=== PATIENT | female | born 1960 | race Caucasian/White ===

== ENCOUNTER 2023-07-23 09:15 | Outpatient (AMB) | payer OTHER, SELFPAY ==
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
[2023-07-23 09:37] VITALS: BP 128/66; PULSE 71; O2SAT 98; BMI 30.2
== END 2023-07-23 10:55 | disposition home or self-care (01) ==
PROVIDERS: PCP Internal Medicine Endocrinology, Diabetes & Metabolism; Visit Provider Psychiatry & Neurology Neurology
DX: R41.89 Other symptoms and signs involving cognitive functions and awareness (principal); R20.0 Anesthesia of skin; R20.2 Paresthesia of skin; G25.81 Restless legs syndrome
CPT/HCPCS: 99204

== ENCOUNTER → 2023-07-23 09:15 | Outpatient (BNVA) | payer OTHER, SELFPAY | PROVIDERS: PCP Internal Medicine Endocrinology, Diabetes & Metabolism; Visit Provider Psychiatry & Neurology Neurology ==

== ENCOUNTER 2023-09-01 12:43 | Outpatient (REF) | payer OTHER, SELFPAY ==
--- NOTE | 2023-09-01 12:45 | EEG_ITS ---
FINDINGS: Waking background activity consists of low voltage fast frequencies seen diffusely intermixed with intermittent low to moderate voltage 9 to 10 hertz posterior alpha frequency. Photic stimulation and hyperventilation are without activation. No sleep stages are identified. No focal, lateralizing, or paroxysmal discharges are seen. IMPRESSION: This waking EEG is within normal limits. MD MAITE Herrera/LETI / [id number]
== END 2023-09-01 12:44 | disposition home or self-care (01) ==
LOC: HO.NEURO 12:43
PROVIDERS: PCP Internal Medicine Endocrinology, Diabetes & Metabolism; Visit Provider Psychiatry & Neurology Neurology
DX: F09 Unspecified mental disorder due to known physiological condition (principal)
CPT/HCPCS: 95816

== ENCOUNTER 2023-09-03 10:16 | Outpatient (REF) | payer OTHER, SELFPAY ==
--- NOTE | 2023-09-03 10:21 | EMG_ITS ---
Right median and ulnar motor and sensory studies were performed. Right radial and median and lateral antecubital brachial sensory studies were performed and paraspinal muscles were tested with a needle. IMPRESSION: Mild right median neuropathy across carpal tunnel. MD REBECCA Harrington/LETI / [id number]
== END 2023-09-03 10:17 | disposition home or self-care (01) ==
LOC: HO.NEURO 10:16
PROVIDERS: PCP Internal Medicine Endocrinology, Diabetes & Metabolism; Visit Provider Psychiatry & Neurology Neurology
DX: R20.0 Anesthesia of skin (principal); R20.2 Paresthesia of skin
CPT/HCPCS: 95886; 95910

== ENCOUNTER 2023-09-23 12:38 | Outpatient (RCR) | payer OTHER, SELFPAY ==
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
== END 2023-12-25 15:50 | disposition still patient (30) ==
LOC: HO.SH 12:38
PROVIDERS: Visit Provider Psychiatry & Neurology Neurology
DX: F09 Unspecified mental disorder due to known physiological condition (principal); I69.911 Memory deficit following unspecified cerebrovascular disease
CPT/HCPCS: 96125

== ENCOUNTER 2023-10-15 11:02 | Outpatient (REF) | payer OTHER, SELFPAY ==
--- NOTE | ~2023-10-15 | CT_ITS ---
EXAMINATION: CT HEAD WITHOUT CONTRAST CLINICAL INFORMATION: Mental disorder. Psychological condition. COMPARISON: None TECHNIQUE: Contiguous axial imaging was performed from the skull base to vertex without intravenous administration of contrast. This CT examination was performed using dose optimization techniques as appropriate, variously including the following: *Automated exposure control. *Adjustment of mA and/or kV according to patient size (this includes techniques or standardized protocols for targeted exams where dose is matched to indication/reason for exam; i.e. extremities or head). *Use of iterative reconstruction technique. DLP: 627 mGy-cm FINDINGS: There is no evidence of acute intracranial hemorrhage or edematous territorial infarction. Alva-white matter differentiation is preserved. Scattered and partially confluent hypoattenuation in the periventricular and deep white matter are consistent with moderate microangiopathy. Proportional prominence of the ventricles and sulcal spaces without evidence of obstructive hydrocephalus. No abnormal mass effect or midline shift. No extra-axial fluid collections. No acute soft tissue or osseous abnormalities. The mastoid air cells and visualized paranasal sinuses are clear. Bilateral lens extractions. Left-sided scleral banding. CT/CT head/brain wo IV con IMPRESSION: 1. No evidence of acute intracranial hemorrhage or edematous territorial infarction. 2. Moderate underlying microangiopathy and generalized cerebral volume loss.
== END 2023-10-15 11:03 | disposition home or self-care (01) ==
LOC: HO.CT 11:02
PROVIDERS: PCP Internal Medicine Endocrinology, Diabetes & Metabolism; Visit Provider Psychiatry & Neurology Neurology
DX: F09 Unspecified mental disorder due to known physiological condition (principal)
CPT/HCPCS: 70450

== ENCOUNTER 2023-11-19 10:12 | Outpatient (AMB) | payer OTHER, SELFPAY ==
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
[2023-11-19 10:32] VITALS: BP 130/82; PULSE 73; RESP 16; O2SAT 97; BMI 30.1
== END 2023-11-19 11:00 | disposition home or self-care (01) ==
PROVIDERS: PCP Internal Medicine Endocrinology, Diabetes & Metabolism; Visit Provider Psychiatry & Neurology Neurology
DX: R41.89 Other symptoms and signs involving cognitive functions and awareness (principal); R20.0 Anesthesia of skin; R20.2 Paresthesia of skin; G25.81 Restless legs syndrome; G56.01 Carpal tunnel syndrome, right upper limb
CPT/HCPCS: 99214; G2211

== ENCOUNTER → 2023-11-19 10:12 | Outpatient (BNVA) | payer OTHER, SELFPAY | PROVIDERS: PCP Internal Medicine Endocrinology, Diabetes & Metabolism; Visit Provider Psychiatry & Neurology Neurology | DX: F09 Unspecified mental disorder due to known physiological condition (principal); R20.0 Anesthesia of skin; R20.2 Paresthesia of skin; G25.81 Restless legs syndrome ==

== ENCOUNTER 2024-05-25 10:14 | Outpatient (AMB) | payer OTHER, SELFPAY ==
[2024-05-25 10:29] VITALS: BP 130/82; BMI 27.4
--- NOTE | 2024-05-25 10:29 | MHC.OFFVIS ---
Vital Signs 05/25/24 10:29 Height 5 ft 3 in Weight 154 lb 8 oz BMI 27.4 BP 130/82 Blood Pressure Location Rt brachial Position Sitting Intake Visit Reasons: 4 mo f/u-Memory Issues/Cog impaired Intake Note: patient presents for 4 month follow up memory. Allergies acetaminophen [From Percocet] Allergy (Mild, Verified 05/25/24 10:32) Migraine azathioprine [From Imuran] Allergy (Mild, Verified 05/25/24 10:32) Unknown celecoxib [From Celebrex] Allergy (Mild, Verified 05/25/24 10:32) Unknown latex Allergy (Mild, Verified 05/25/24 10:32) Unknown metformin Allergy (Mild, Verified 05/25/24 10:32) unknown oxycodone [From Percocet] Allergy (Mild, Verified 05/25/24 10:32) Migraine HPI Comments Details: 64 year old female with H/O anxiety, panic attacks and Cognitive decline presents today for a f/u. 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 She is still having trouble with anxiety Still having trouble with sleep even with Inspire - for sleep apnea - Still wakes up 3x a night, goes to the bathroom, water, and tries to read then goes back to sleep. Avoids the tablets and tv - overstimulates her. Started on Buspar 5mg for anxiety- takes the edge off but still gets startled when comes in the room. Started driving again and when cars pass her, she has panic attacks, heart starts racing, sweating. She is taking Citalopram 20 mg daily. Still taking Gabapentin 100 mg- RLS- Neuropathy -BLE Pramipexole 0.5mg at night only 1 dose. Mood, worried, is losing weight, and she worries about his health. Worries about the safety of her kids 37,35,26, and always prays. Prays a lot - shinto group, active with the bible study group and children's ministry. Works out daily, and has lost 24 pounds 154 today, was 170 last time. Plays on Iphone and memory puzzles, weekends goes out and hiking. Likes to cook but has to turn the seasoning down to remember which ones are used, and uses lots of stickies, and timer for laundry and household task. For cognitive and behavioral therapy, she can't drive very far so wants someone in [place], because it is confusing to her with navigation and directions for distances. [facility] Medical History Carpal tunnel syndrome of right wrist Restless legs syndrome (RLS) Numbness and tingling Cognitive disorder Prediabetes HTN (hypertension) Gastritis Hereditary spherocytosis Osteopenia GERD (gastroesophageal reflux disease) Small fiber neuropathy DVT (deep vein thrombosis) in Pulmonary emboli SLE (systemic lupus erythematosus related syndrome) Kidney stone Fibromyalgia SVT (supraventricular tachycardia) PVC (premature ventricular contraction) IBS (irritable bowel syndrome) Depression Anxiety PCOD (polycystic ovarian disease) Autoimmune hemolytic anemia Retinal detachment History of open sigmoidectomy Family History Father Diabetes Mother Diabetes Brother Diabetes Social History Unable to assess alcohol history related to: Unable to respond and Unknown Alcohol intake: never Patient Tobacco Use Status: Never used Tobacco Review of Systems Const All systems reviewed & are unremarkable except as noted in HPI and below Neuro Reports behavioral changes Psych Reports anxiety, Reports behavioral changes, Reports depression, Reports difficulty concentrating and Reports panic attacks Physical Exam Vital Signs: Last Vital Signs BP 130/82 05/25/24 10:29 BMI result Body Mass Index 27.4 Const General: cooperative, comfortable and no acute distress Nutritional Appearance: average body habitus Orientation/consciousness: patient oriented x3 HEENT Face and sinus: Yes normal facial exam and Yes face symmetric Mouth: tongue normal Eyes General: appearance normal, both eyes and all related structures Pupils: Equal, round and reactive pupils present, Pupils normal by confrontation and Pupil accommodation reflex normal Neck Neck: Yes full ROM and Yes supple Resp Effort & Inspection: normal respiratory effort and able to speak in complete sentences Neuro General: patient oriented x3, tone normal, moves all extremities, Normal light touch and pain sensation and CN's II-XI intact bilaterally Cranial nerves: Yes CN's II-XII intact bilaterally, Yes Facial sensation intact/muscles of mastication intact, Yes Equal, round and reactive pupils present, Yes Normal facial strength present, Yes Midline tongue present, Yes Ability to bilaterally rotate head present and Yes Ability to bilaterally elevate shoulders present Gait exam (Neuro): Normal gait present Motor exam (neuro): 5/5 motor strength present throughout Deep tendon reflexes (DTR's): Right triceps reflex intensity grade: 2+, Left triceps reflex intensity grade: 2+, Rt Biceps (C5, C6): 2+, Left biceps reflex intensity grade: 2+, Right brachioradialis reflex intensity grade: 2+, Left brachioradialis reflex intensity grade: 2+, Right patellar reflex intensity grade: 2+ and Left patellar reflex intensity grade: 2+ Coordination: [id number] test normal Psych Appearance: well kempt Speech and movement: Normal speech and movement present Affect: normal affect Attitude: cooperative Thought process: Normal thought process present Insight: Good insight present (Psych) Judgement: Good judgement present (Psych) Assessment & Plan Assessment & Plan (1) Restless legs syndrome (RLS): Code(s): G25.81 - Restless legs syndrome Category: Medical Plan: Increase Pramipexole to 0.75mg PO at bedtime. For Restless Leg Syndrome (2) Cognitive disorder: Code(s): F09 - Unspecified mental disorder due to known physiological condition Category: Medical Plan: Refer to psychiatry and psychology: Her cognitive issues are likely multi-factorial - poorly controlled mood, sleep deprivation etc. (3) Anxiety: Code(s): F41.9 - Anxiety disorder, unspecified Category: Medical Plan Increase Buspar to 10mg BID, as she continues to have anxiety and panic attacks while driving. Continue citalopram 20mg PO qd Orders: Referrals Psychiatry Outpatient Consultation Service F32.A - Depression, unspecified, F41.9 - Anxiety disorder, unspecified Speech and Hearing Referral F09 - Unspecified mental disorder due to known physiological condition Medications: New pramipexole 0.75 mg PO BEDTIME 30 tabs 5RF pramipexole 0.75 mg PO BEDTIME 30 tabs 5RF Changed From buspirone 5 mg PO BID 60 tabs 6RF To buspirone 10 mg PO BID 60 tabs 6RF Coding Level of Care Code Est Pt Level 4 (93281) Complex EM visit Add On G2211 Diagnoses Restless legs syndrome (RLS) G25.81 Cognitive disorder F09 Anxiety F41.9
== END 2024-05-25 11:12 | disposition home or self-care (01) ==
PROVIDERS: PCP Internal Medicine Endocrinology, Diabetes & Metabolism; Visit Provider Physician Assistant Medical
DX: G25.81 Restless legs syndrome (principal); F41.0 Panic disorder [episodic paroxysmal anxiety]
CPT/HCPCS: 99214

== ENCOUNTER → 2024-05-25 10:14 | Outpatient (BNVA) | payer OTHER, SELFPAY | PROVIDERS: PCP Internal Medicine Endocrinology, Diabetes & Metabolism; Visit Provider Physician Assistant Medical | DX: F09 Unspecified mental disorder due to known physiological condition (principal); R20.0 Anesthesia of skin; R20.2 Paresthesia of skin; G25.81 Restless legs syndrome; G56.01 Carpal tunnel syndrome, right upper limb ==

== ENCOUNTER 2024-06-17 13:49 | Outpatient (AMB) | payer OTHER, SELFPAY ==
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
== END 2024-06-17 14:51 | disposition home or self-care (01) ==
LOC: HO.HOP 13:49
PROVIDERS: PCP Internal Medicine Endocrinology, Diabetes & Metabolism; Visit Provider Clinical Nurse Specialist Psychiatric/Mental Health
DX: F41.1 Generalized anxiety disorder (principal); F41.0 Panic disorder [episodic paroxysmal anxiety]
CPT/HCPCS: 90792

== ENCOUNTER → 2024-06-17 13:49 | Outpatient (BNVA) | payer OTHER, SELFPAY | PROVIDERS: PCP Internal Medicine Endocrinology, Diabetes & Metabolism; Visit Provider Clinical Nurse Specialist Psychiatric/Mental Health | DX: F41.1 Generalized anxiety disorder (principal); F41.0 Panic disorder [episodic paroxysmal anxiety]; Z71.89 Other specified counseling | CPT/HCPCS: 90792 ==

== ENCOUNTER 2024-07-01 13:03 | Outpatient (AMB) | payer OTHER, SELFPAY ==
--- NOTE | 2024-07-01 13:06 | MHC.OFFVISPS ---
Intake Intake Visit Reasons: consult follow up Park Keeper Required: No Allergies acetaminophen [From Percocet] Allergy (Mild, Verified 05/25/24 10:32) Migraine azathioprine [From Imuran] Allergy (Mild, Verified 05/25/24 10:32) Unknown celecoxib [From Celebrex] Allergy (Mild, Verified 05/25/24 10:32) Unknown latex Allergy (Mild, Verified 05/25/24 10:32) Unknown metformin Allergy (Mild, Verified 05/25/24 10:32) unknown oxycodone [From Percocet] Allergy (Mild, Verified 05/25/24 10:32) Migraine Medication List - Last Reconciled 07/01/24 by Claudia Crook APRN amlodipine 10 mg PO DAILY apixaban (Eliquis) 5 mg PO BID buspirone 10 mg PO BID cholecalciferol (vitamin D3) 1,250 mcg PO QWEEK fluticasone propionate 50 mcg/actuation sprays intranasal gabapentin 100 mg PO BEDTIME guanfacine ER 1 mg PO QPM hydroxychloroquine 200 mg PO BID losartan 50 mg PO DAILY losartan 100 mg PO DAILY lubiprostone mcg PO onabotulinumtoxinA (Botox) IM ondansetron HCl 4 mg PO Q8H PRN pantoprazole 40 mg PO BID pramipexole 0.75 mg PO BEDTIME spironolactone 50 mg PO DAILY HPI- Psychiatric Chief Complaint: consult follow up HPI Narrative: Pt much improved. Lo reports feeling much better with medication; no side effects; Her PHQ9= 4 down from 9 and her GAD7 is 10 down from 20 . she has no side eefcts; she does not want to increase the mediction ; she would like to continue it and see how she feels in a feww weeks to moth. no SI no Hi. no dizziness no sedation Past Psychiatric History: Two 24 stays at [facility] after overdose on pills 2013 Subjective Subjective Subjective Medication Compliance: Yes Side effects from medications: No Review of Systems Medical Review of Systems: unchanged Mental Status Exam Mental Status Exam Patient Appearance: Well Grooomed and Appropriate Patient Orientation: Person, Place, Time and Situation Level of Consciousness: Awake, Appropriate and Alert Patient Behavior: Appropriate Mood Description: Calm Affect Description: Calm Patient Cognition Impaired: No Ability to Follow Directions: Good Speech Pattern: Clear and Appropriate Memory Description: Intact Hallucinations: None Delusions: Not Present Thought Process: Intact Thought Content: positive for Intact Judgement: Good Assessment and Plan Assessment & Plan (1) Generalized anxiety disorder with panic attacks: Status: Acute Code(s): F41.1 - Generalized anxiety disorder; F41.0 - Panic disorder [episodic paroxysmal anxiety] Plan continue tenex ER 1 mg daily retrun in 4-6 weeks Counseling and coordination of Care Pt. Self Management counseling: Maintenance-social rhythm, Mod caffeine/ETOH intake, Sleep hygiene, Behavior activation, General coping skills and Problem solving Medication management counseling: Effectiveness, Side effects, Dosing range, Duration, Drug interaction and Adherence Diagnosis and Prognosis Counseling: Accuracy of diagnosis, Prognosis over time, Impact of diagnosis on life functions, Impact of family relationship, Problematic behaviors secondary to diagnosis and Adequacy of current interventions Details: I spent 35 minutes reviewing the record, seeing the patient and documenting in the medical record. Counseling provided to the patient/caregiver as outlined below. Addressed patient/caregiver concerns regarding current medication regime including effective adherence. Addressed patient/caregiver concerns regarding diagnosis and prognosis including accuracy of diagnosis, prognosis over time, impact of diagnosis. Addressed patient/caregiver concerns regarding impact of recent stressors. [facility] Medical History Carpal tunnel syndrome of right wrist Restless legs syndrome (RLS) Numbness and tingling Cognitive disorder Prediabetes HTN (hypertension) Gastritis Hereditary spherocytosis Osteopenia GERD (gastroesophageal reflux disease) Small fiber neuropathy DVT (deep vein thrombosis) in Pulmonary emboli SLE (systemic lupus erythematosus related syndrome) Kidney stone Fibromyalgia SVT (supraventricular tachycardia) PVC (premature ventricular contraction) IBS (irritable bowel syndrome) Depression Anxiety PCOD (polycystic ovarian disease) Autoimmune hemolytic anemia Retinal detachment History of open sigmoidectomy Family History Father Diabetes Mother Diabetes Brother Diabetes Social History Unable to assess alcohol history related to: Unable to respond and Unknown Alcohol intake: never Patient Tobacco Use Status: Never used Tobacco Social History: lives with of 35 yrs. has 3 adult children and 5 grandchildren Substance History: none Trauma History: yes Coding Level of Care Code Est Pt Level 4 (59369) Diagnoses Generalized anxiety disorder with panic attacks F41.1; F41.0
== END 2024-07-01 13:04 | disposition home or self-care (01) ==
LOC: HO.HOP 13:03
PROVIDERS: PCP Internal Medicine Endocrinology, Diabetes & Metabolism; Visit Provider Clinical Nurse Specialist Psychiatric/Mental Health
DX: F41.1 Generalized anxiety disorder (principal); F41.0 Panic disorder [episodic paroxysmal anxiety]
CPT/HCPCS: 99214

== ENCOUNTER 2024-07-26 10:16 | Outpatient (AMB) | payer OTHER, SELFPAY ==
--- NOTE | 2024-07-26 10:21 | A.OFFPSYCH_ITS ---
Intake Intake Visit Reasons: consult follow up Hims Coder Required: No Allergies acetaminophen [From Percocet] Allergy (Mild, Verified 05/25/24 10:32) Migraine azathioprine [From Imuran] Allergy (Mild, Verified 05/25/24 10:32) Unknown celecoxib [From Celebrex] Allergy (Mild, Verified 05/25/24 10:32) Unknown latex Allergy (Mild, Verified 05/25/24 10:32) Unknown metformin Allergy (Mild, Verified 05/25/24 10:32) unknown oxycodone [From Percocet] Allergy (Mild, Verified 05/25/24 10:32) Migraine Medication List - Last Reconciled 07/26/24 by Claudia Crook APRN amlodipine 10 mg PO DAILY apixaban (Eliquis) 5 mg PO BID buspirone 10 mg PO BID cholecalciferol (vitamin D3) 1,250 mcg PO QWEEK fluticasone propionate 50 mcg/actuation sprays intranasal gabapentin 100 mg PO BEDTIME guanfacine ER 1 mg PO QPM hydroxychloroquine 200 mg PO BID losartan 50 mg PO DAILY losartan 100 mg PO DAILY lubiprostone mcg PO onabotulinumtoxinA (Botox) IM ondansetron HCl 4 mg PO Q8H PRN pantoprazole 40 mg PO BID pramipexole 0.75 mg PO BEDTIME spironolactone 50 mg PO DAILY HPI- Psychiatric Chief Complaint: consult follow up HPI Narrative: pt much more anxious; guanfacine not helping with sleep; in interim pt stopped the celexa completely; she also had a difficult family situation with her son being upset that she went to [place] to visit daughters terrance Cisse and then celebrated Betito with him and his family on the . Pt very upset that he was rude to her. She carson not sleeping well at all. No SI or HI. PHQ9=22 and GAD7 = 21 Past Psychiatric History: Two 24 stays at [facility] after overdose on pills 2013 Subjective Subjective Subjective Medication Compliance: Yes Side effects from medications: No Review of Systems Medical Review of Systems: unchanged Mental Status Exam Mental Status Exam Patient Appearance: Well Grooomed and Appropriate Patient Orientation: Person, Place, Time and Situation Level of Consciousness: Awake and Appropriate Patient Behavior: Appropriate and Cooperative Mood Description: Anxious and Sad Affect Description: Anxious and Sad Patient Cognition Impaired: No Ability to Follow Directions: Good Speech Pattern: Clear and Appropriate Memory Description: Intact Hallucinations: None Delusions: Not Present Thought Process: Intact Thought Content: positive for Intact Judgement: Good Assessment and Plan Assessment & Plan (1) Long-term use of high-risk medication: Status: Acute Code(s): Z79.899 - Other manager long term care (current) drug therapy (2) Generalized anxiety disorder with panic attacks: Status: Acute Code(s): F41.1 - Generalized anxiety disorder; F41.0 - Panic disorder [episodic paroxysmal anxiety] Plan restart celexa 20 mg daily continue buspar 10mg BID stop guanfacine start lunesta 1mg at bedtime and may increase every 2-3 night if needed to max of 3mg bedtime EKG to check QTC given celexa, buspar and hydroxychloroquine can prolong QTC Medications: New eszopiclone (Lunesta) 1 mg PO BEDTIME 30 tabs 1RF citalopram (Celexa) 20 mg PO DAILY 30 tabs 0RF Discontinued guanfacine ER Discontinued Reason: Doctor's Order 1 mg PO QPM 30 tabs 3RF Orders: Orders ECG 12 lead EKG Today Z79.899 - Other group home (current) drug therapy Counseling and coordination of Care Pt. Self Management counseling: Maintenance-social rhythm, Med illness tx adherence, Mod caffeine/ETOH intake, Sleep hygiene, General coping skills and Problem solving Medication management counseling: Effectiveness, Side effects, Dosing range, Dur ation, Drug interaction and Adherence Diagnosis and Prognosis Counseling: Accuracy of diagnosis, Prognosis over time, Impact of diagnosis on life functions, Impact of family relationship, Problematic behaviors secondary to diagnosis and Adequacy of current interventions Details: I spent 45 minutes reviewing the record, seeing the patient and documenting in the medical record. Counseling provided to the patient/caregiver as outlined below. Addressed patient/caregiver concerns regarding current medication regime including effective adherence. Addressed patient/caregiver concerns regarding diagnosis and prognosis including accuracy of diagnosis, prognosis over time, impact of diagnosis. Addressed patient/caregiver concerns regarding impact of recent stressors. [facility] Medical History Carpal tunnel syndrome of right wrist Restless legs syndrome (RLS) Numbness and tingling Cognitive disorder Prediabetes HTN (hypertension) Gastritis Hereditary spherocytosis Osteopenia GERD (gastroesophageal reflux disease) Small fiber neuropathy DVT (deep vein thrombosis) in Pulmonary emboli SLE (systemic lupus erythematosus related syndrome) Kidney stone Fibromyalgia SVT (supraventricular tachycardia) PVC (premature ventricular contraction) IBS (irritable bowel syndrome) Depression Anxiety PCOD (polycystic ovarian disease) Autoimmune hemolytic anemia Retinal detachment History of open sigmoidectomy Family History Father Diabetes Mother Diabetes Brother Diabetes Social History Unable to assess alcohol history related to: Unable to respond and Unknown Alcohol intake: never Patient Tobacco Use Status: Never used Tobacco Social History: lives with of 35 yrs. has 3 adult children and 5 grandchildren Substance History: none Trauma History: yes Coding Level of Care Code Est Pt Level 5 (63566) Diagnoses Long-term use of high-risk medication Z79.899 Generalized anxiety disorder with panic attacks F41.1; F41.0
== END 2024-07-26 10:50 | disposition home or self-care (01) ==
LOC: HO.HOP 10:16
PROVIDERS: PCP Internal Medicine Endocrinology, Diabetes & Metabolism; Visit Provider Clinical Nurse Specialist Psychiatric/Mental Health
DX: F41.1 Generalized anxiety disorder (principal); F41.0 Panic disorder [episodic paroxysmal anxiety]; Z79.899 Other long term (current) drug therapy
CPT/HCPCS: 99215

== ENCOUNTER → 2024-07-26 10:16 | Outpatient (REF) | payer OTHER, SELFPAY ==
--- NOTE | 2024-07-26 11:04 | ECG_ITS ---
Test Reason : ALF RISK DRUG THERAPY Blood Pressure : */* mmHG Vent. Rate : 64 BPM Atrial Rate : 64 BPM P-R Int : 158 ms QRS Dur : 88 ms QT Int : 430 ms P-R-T Axes : 18 0 10 degrees QTcB Int : 443 ms Normal sinus rhythm Normal ECG No previous ECGs available Referred By: Claudia Crook Electronically Signed By: Aren Rojo
--- OUTSIDE RECORDS SUMMARY | 2024-07-26 13:00 | XMS_ITS | Continuity of Care Document ---
Author Organization [facility] [address] [facility] [address] [place] [address] Phone [phone] Problems Active Problems Provider Date Autoimmune hemolytic anemia Sheree santos M.D. Onset: 05/01/2022 Polycystic ovary syndrome Sheree Dick M.D. Onset: 05/01/2022 Anxiety Sheree Dick M.D. Ons et: 05/01/2022 Depressive disorder Sheree Dick M.D. Onset: 05/01/2022 Irritable bowel syndrome Sheree Dick M.D. Onset: 05/01/2022 Ventricular premature complex Sheree scott M.D. Onset: 05/01/2022 Premature atrial contraction Sheree broussard M.D. Onset: 05/01/2022 Supraventricular tachycardia Sheree broussard M.D. Onset: 05/01/2022 Fibromyalgia Sheree Dick M.D. Ons et: 05/01/2022 Kidney stone Sheree Dick M.D. Ons et: 05/01/2022 Systemic lupus erythematosus Sheree broussard M.D. Onset: 05/01/2022 Pulmonary embolism Sheree Dick M.D. Onset: 05/01/2022 History of deep vein thrombosis Sheree Hart M.D. Onset: 05/01/2022 Cervical radiculopathy Iam Coleman Onset: 05/01/2022 Obstructive sleep apnea syndrome Sheree Linares M.D. Onset: 05/01/2022 Small fiber neuropathy Iam Coleman Onset: 05/01/2022 Gastroesophageal reflux disease Sheree Hart M.D. Onset: 05/01/2022 Osteopenia Sheree Dick M.D. Ons et: 05/01/2022 Mild cognitive disorder Sheree Dcik M.D. Onset: 05/01/2022 Retinal detachment Sheree Dick M.D. Onset: 05/01/2022 Hereditary spherocytosis Sheree Dick M.D. Onset: 05/01/2022 Helicobacter-associated gastritis Sheree Rodriguez M.D. Onset: 05/01/2022 Essential hypertension Iam Coleman Onset: 08/28/2022 Prediabetes Sheree Dick M.D. 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 ETOH Use Denies alcohol use Tobacco Use Start: Unknown Patient has never smoked Smoking Status Reviewed: 12/30/22 Patient has never sm oked Allergies and adverse reactions Active Allergies Criticality Reaction Severity Comments Date Celebrex Unable to assess criticality 05/01/2022 Imuran Unable to assess criticality 05/01/2022 Metformin Unable to assess criticality 05/01/2022 Percocet Unable to assess criticality 05/01/2022 Latex Unable to assess criticality 05/01/2022 Medications Active Medications SIG Qnty Indications Order ing Provider Date Amlodipine Abwjnqil9yf Tablets 1 by mouth every day 90tabs Sheree Dick M.D. 04/06/2024 Losartan Mialvndkd034wj Tablets 1 by mouth every day 90tabs Sheree Dick M.D. 12/11/2023 Onetouch VerioStrips use 1 strip to check glucose once daily 100units R73.02 Sheree Dick M.D. 12/11/2023 Onetouch Delica Plus Lancets Fine 30GPlus 30G Misc use 1 to skin once daily 100units R73.02 Sheree Dick M.D. 12/11/2023 Ondansetron HCL4mg Tablets take 1 tablet by mouth every 8 hours as needed 30tabs Sheree Dick M.D. 03/06/2023 Albuterol Sulfate QUM560(90Base) mcg/Act Aerosol use 2 puffs every 4 to 6 hours as needed 6.700gm Sheree Dick M.D. 12/30/2022 Fluticasone Xflwvrlfrw06brq/Act Suspension Use 2 Sprays In Each Nostril Once Daily as Needed 48units Sheree Dick M.D. 07/10/2022 Citalopram Zoczrvefptkn74sf Tablets Take One Tablets Daily 135tabs Sheree Dick M.D. 04/06/[address] 1 by mouth every day Unknown Dicyclomine RNO65tc Capsules prn Unknown Animhdbvsvcc95nua Capsules take 2capsule by mouth daily Unknown Buspirone HCL5mg Tablets 1 by mouth twice a day Unknown Iopnpbajxa565cu Capsules take 1 capsules by mouth every day at bedtime Unknown Vitamin H498kor (1000 Ut) Capsules 2 by mouth every day Sheree Dick M.D. Gyhmzpl9me Tablets Take 1 Tablet By Mouth Twice A Day 180tabs Sheree Dick M.D. Xcraopkrvwlbnd33ep Tablets Take 1 Tablet Twice A Day as Directed 180tadejah Dick M.D. Brdhm568Budo Solution Rec Every 3 months Sheree Dick M.D. Acetaminophen Extra Emnpljho118ca Tablets take as directed when needed Unknown Lidocaine5% Patches Use as needed and directed for back pain Unknown Betamethasone Dipropionate0.05% Cream Apply twice daily as needed Unknown Clindamycin Phosphate1% Lotion Apply To Back Once Daily In Am. Unknown Pramipexole Dihydrochloride0.5mg Tablets Take 1 Tablet By Mouth Every Evening For RLS 90tabs Sheree Dick M.D. Hydroxychloroquine Iflaozf085ok Tablets Take 1 tablet twice daily Unknown Vital Signs Date Vital Result Comment 04/06/2024 2:16pm BP Systolic 114 mmHg BP Diastolic 70 mmHg Heart Rate 87 /min Height 63 inches 5'3 Weight 155.50 lb BMI (Body Mass Index) 27.5 kg/m2 Results Test Acquired Date Facility Test Result H/L Range Note Laboratory test finding 04/06/2024 Inhouse Glucose Fingerstick 135 Comp. Metabolic Panel (14) 12/11/2023 [facility] Glucose 60 mg/dL Low 70-99 BUN 20 mg/dL 8-27 Creatinine 0.82 mg/dL 0.57-1.00 eGFR 81 mL/min/1.7 3 >59 BUN/Creatinine Ratio 24 12-28 Sodium 140 mmol/L 134-144 Potassium 4.4 mmol/L 3.5-5.2 Chloride 102 mmol/L 96-106 Carbon Dioxide, Total 23 mmol/L 20-29 Calcium 9.3 mg/dL 8.7-10.3 Protein, Total 7.3 g/dL 6.0-8.5 Albumin 4.2 g/dL 3.9-4.9 Globulin, Total 3.1 g/dL 1.5-4.5 A/G Ratio 1.4 1.2-2.2 Bilirubin, Total 0.4 mg/dL 0.0-1 .2 Alkaline Phosphatase 107 IU/L 44-121 Ast (Sgot) 21 IU/L 0-40 Alt (SGPT) 23 IU/L 0-32 CBC With Differential/P latelet 12/11/2023 [facility] WBC 11.8 x10E3/uL High 3.4-10.8 RBC 4.77 x10E6/uL 3.77-5.28 Hemoglobin 15.4 g/dL 11.1-15.9 Hematocrit 45.8 % 34.0-46.6 MCV 96 fL 79-97 MCH 32.3 pg 26.6-33.0 MCHC 33.6 g/dL 31.5-35.7 RDW 13.1 % 11.7-15.4 Platelets 282 x10E3/uL 150-450 Neutrophils 49 % Not Estab. Lymphs 42 % Not Estab. Monocytes 7 % Not Estab. Eos 1 % Not Estab. Basos 1 % Not Estab. Immature Cells TNP Neutrophils (Absolute) 5.8 x10E3/uL 1.4-7.0 Lymphs (Absolute) 4.9 x10E3/uL High 0.7-3.1 Monocytes(Absol u te) 0.8 x10E3/uL 0.1-0.9 Eos (Absolute) 0.1 x10E3/uL 0.0-0.4 Baso (Absolute) 0.1 x10E3/uL 0.0-0.2 Immature Granulocytes 0 % Not Estab. Immature Grans (Abs) 0.0 x10E3/uL 0.0-0.1 NRBC TNP Hematology Comments: TNP Laboratory test finding 12/11/2023 [facility] TSH Rfx on Abnormal to Free T4 1.540 uIU/mL 0.450-4.50 0 Vitamin D, 25-Hydroxy 24.5 ng/mL Low 30.0-100.0 1 Laboratory test finding 12/11/2023 Inhouse Glucose Fingerstick 271 Lipid Panel 12/30/2022 [facility] Cholesterol, Total 239 mg/dL High (<200) Triglyceride 74 mg/dL (<150) HDL Chol 97 mg/dL (>39) LDL Cholesterol , Calculated 127 mg/dL (0-130) Non HDL Cholesterol (Calc) 142 mg/dL (<160) Laboratory test finding 12/30/2022 [facility] Hemoglobin A1c 5.5 % (4.0-5.6) 2 Basic Metabolic Panel 12/30/2022 [facility] Glucose 96 mg/dL (70-99) BUN 13 mg/dL (8-23) Creatinine 0.7 mg/dL (0.5-1.0) Sodium 136 mmol/L (133-145) Potassium 4.7 mmol/L (3.6-5.2) Chloride 101 mmol/L (98-107) Bicarbonate 24 mmol/L (22-29) Anion Gap 11 (4-17) Calcium 9.5 mg/dL (8.6-10.5) Estimated GFR Creatinine 99 ML/MIN/1.7 3M2 3 Laboratory test finding 12/30/2022 Inhouse Glucose Fingerstick 94 High Fasting Laboratory test finding 10/23/2022 [facility] Canc Ant-125 7 U/ML (0-35) 4 Laboratory test finding 10/22/2022 [facility] Canc Ant-125 <pending> Laboratory test finding 08/28/2022 Inhouse Glucose Fingerstick 127 Laboratory test finding 05/01/2022 Inhouse Glucose Fingerstick 121 1 Vitamin D deficiency has been defined by the [place] [employer] and an Endocrine Society practice guideline as a level of serum 25-OH vitamin D less than 20 ng/mL (1,2). The Endocrine Society went on to further define vitamin D insufficiency as a level between 21 and 29 ng/mL (2). 1. IOM ([place] [employer]). 2010. Dietary reference intakes for calcium and D. [place]: The National Academies Press. 2. Delmy SEGAL, Purvi KULKARNI, Meliton COLLIER, et al. Evaluation, treatment, and prevention of vitamin D deficiency: an Endocrine Society clinical practice guideline. JCEM. 2010; 96(7):1911-30. 2 MONITORING: In known diabetic patients, hemoglobin A1c targets should be discussed with health care provider. DIAGNOSTIC USE: The [place] Diabetes Association (ADA) and the World Health Organization (WHO) recommend the use of HbA1c to diagnose diabetes using a threshold of 6.5%. Patients who have an HbA1c between 5.7% and 6.4% are considered at increased risk for developing diabetes in the future. CAUTION: Falsely low HbA1c results may be observed in patients with hemolytic anemia, homozygous forms of abnormal hemoglobin (e.g. SS, CC, SC), , recent blood loss or hemoglobin F greater than 7%. Fructosamine may be used as an alternate test in these cases. REFERENCE: ADA: Standards of Medical Care in Diabetes 2020, The Journal of Clinical and Applied Research and Education Volume 43, Supplement 1 3 Creatinine based est imated glomerular filtration (eGFR) in adults is calculated using the National Kidney Foundation recommended 2020 CKD-EPI equation. Estimates GFR from serum creatinine, age and sex. 4 Testing performed us ing the [employer] Electrochemilluminescence CA125 assay. Values obtained with other assay methods or kits cannot be used interchangeably. Use results with caution when patient is on monoclonal antibody therapy. Procedures Date Code Description Status 12/11/2023 89535 Electrocardiogram Complete C ompleted 12/11/2023 77154 Collection Of Venous Blood B y Venipuncture Completed 12/30/2022 71458 Collection Of Venous Blood B y Venipuncture Completed 12/24/2021 10828 Electrocardiogram Complete C ompleted 10/09/2021 84866 Collection Of Capillary Bloo d Specimen Completed Medical Devices Description No Information Available Encounters Type Date Location Provider Dx Diagnosis Office Visit 04/06/2024 2:15p Main Office Sheree Dick M.D. R06.00 Dyspnea, unspecified R73.03 Prediabetes G31.84 Mild cognitive impai rment of uncertain or unknown etiology K21.00 Gastro-esophageal re flux dis with esophagitis, without bleed Z86.718 Personal history of other venous thrombosis and embolism F41.1 Generalized anxiety disorder G25.81 Restless legs syndro me K57.32 Dvtrcli of lg int w/ o perforation or abscess w/o bleeding I10 Essential (primary) hypertension M32.9 Systemic lupus eryth ematosus, unspecified Assessments Date Code Description Provider 04/06/2024 R06.00 Dyspnea, unspecified Doris Dick M.D. 04/06/2024 R73.03 Prediabetes Sheree Lniares M.D. 04/06/2024 G31.84 Mild cognitive disorder NOS Sheree Dick M.D. 04/06/2024 K21.00 Gastro-esophagea l reflux disease with esophagitis, without bleeding Sheree Dick M.D. 04/06/2024 Z86.718 Personal history of other venous thrombosis and embolism Sheree Dick M.D. 04/06/2024 F41.1 Generalized anxiety disorder Sheree Dick M.D. 04/06/2024 G25.81 Restless legs syndrome Domingo Dick M.D. 04/06/2024 K57.32 Diverticulitis o f large intestine without perforation or abscess without bleeding Sheree Dick M.D. 04/06/2024 I10 Essential (primary) hyperten julienne Sheree Dick M.D. 04/06/2024 M32.9 Systemic lupus erythematosus NOS Sheree Dick M.D. Plan of Treatment Future Appointment(s):* 08/04/2024 11:00 am - Sheree Dick M.D. at Main Office 04/06/2024 - Sheree Dick M.D.* R06.00 Dyspnea, unspecified * R73.03 Prediabetes * G31.84 Mild cognitive disorder NOS * K21.00 Gastro-esophageal reflux disease with esophagitis, without bleeding * Z86.718 Personal history of other venous thrombosis and embolism * F41.1 Generalized anxiety disorder * G25.81 Restless legs syndrome * K57.32 Diverticulitis of large intestine without perforation or abscess without bleeding * I10 Essential (primary) hypertension * M32.9 Systemic lupus erythematosus NOS * Functional Status Description No Information Available Mental Status Description No Information Available Referrals Refer to Reason for Referral Status Appt Arik e [facility] Allergy Chronic cough/elevated I GE Closed [address] [place] [address] [phone] [facility] Pulmonary DYSPNEA, REDUCED DIFFUSION CAPACITY Closed 04/13/2024 [address] [place] [address] [phone] [facility] Pulmonary PULMONARY FUNCTION T EST EVALUATE DYSPNEA ON EXERTION R/O ASTHMA Closed 01/25/2024 [address] [place] [address] [phone] [facility] Lupus and Fibromyalgia Clos ed [address] [place] [address] [phone] [facility] Neurology & [facility] memory issues/ cognitive and impaired judgment Closed 07/23/2023 [address], [address] [place] [address] [phone] Donna Rodgers MD ELBOW TENDINITIS/LATERAL EPICONDYLITIS Closed [address] [place] [address] [phone] Adal Sexton MD COGNITIVE IMPAIRMENT Closed [address] [facility] [address] [place] [address] [phone] [facility] Neurology DECLAIMING MEMORY Closed 03/[address] [address] [phone]
== END ==
LOC: HO.CARD 10:16
PROVIDERS: PCP Internal Medicine Endocrinology, Diabetes & Metabolism; Visit Provider Clinical Nurse Specialist Psychiatric/Mental Health
DX: Z79.899 Other long term (current) drug therapy (principal); F41.1 Generalized anxiety disorder; F41.0 Panic disorder [episodic paroxysmal anxiety]
CPT/HCPCS: 93005

== ENCOUNTER → 2024-07-26 11:04 | Outpatient (BNV) | payer OTHER, SELFPAY | PROVIDERS: PCP Internal Medicine Endocrinology, Diabetes & Metabolism; Visit Provider Internal Medicine Cardiovascular Disease | DX: Z79.899 Other long term (current) drug therapy (principal) | CPT/HCPCS: 93010 ==

== ENCOUNTER 2024-09-22 09:50 | Outpatient (AMB) | payer OTHER, SELFPAY ==
--- NOTE | 2024-09-22 10:04 | MHC.OFFVIS ---
Vital Signs 09/22/24 10:05 Height 5 ft 3 in Weight 155 lb BMI 27.5 BP 130/80 Blood Pressure Location Rt brachial Position Sitting Pulse 73 Pulse Source Pulse Oximeter Pulse Oximetry (%) 98 Oxygen Delivery Method Room Air Intake Visit Reasons: Follow UP 4mo Intake Note: Patient presents for 4 month follow up RLS and cognitive. Certified Orthotist/Pedorthist Required: No Accompanied by: Self / Same As Patient Allergies acetaminophen [From Percocet] Allergy (Mild, Verified 09/22/24 10:09) Migraine azathioprine [From Imuran] Allergy (Mild, Verified 09/22/24 10:09) Unknown celecoxib [From Celebrex] Allergy (Mild, Verified 09/22/24 10:09) Unknown latex Allergy (Mild, Verified 09/22/24 10:09) Unknown metformin Allergy (Mild, Verified 09/22/24 10:09) unknown oxycodone [From Percocet] Allergy (Mild, Verified 09/22/24 10:09) Migraine amoxicillin [From Augmentin] Allergy (Unknown, Verified 09/22/24 10:09) sdriffe Rash clavulanic acid [From Augmentin] Allergy (Unknown, Verified 09/22/24 10:09) sdriffe Rash HPI Comments Details: 64 year old female with H/O anxiety, panic attacks and Cognitive decline presents today for a f/u. She had moderate to severe Sleep apnea and cpap was not tolerated, now she is on [facility] followed by sleep center at [facility], Dr. Umanzor. She continues to have sleep difficulties and general anxiety with spiraling and intrusive thoughts, she is taking Buspirone 10mg PO BID. Panic attacks are much better now, her mood has improved since last visit, and BP is managed. She is seeing Claudia Sal at [place] for therapy and on Lunesta 2mg PO, she feels it is too sedating. She says her RLS are better with Pramipexole 0.75mg, however she has bilateral hand spasms, when cold water touches her fingers numbness and tingling intensifies. She was dx with small fiber neuropathy by [facility], she continues to take 100mg Gabapentin at night. She still has difficulty with STM, word finding and can not focus so she has to complete one task at a time. She likes to cook has to turn the seasoning jars upside down to remember which ones were used, uses stickies, timer for laundry and tasks, she gets confused when driving long distances and using the GPS navigation. She is socially active with her taoist and community and still working out daily. [facility] Medical History Carpal tunnel syndrome of right wrist Restless legs syndrome (RLS) Numbness and tingling Cognitive disorder Prediabetes HTN (hypertension) Gastritis Hereditary spherocytosis Osteopenia GERD (gastroesophageal reflux disease) Small fiber neuropathy DVT (deep vein thrombosis) in Pulmonary emboli SLE (systemic lupus erythematosus related syndrome) Kidney stone Fibromyalgia SVT (supraventricular tachycardia) PVC (premature ventricular contraction) IBS (irritable bowel syndrome) Depression Anxiety PCOD (polycystic ovarian disease) Autoimmune hemolytic anemia Retinal detachment History of open sigmoidectomy Family History Father Diabetes Mother Diabetes Brother Diabetes Social History Unable to assess alcohol history related to: Unable to respond and Unknown Alcohol intake: never Patient Tobacco Use Status: Never used Tobacco Review of Systems Const All systems reviewed & are unremarkable except as noted in HPI and below Physical Exam Vital Signs: Last Vital Signs Pulse 73 09/22/24 10:05 BP 130/80 09/22/24 10:05 Pulse Ox 98 09/22/24 10:05 Oxygen Delivery Method Room Air 09/22/24 10:05 BMI result Body Mass Index 27.5 Const General: cooperative, comfortable and no acute distress Nutritional Appearance: average body habitus Orientation/consciousness: patient oriented x3 HEENT Face and sinus: Yes normal facial exam and Yes face symmetric Mouth: tongue normal Eyes General: appearance normal, both eyes and all related structures Pupils: Equal, round and reactive pupils present, Pupils normal by confrontation and Pupil accommodation reflex normal Neck Neck: Yes full ROM and Yes supple Resp Effort & Inspection: normal respiratory effort and able to speak in complete sentences Neuro General: patient oriented x3, tone normal, moves all extremities, Normal light touch and pain sensation and CN's II-XI intact bilaterally Cranial nerves: Yes CN's II-XII intact bilaterally, Yes Facial sensation intact/muscles of mastication intact, Yes Equal, round and reactive pupils present, Yes Normal facial strength present, Yes Midline tongue present, Yes Ability to bilaterally rotate head present and Yes Ability to bilaterally elevate shoulders present Gait exam (Neuro): Normal gait present Motor exam (neuro): 5/5 motor strength present throughout and Normal motor muscle tone present throughout Deep tendon reflexes (DTR's): Right triceps reflex intensity grade: 2+, Left triceps reflex intensity grade: 2+, Rt Biceps (C5, C6): 2+, Left biceps reflex intensity grade: 2+, Right brachioradialis reflex intensity grade: 2+, Left brachioradialis reflex intensity grade: 2+, Right patellar reflex intensity grade: 2+ and Left patellar reflex intensity grade: 2+ Coordination: bqiuuf-cx-ntah test normal Psych Appearance: grossly normal Speech and movement: Normal speech and movement present Affect: No normal affect Thought process: Normal thought process present Assessment & Plan Assessment & Plan (1) Restless legs syndrome (RLS): Code(s): G25.81 - Restless legs syndrome Category: Medical (2) Cognitive disorder: Code(s): F09 - Unspecified mental disorder due to known physiological condition Category: Medical (3) Anxiety: Code(s): F41.9 - Anxiety disorder, unspecified Category: Medical (4) Bilateral finger numbness: Code(s): R20.0 - Anesthesia of skin Category: Medical Plan [facility] sleep ctr dr. umanzor notes pending Sleep Difficulties continue Lunesta 2mg PO daily. For Restless Leg Syndrome continue Pramiprexole 0.75mg PO at bedtime. Mood and Anxiety Continue Buspirone to 10mg BID, as she continues to have anxiety. Continue Citalopram 20mg PO qd Numbness and tingling in fingers bilateral hands NCS Cognitive Difficulties STM, will monitor and MMSE and MRI next time if not improved Continue Therapy with Claudia Sal at [facility] Continue going to the gym Orders: Orders NE electromyogram (EMG) 09/22/24 R20.0 - Anesthesia of skin Medications: Refilled gabapentin 100 mg PO BEDTIME 90 caps 6RF Patient Instructions: Refer to psychiatry and psychology: Continue seeing Claudia Sal for mood and anxiety. Her cognitive issues are likely multi-factorial - poorly controlled mood, sleep deprivation etc. Socially stay engaged with community and family events, continue going to the gym, puzzles, bingo and learning new activities to engage the mind and increase neuroplasticity, take Omegas, fish, salmon, vegetables and fruits daily along with 50% of body weight in water. Will f/u with sleep [facility] data Dr. Umanzor's office [facility] sleep ctr Sleep hygiene provided, sleep in a dark cool room, temperatures should be below 68 degrees and no fluids 2 hours prior to sleep. May diffuse essential oils and play soft music do gentle night time yoga. Coding Level of Care Code Est Pt Level 4 (10685) Complex EM visit Add On G2211 Diagnoses Restless legs syndrome (RLS) G25.81 Cognitive disorder F09 Anxiety F41.9 Bilateral finger numbness R20.0 Time Spent (min) 40 Comment Improving
[2024-09-22 10:05] VITALS: BP 130/80; PULSE 73; O2SAT 98; BMI 27.5
--- OUTSIDE RECORDS SUMMARY | 2024-09-22 12:00 | XMS_ITS | Continuity of Care Document ---
Author Organization [facility] [address] [place] [address] Phone [phone] Problems Active Problems Provider Date Autoimmune hemolytic [...] Sheree broussard M.D. Onset: 05/01/2022 Pulmonary embolism Shreee Dick M.D. Onset: 05/01/2022 History of deep vein thrombosis Sheree Hart M.D. Onset: 05/01/2022 Cervical radiculopathy Iam Coleman Onset: 05/01/2022 Obstructive sleep apnea syndrome Sheree Linares M.D. Onset: 05/01/2022 Small fiber neuropathy Iam Coleman Onset: 05/01/2022 Gastroesophageal reflux disease Sheree Hart M.D. Onset: 05/01/2022 Osteopenia Sheree Dick M.D. Ons et: 05/01/2022 Mild cognitive disorder Sheree Dick M.D. Onset: 05/01/2022 Retinal detachment Sheree Dick [...] 05/01/2022 Latex Unable to assess criticality 05/01/2022 Amoxicillin / Clavulanate Unable to assess criticality 08/04/2024 Medications Active Medications SIG Qnty Indications Order ing Provider Date Amlodipine Oxvrfxaf9ku Tablets 1 by mouth every day 90tabs Sheree Dick M.D. 04/06/2024 Losartan Aqymwtzkf925tv Tablets 1 by mouth every day 90tabs [...] 30tabs Sheree Dick M.D. 03/06/2023 Albuterol Sulfate XJS083(90Base) mcg/Act Aerosol use 2 puffs every 4 to 6 hours as needed 6.700gm Sheree Dick M.D. 12/30/2022 Fluticasone Ibewgytzqr38utd/Act Suspension Use 2 Sprays In Each Nostril Once Daily as Needed 48units Sheree Dick M.D. 07/10/2022 Citalopram Oqvoozqxwzvu27ra Tablets Take One Tablets Daily 135tabs Sheree Dick M.D. 04/06/2022 Kpsmnzrsdfk3bd Tablets Unknown Buspirone RRH76jx Tablets 1 by mouth twice a day Unknown Pantoprazole Iydecw22zb Tablets DR 1 by mouth every day Unknown Dicyclomine RJX78lr Capsules prn Unknown Ypfapatdlyoe43qlt Capsules take 2capsule by mouth daily Unknown Wnxdlutazz123hw Capsules take 1 capsules by mouth every day at bedtime Unknown Vitamin M666xhq (1000 Ut) Capsules 2 by mouth every day Sheree Dick M.D. Fqytfrj5el Tablets Take 1 Tablet By Mouth Twice A Day 180tabs Sheree Dick M.D. Qifdfnurwjekbo24lm Tablets Take 1 Tablet Twice A Day as Directed 180tadejah Dick M.D. Qqqkf137Nekj Solution Rec Every 3 months Sheree Dick M.D. Acetaminophen Extra Oisstcpy358rx Tablets take as directed when needed Unknown Lidocaine5% Patches Use as needed and directed for back pain Unknown Betamethasone Dipropionate0.05% Cream Apply twice daily as needed Unknown Clindamycin Phosphate1% Lotion Apply To Back Once Daily In Am. Unknown Pramipexole Dihydrochloride0.5mg Tablets Take 1 Tablet By Mouth Every Evening For RLS 90tabs Sheree Dick M.D. Hydroxychloroquine Qggmzre032tz Tablets Take 1 tablet twice daily Unknown Vital Signs Date Vital Result Comment 08/04/2024 12:59pm BP Systolic 136 mmHg BP Diastolic 86 mmHg Results Test Acquired Date Facility Test Result H/L Range Note Hemoglobin A1c 08/04/2024 [facility] Hemoglobin A1c 5.6 % 4.8-5.6 1 CBC With Differential/Pl atelet 08/04/2024 [facility] WBC 8.5 x10E3/uL 3.4-10.8 RBC 4.72 x10E6/uL 3.77-5.28 Hemoglobin 14.8 g/dL 11.1-15.9 Hematocrit 43.6 % 34.0-46.6 MCV 92 fL 79-97 MCH 31.4 pg 26.6-33.0 MCHC 33.9 g/dL 31.5-35.7 RDW 12.1 % 11.7-15.4 Platelets 283 x10E3/uL 150-450 Neutrophils 43 % Not Estab. Lymphs 49 % Not Estab. Monocytes 6 % Not Estab. Eos 1 % Not Estab. Basos 1 % Not Estab. Immature Cells TNP Neutrophils (Absolute) 3.7 x10E3/uL 1.4-7.0 Lymphs (Absolute) 4.1 x10E3/uL High 0.7-3.1 Monocytes(Absol u te) 0.5 x10E3/uL 0.1-0.9 Eos (Absolute) 0.1 x10E3/uL 0.0-0.4 Baso (Absolute) 0.1 x10E3/uL 0.0-0.2 Immature Granulocytes 0 % Not Estab. Immature Grans (Abs) 0.0 x10E3/uL 0.0-0.1 NRBC TNP Hematology Comments: TNP Glucose Fingerstick 08/04/2024 Inhouse Glucose Fingerstick 103 Comp. Metabolic Panel (14) 08/04/2024 [facility] Glucose 79 mg/dL 70-99 BUN 14 mg/dL 8-27 Creatinine 0.79 mg/dL 0.57-1.00 eGFR 85 mL/min/1. 73 >59 BUN/Creatinine Ratio 18 12-28 Sodium 139 mmol/L 134-144 Potassium 4.2 mmol/L 3.5-5.2 Chloride 100 mmol/L 96-106 Carbon Dioxide, Total 20 mmol/L 20-29 Calcium 9.5 mg/dL 8.7-10.3 Protein, Total 7.6 g/dL 6.0-8.5 Albumin 4.2 g/dL 3.9-4.9 Globulin, Total 3.4 g/dL 1.5-4.5 Bilirubin, Total 0.5 mg/dL 0.0-1 .2 Alkaline Phosphatase 99 IU/L 44-121 Ast (Sgot) 19 IU/L 0-40 Alt (SGPT) 19 IU/L 0-32 Glucose Fingerstick 04/06/2024 Inhouse Glucose Fingerstick 135 Glucose Fingerstick 12/11/2023 Inhouse Glucose Fingerstick 271 Vitamin D, 25-Hydroxy 12/11/2023 [facility] Vitamin D, 25-Hydroxy 24.5 ng/mL Low 30.0-100.0 2 TSH Rfx on Abnormal to Free T4 12/11/2023 [facility] TSH Rfx on Abnormal to Free T4 1.540 uIU/mL 0.450-4.50 0 CBC With Differential/Pl atelet 12/11/2023 [facility] WBC 11.8 x10E3/uL High 3.4-10.8 [...] x10E3/uL 0.0-0.1 NRBC TNP Hematology Comments: TNP Comp. Metabolic Panel (14) 12/11/2023 [facility] Glucose 60 mg/dL Low 70-99 BUN 20 mg/dL 8-27 Creatinine 0.82 mg/dL 0.57-1.00 eGFR 81 mL/min/1. 73 >59 BUN/Creatinine Ratio 24 12-28 Sodium 140 [...] IU/L 0-40 Alt (SGPT) 23 IU/L 0-32 Lipid Panel 12/30/2022 [facility] Reference [facility] Cholesterol, Total 239 mg/dL High (<200) Triglyceride 74 mg/dL (<150) HDL Chol 97 mg/dL (>39) LDL Cholesterol , Calculated 127 mg/dL (0-130) Non HDL Cholesterol (Calc) 142 mg/dL (<160) Hemoglobin A1c 12/30/2022 [facility] Hemoglobin A1c 5.5 % (4.0-5.6) 3 Basic Metabolic Panel 12/30/2022 [facility] Glucose 96 mg/dL (70-99) BUN 13 mg/dL (8-23) Creatinine 0.7 mg/dL (0.5-1.0) Sodium 136 mmol/L (133-145) Potassium 4.7 mmol/L (3.6-5.2) Chloride 101 mmol/L (98-107) Bicarbonate 24 mmol/L (22-29) Anion Gap 11 (4-17) Calcium 9.5 mg/dL (8.6-10.5) Estimated GFR Creatinine 99 ML/MIN/1. 73M2 4 Glucose Fingerstick 12/30/2022 Inhouse Glucose Fingerstick 94 High Fasting Canc Ant-125 10/23/2022 [facility] Reference [facility] Canc Ant-125 7 U/ML (0-35) 5 Canc Ant-125 10/22/2022 [facility] Reference Lab Canc Ant-125 <pending> Glucose Fingerstick 08/28/2022 Inhouse Glucose Fingerstick 127 Glucose Fingerstick 05/01/2022 Inhouse Glucose Fingerstick 121 1 Prediabetes: 5.7 - 6 .4 Diabetes: >6.4 Glycemic control for adults with diabetes: <7.0 2 Vitamin D deficiency has been defined by the Mason of Medicine and an Endocrine Society practice guideline as a level of serum 25-OH vitamin D less than 20 ng/mL (1,2). The Endocrine Society went on to further define vitamin D insufficiency as a level between 21 and 29 ng/mL (2). 1. IOM (Mason of Medicine). 2010. Dietary reference intakes for calcium and D. [place]: The National Academies Press. 2. Delmy MF, Purvi KULKARNI, Meliton COLLIER, et al. Evaluation, treatment, and prevention of vitamin D deficiency: an Endocrine Society clinical practice guideline. JCEM. 2010; 96(7):1911-30. 3 MONITORING: In known diabetic patients, hemoglobin A1c targets should be discussed with health care provider. DIAGNOSTIC USE: The [place] Diabetes Association (ADA) and the World Health [...] Research and Education Volume 43, Supplement 1 4 Creatinine based est imated glomerular filtration (eGFR) in adults is calculated using the National Kidney Foundation recommended 2020 CKD-EPI equation. Estimates GFR from serum creatinine, age and sex. 5 Testing performed us ing the [employer] Electrochemilluminescence CA125 assay. Values obtained with other assay methods or kits cannot be used interchangeably. Use results with caution when patient is on monoclonal antibody therapy. Procedures Date Code Description Status 08/04/2024 03816 Collection Of Venous Blood B y Venipuncture Completed 12/11/2023 03960 Electrocardiogram Complete C ompleted 12/11/2023 21629 Collection Of Venous Blood B y Venipuncture Completed 12/30/2022 22800 Collection Of Venous Blood B y Venipuncture Completed 12/24/2021 89369 Electrocardiogram Complete C ompleted 10/09/2021 96650 Collection Of Capillary Bloo d Specimen Completed Medical Devices Description No Information Available Encounters Type Date Location Provider Dx Diagnosis Office Visit 08/04/2024 11:00a Main Office Sheree Avila M.D. R73.03 Prediabetes G31.84 Mild cognitive impai rment of uncertain or unknown etiology K21.00 Gastro-esophageal re flux dis with esophagitis, without bleed Z86.718 Personal history of other venous thrombosis and embolism F41.1 Generalized anxiety disorder I10 Essential (primary) hypertension M32.9 Systemic lupus eryth ematosus, unspecified J30.9 Allergic rhinitis, u nspecified Assessments Date Code Description Provider 08/04/2024 R73.03 Prediabetes Sheree Linares M.D. 08/04/2024 G31.84 Mild cognitive disorder NOS Sheree Dick M.D. 08/04/2024 K21.00 Gastro-esophagea l reflux disease with esophagitis, without bleeding Sheree Dick M.D. 08/04/2024 Z86.718 Personal history of other venous thrombosis and embolism Sheree Dick M.D. 08/04/2024 F41.1 Generalized anxiety disorder Sheree Dick M.D. 08/04/2024 I10 Essential (primary) hyperten julinene Sheree Dick M.D. 08/04/2024 M32.9 Systemic lupus erythematosus NOS Sheree Dick M.D. 08/04/2024 J30.9 Allergic rhinitis, unspecifi ed Sheree Dick M.D. Plan of Treatment Future Appointment(s):* 01/06/2025 1:15 pm - Sheree Dick M.D. at Main Office 08/04/2024 - Sheree Dick M.D.* R73.03 Prediabetes * G31.84 Mild cognitive disorder NOS * K21.00 Gastro-esophageal reflux disease with esophagitis, without bleeding * Z86.718 Personal history of other venous thrombosis and embolism * F41.1 Generalized anxiety disorder * I10 Essential (primary) hypertension * M32.9 Systemic lupus erythematosus NOS * J30.9 Allergic rhinitis, unspecified Functional Status Description No Information Available Mental Status Description No Information Available Referrals Refer to Dr Reason for Referral Status Appt Arik e [facility] Allergy Chronic cough/elevated I GE Closed [address] [place] [address] [phone] [facility] Pulmonary DYSPNEA, REDUCED DIFFUSION CAPACITY Closed 04/13/2024 [address] [place] [address] [phone] [facility] Pulmonary PULMONARY FUNCTION T EST EVALUATE DYSPNEA ON EXERTION R/O ASTHMA Closed 01/25/2024 [address] [place] [address] [phone] [facility] Lupus and Fibromyalgia Clos ed [address] [place] [address] [phone] [facility] Neurology & S lee Domi memory issues/ cognitive and impaired judgment Closed 07/23/2023 [address] [facility], [address] [place] [address] [phone] Donna Rodgers MD ELBOW TENDINITIS/LATERAL EPICONDYLITIS Closed [address] [place] [address] [phone] Adal Sexton MD COGNITIVE IMPAIRMENT Closed [address] [place] [address] [phone] [facility] Neurology DECLAIMING MEMORY Closed 03/[address] [address] [phone]
--- OUTSIDE RECORDS SUMMARY | 2024-09-22 12:00 | XMS_ITS | Clinical Summary ---
Author Organization [facility] it Address [address] [place] [address] Care Team Providers Care Flight Service Specialist Name Role Phone Unavailable Primary Care Provider Unavailabl e Social History Tobacco Use Types Packs/Day Years Used Date Smoking Tobacco: Never Assessed Comments Unknown Sex and Gender Information Value Date Recorded Sex Assigned at Not on file Legal Sex Female 12:45 PM EST Gender Identity Not on file Sexual Orientation Not on file Plan of Treatment Health Maintenance Due Date Last Done Comments Breast Cancer Screening 1962 COVID-19 Vaccine (#1) 1967 DTaP,Tdap,and Td Vaccines (1 - Tdap) 1981 Cervical Cancer Screening: P ap Smear 1983 Pneumococcal Vaccine: 50+ Ye ars (1 of 1 - PCV) 01/13/2012 Zoster Vaccines (1 of 2) 01/13/2012 Colorectal Cancer Screening: Colonoscopy 08/11/2023 Depression Screening 08/11/2023 HIV Screening 08/11/2023 Hepatitis C Screening 08/11/2023 Social Influencers of Health Screening 08/11/2023 Influenza Vaccine (#1) 2024 05/03/2014 RSV Immunization Patients 60 + Years Old (1 - 1-dose 75+ series) 2037 HIB Vaccines Aged Out No longer eligi ble based on patient's age to complete this topic HPV Vaccines Aged Out No longer eligi ble based on patient's age to complete this topic Hepatitis A Vaccines Aged Out No long er eligible based on patient's age to complete this topic Hepatitis B Vaccines Aged Out No long er eligible based on patient's age to complete this topic IPV Vaccines Aged Out No longer eligi ble based on patient's age to complete this topic MMR Vaccines Aged Out No longer eligi ble based on patient's age to complete this topic Meningococcal ACWY Vaccine Aged Out N o longer eligible based on patient's age to complete this topic Meningococcal B Vacine Aged Out No lo nger eligible based on patient's age to complete this topic Pneumococcal Vaccine: Pediat rics (0 to 5 Years) and At-Risk Patients (6 to 64 Years) Aged Out No longer eligi ble based on patient's age to complete this topic RSV Immunization Patients Un patricia 20 months Aged Out No longer eligible b ased on patient's age to complete this topic Varicella Vaccines Aged Out No longer eligible based on patient's age to complete this topic
== END 2024-09-22 11:06 | disposition home or self-care (01) ==
LOC: HO.HSMS 09:50
PROVIDERS: PCP Internal Medicine Endocrinology, Diabetes & Metabolism; Visit Provider Physician Assistant Medical
DX: G25.81 Restless legs syndrome (principal); R41.89 Other symptoms and signs involving cognitive functions and awareness; F41.9 Anxiety disorder, unspecified; R20.0 Anesthesia of skin
CPT/HCPCS: 99214

== ENCOUNTER → 2024-09-22 09:50 | Outpatient (BNVA) | payer OTHER, SELFPAY | PROVIDERS: PCP Internal Medicine Endocrinology, Diabetes & Metabolism; Visit Provider Physician Assistant Medical ==

== ENCOUNTER 2024-09-26 10:43 | Outpatient (AMB) | payer OTHER, SELFPAY ==
--- NOTE | 2024-09-26 10:52 | A.OFFPSYCH_ITS ---
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 Allergies acetaminophen [From Percocet] Allergy (Mild, Verified 09/22/24 10:09) Migraine azathioprine [From Imuran] Allergy (Mild, Verified 09/22/24 10:09) Unknown celecoxib [From Celebrex] Allergy (Mild, Verified 09/22/24 10:09) Unknown latex Allergy (Mild, Verified 09/22/24 10:09) Unknown metformin Allergy (Mild, Verified 09/22/24 10:09) unknown oxycodone [From Percocet] Allergy (Mild, Verified 09/22/24 10:09) Migraine amoxicillin [From Augmentin] Allergy (Unknown, Verified 09/22/24 10:09) sdriffe Rash clavulanic acid [From Augmentin] Allergy (Unknown, Verified 09/22/24 10:09) sdriffe Rash Medication List - Last Reconciled 09/26/24 by Claudia Crook, TUSHAR amlodipine 5 mg PO DAILY apixaban (Eliquis) 5 mg PO BID buspirone 10 mg PO BID cholecalciferol (vitamin D3) 1,250 mcg PO QWEEK citalopram (Celexa) 20 mg PO DAILY dicyclomine 10 mg PO BID eszopiclone (Lunesta) 2 mg PO BEDTIME fluticasone propionate 50 mcg/actuation sprays intranasal gabapentin 100 mg PO BEDTIME hydroxychloroquine 200 mg PO BID losartan 100 mg PO DAILY lubiprostone mcg PO onabotulinumtoxinA (Botox) IM ondansetron HCl 4 mg PO Q8H PRN pantoprazole 40 mg PO BID pramipexole 0.75 mg PO BEDTIME spironolactone 50 mg PO DAILY HPI- Psychiatric Chief Complaint: consult follow up HPI Narrative: Pt reports doing very well overall; her mood is good. she has some anxiety recently due to her sleep apnea inspire being increased. she says she will call her sleep doctor today and discuss. she reports sleep doctor was concerned that lunesta would decrease resirations but she says she felt much better with lunesta 2mg and slept better through the night. she will try melatonin 1mg and lunesta 1mg for 4-5 days and see if that is enough to sleep well. If not she will return to lunesta 2mg. she has a sleep study scheduled for 3 months. Past Psychiatric History: Two 24 stays at [facility] after overdose on pills 2013 Subjective Subjective Subjective Medication Compliance: Yes Side effects from medications: No Review of Systems Medical Review of Systems: unchanged Mental Status Exam Mental Status Exam Patient Appearance: Well Grooomed Patient Orientation: Person, Place, Time and Situation Level of Consciousness: Awake and Appropriate Patient Behavior: Appropriate and Cooperative Mood Description: Cheerful and Anxious Affect Description: Cheerful and Anxious Patient Cognition Impaired: No Ability to Follow Directions: Good Speech Pattern: Clear, Appropriate and Coherent Memory Description: Intact Hallucinations: None Delusions: Not Present Thought Process: Intact and Goal Oriented Thought Content: positive for Intact and positive for Goal Oriented Judgement: Good Assessment and Plan Assessment & Plan (1) Generalized anxiety disorder with panic attacks: Status: Acute Code(s): F41.1 - Generalized anxiety disorder; F41.0 - Panic disorder [episodic parox ysmal anxiety] (2) Insomnia due to mental condition: Status: Acute Code(s): F51.05 - Insomnia due to other mental disorder Plan continue celexa 20 mg daily continue buspar 10 mg bid trial lunesta 1mg at bedtime in combination with melatonin 1 hour before bed return in 8 weeks Counseling and coordination of Care Pt. Self Management counseling: Maintenance-social rhythm, Mod caffeine/ETOH intake, Sleep hygiene and General coping skills Medication management counseling: Effectiveness, Side effects, Dosing range, Duration, Drug interaction and Adherence Diagnosis and Prognosis Counseling: Accuracy of diagnosis, Prognosis over time, Impact of diagnosis on life functions, Impact of family relationship and Problematic behaviors secondary to diagnosis Details: I spent 35 minutes reviewing the record, seeing the patient and documenting in the medical record. Counseling provided to the patient/caregiver as outlined below. Addressed patient/caregiver concerns regarding current medication regime including effective adherence. Addressed patient/caregiver concerns regarding diagnosis and prognosis including accuracy of diagnosis, prognosis over time, impact of diagnosis. Addressed patient/caregiver concerns regarding impact of recent stressors. [facility] Medical History Carpal tunnel syndrome of right wrist Restless legs syndrome (RLS) Numbness and tingling Cognitive disorder Prediabetes HTN (hypertension) Gastritis Hereditary spherocytosis Osteopenia GERD (gastroesophageal reflux disease) Small fiber neuropathy DVT (deep vein thrombosis) in Pulmonary emboli SLE (systemic lupus erythematosus related syndrome) Kidney stone Fibromyalgia SVT (supraventricular tachycardia) PVC (premature ventricular contraction) IBS (irritable bowel syndrome) Depression Anxiety PCOD (polycystic ovarian disease) Autoimmune hemolytic anemia Retinal detachment History of open sigmoidectomy Family History Father Diabetes Mother Diabetes Brother Diabetes Social History Unable to assess alcohol history related to: Unable to respond and Unknown Alcohol intake: never Patient Tobacco Use Status: Never used Tobacco Social History: lives with of 35 yrs. has 3 adult children and 5 grandchildren Substance History: none Trauma History: yes Coding Level of Care Code Est Pt Level 4 (31310) Diagnoses Generalized anxiety disorder with panic attacks F41.1; F41.0 Insomnia due to mental condition F51.05
--- OUTSIDE RECORDS SUMMARY | 2024-09-26 12:14 | XMS_ITS | Clinical Summary ---
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
--- OUTSIDE RECORDS SUMMARY | 2024-09-26 12:14 | XMS_ITS | Continuity of Care Document ---
Author Organization [facility] [address] [place] [address] Phone [phone] Problems Active Problems Provider Date Autoimmune hemolytic [...] Qnty Indications Order ing Provider Date Amlodipine Zedkcyqt8zz Tablets 1 by mouth every day 90tabs Sheree Dick M.D. 04/06/2024 Losartan Lfjnchyfd066gm Tablets 1 by mouth every day 90tabs [...] 30tabs Sheree Dick M.D. 03/06/2023 Albuterol Sulfate NXR647(90Base) mcg/Act Aerosol use 2 puffs every 4 to 6 hours as needed 6.700gm Sheree Dick M.D. 12/30/2022 Fluticasone Srjkskcblx62ibc/Act Suspension Use 2 Sprays In Each Nostril Once Daily as Needed 48units Sheree Dick M.D. 07/10/2022 Citalopram Gtxzwvhtjbho70hb Tablets Take One Tablets Daily 135tabs Sheree Dick M.D. 04/06/2022 Qwnescbtcde3cb Tablets Unknown Buspirone FMV78ba Tablets 1 by mouth twice a day Unknown Pantoprazole Lfgwch82fa Tablets DR 1 by mouth every day Unknown Dicyclomine WPC38dq Capsules prn Unknown Ntteeklqwwpb99amw Capsules take 2capsule by mouth daily Unknown Cyfrrwaujs705fc Capsules take 1 capsules by mouth every day at bedtime Unknown Vitamin J971pkd (1000 Ut) Capsules 2 by mouth every day Sheree Dick M.D. Rhcqpjg8fj Tablets Take 1 Tablet By Mouth Twice A Day 180tabs Sheree Dick M.D. Vmwfcghzbjpsza42fj Tablets Take 1 Tablet Twice A Day as Directed 180tadejah Dick M.D. Dorvi195Ryxo Solution Rec Every 3 months Sheree Dick M.D. Acetaminophen Extra Setdafac006ez Tablets take as directed when needed Unknown Lidocaine5% Patches Use as needed and directed for back pain Unknown Betamethasone Dipropionate0.05% Cream Apply twice daily as needed Unknown Clindamycin Phosphate1% Lotion Apply To Back Once Daily In Am. Unknown Pramipexole Dihydrochloride0.5mg Tablets Take 1 Tablet By Mouth Every Evening For RLS 90tabs Sheree Dick M.D. Hydroxychloroquine Bnadnjo335zx Tablets Take 1 tablet twice daily Unknown [...] (SGPT) 23 IU/L 0-32 Lipid Panel 12/30/2022 [facility] Cholesterol, Total 239 mg/dL High (<200) Triglyceride 74 mg/dL (<150) HDL Chol 97 mg/dL (>39) LDL Cholesterol , Calculated 127 mg/dL (0-130) Non HDL Cholesterol (Calc) 142 mg/dL (<160) Hemoglobin A1c 12/30/2022 [facility] Hemoglobin A1c 5.5 % (4.0-5.6) 3 Basic Metabolic Panel 12/30/2022 [facility] Glucose 96 mg/dL (70-99) BUN 13 mg/dL (8-23) Creatinine 0.7 mg/dL (0.5-1.0) Sodium 136 mmol/L (133-145) Potassium 4.7 mmol/L (3.6-5.2) Chloride 101 mmol/L (98-107) Bicarbonate 24 mmol/L (22-29) Anion Gap 11 (4-17) Calcium 9.5 mg/dL (8.6-10.5) Estimated GFR Creatinine 99 ML/MIN/1. 73M2 4 Glucose Fingerstick 12/30/2022 Inhouse Glucose Fingerstick 94 High Fasting Canc Ant-125 10/23/2022 [facility] Canc Ant-125 7 U/ML (0-35) 5 Canc Ant-125 10/22/2022 [facility] Canc Ant-125 <pending> Glucose Fingerstick 08/28/2022 Inhouse Glucose Fingerstick 127 Glucose Fingerstick 05/01/2022 Inhouse Glucose Fingerstick 121 1 Prediabetes: 5.7 - 6 .4 Diabetes: >6.4 Glycemic control for adults with diabetes: <7.0 2 Vitamin D deficiency has been defined by the [place] of [employer] and an Endocrine Society practice guideline as a level of serum 25-OH vitamin D less than 20 ng/mL (1,2). The Endocrine Society went on to further define vitamin D insufficiency as a level between 21 and 29 ng/mL (2). 1. IOM ([place] of [employer]). 2010. Dietary reference intakes for calcium and D. [place]: The National Academies Press. 2. Delmy MF, Purvi KULKARNI, Meliton COLLIER, et al. Evaluation, treatment, and prevention of vitamin D deficiency: an Endocrine Society clinical practice guideline. JCEM. 2010; 96(7):1911-30. 3 MONITORING: In known diabetic patients, hemoglobin A1c targets should be discussed with health care provider. DIAGNOSTIC USE: The [place] Diabetes Association (ADA) and the World Health [...] therapy. Procedures Date Code Description Status 08/04/2024 07703 Collection Of Venous Blood B y Venipuncture Completed 12/11/2023 96176 Electrocardiogram Complete C ompleted 12/11/2023 16733 Collection Of Venous Blood B y Venipuncture Completed 12/30/2022 74475 Collection Of Venous Blood B y Venipuncture Completed 12/24/2021 46250 Electrocardiogram Complete C ompleted 10/09/2021 20879 Collection Of Capillary Bloo d Specimen Completed [...] Dick M.D. 08/04/2024 I10 Essential (primary) hyperten julienne Sheree Dick M.D. 08/04/2024 M32.9 Systemic lupus [...] Reason for Referral Status Appt [facility] Allergy Chronic cough/elevated I GE Closed [address] [place] [address] [phone] [facility] Pulmonary DYSPNEA, REDUCED DIFFUSION CAPACITY Closed 04/13/2024 [address] [place] [address] [phone] [facility] Pulmonary PULMONARY FUNCTION T EST EVALUATE DYSPNEA ON EXERTION R/O ASTHMA Closed 01/25/2024 [address] [place] [address] [phone] [facility] Lupus and Fibromyalgia Clos ed [address] [place] [address] [phone] [facility] Neurology & S lee Domi memory issues/ cognitive and impaired judgment Closed 07/23/2023 [address], [address] [place] [address] [phone] Donna Rodgers MD ELBOW TENDINITIS/LATERAL EPICONDYLITIS Closed [address] [place] [address] [phone] Adal Sexton MD COGNITIVE IMPAIRMENT Closed [address] [place] [address] [phone] [facility] Neurology DECLAIMING MEMORY Closed 03/[address] [address] [phone]
== END 2024-09-26 11:09 | disposition home or self-care (01) ==
LOC: HO.HOP 10:43
PROVIDERS: PCP Internal Medicine Endocrinology, Diabetes & Metabolism; Visit Provider Clinical Nurse Specialist Psychiatric/Mental Health
DX: F41.1 Generalized anxiety disorder (principal); F41.0 Panic disorder [episodic paroxysmal anxiety]; F51.05 Insomnia due to other mental disorder
CPT/HCPCS: 99214

== ENCOUNTER 2024-11-22 10:37 | Outpatient (AMB) | payer OTHER, SELFPAY ==
--- NOTE | 2024-11-22 10:45 | MHC.OFFVISPS ---
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 Allergies acetaminophen [From Percocet] Allergy (Mild, Verified 09/22/24 10:09) Migraine azathioprine [From Imuran] Allergy (Mild, Verified 09/22/24 10:09) Unknown celecoxib [From Celebrex] Allergy (Mild, Verified 09/22/24 10:09) Unknown latex Allergy (Mild, Verified 09/22/24 10:09) Unknown metformin Allergy (Mild, Verified 09/22/24 10:09) unknown oxycodone [From Percocet] Allergy (Mild, Verified 09/22/24 10:09) Migraine amoxicillin [From Augmentin] Allergy (Unknown, Verified 09/22/24 10:09) sdriffe Rash clavulanic acid [From Augmentin] Allergy (Unknown, Verified 09/22/24 10:09) sdriffe Rash Medication List - Last Reconciled 11/22/24 by Claudia Crook, TUSHAR amlodipine 5 mg PO DAILY apixaban (Eliquis) 5 mg PO BID buspirone 10 mg PO BID cholecalciferol (vitamin D3) 1,250 mcg PO QWEEK citalopram (Celexa) 20 mg PO DAILY dicyclomine 10 mg PO BID eszopiclone (Lunesta) 1 mg PO BEDTIME fluticasone propionate 50 mcg/actuation sprays intranasal gabapentin 100 mg PO BEDTIME hydroxychloroquine 200 mg PO BID losartan 100 mg PO DAILY lubiprostone mcg PO onabotulinumtoxinA (Botox) IM ondansetron HCl 4 mg PO Q8H PRN pantoprazole 40 mg PO BID pramipexole 0.75 mg PO BEDTIME spironolactone 50 mg PO DAILY HPI- Psychiatric Chief Complaint: consult follow up HPI Narrative: pt reports improved mood, improved anxiety and improved sleep. She reports melatonin and lunesta 1mg has improved her sleep; she is less overwhelmed and less worried. she is tolerating medication without side effects. she denies any SI or HI. Past Psychiatric History: Two 24 stays at [facility] after overdose on pills 2013 Subjective Subjective Subjective Medication Compliance: Yes Side effects from medications: No Review of Systems Medical Review of Systems: unchanged Mental Status Exam Mental Status Exam Patient Appearance: Well Grooomed and Appropriate Patient Orientation: Person, Place, Time and Situation Level of Consciousness: Awake, Appropriate and Alert Patient Behavior: Appropriate and Cooperative Mood Description: Happy Affect Description: Happy Patient Cognition Impaired: No Ability to Follow Directions: Good Speech Pattern: Clear Memory Description: Intact Hallucinations: None Delusions: Not Present Thought Process: Intact and Goal Oriented Thought Content: positive for Intact and positive for Goal Oriented Judgement: Good Assessment and Plan Assessment & Plan (1) Insomnia due to mental condition: Status: Acute Code(s): F51.05 - Insomnia due to other mental disorder (2) Generalized anxiety disorder with panic attacks: Status: Acute Code(s): F41.1 - Generalized anxiety disorder; F41.0 - Panic disorder [episodic paroxysmal anxiety] (3) Major depressive disorder, recurrent episode, in partial remission with mixed features: Status: Acute Code(s): F33.41 - Major depressive disorder, recurrent, in partial remission Plan continue celexa, buspar and lunesta pt will see PCP in December and discuss prescribing hte above meds return in 3 months for follow up and possibly last session if appropraite Medications: Changed From buspirone 10 mg PO BID 60 tabs 6RF To buspirone 10 mg PO BID 3 months 180 tabs 2RF Refilled eszopiclone (Lunesta) 1 mg PO BEDTIME 90 tabs 2RF Counseling and coordination of Care Pt. Self Management counseling: Maintenance-social rhythm, Mod caffeine/ETOH intake, Nutrition education and improvement and General coping skills Medication management counseling: Effectiveness, Side effects, Dosing range, Duration, Drug interaction and Adherence Diagnosis and Prognosis Counseling: Accuracy of diagnosis, Prognosis over time, Impact of diagnosis on life functions, Problematic behaviors secondary to diagnosis and Adequacy of current interventions Details: I spent 30 minutes reviewing the record, seeing the patient and documenting in the medical record. Counseling provided to the patient/caregiver as outlined below. Addressed patient/caregiver concerns regarding current medication regime including effective adherence. Addressed patient/caregiver concerns regarding diagnosis and prognosis including accuracy of diagnosis, prognosis over time, impact of diagnosis. Addressed patient/caregiver concerns regarding impact of recent stressors. [facility] Medical History Carpal tunnel syndrome of right wrist Restless legs syndrome (RLS) Numbness and tingling Cognitive disorder Prediabetes HTN (hypertension) Gastritis Hereditary spherocytosis Osteopenia GERD (gastroesophageal reflux disease) Small fiber neuropathy DVT (deep vein thrombosis) in Pulmonary emboli SLE (systemic lupus erythematosus related syndrome) Kidney stone Fibromyalgia SVT (supraventricular tachycardia) PVC (premature ventricular contraction) IBS (irritable bowel syndrome) Depression Anxiety PCOD (polycystic ovarian disease) Autoimmune hemolytic anemia Retinal detachment History of open sigmoidectomy Family History Father Diabetes Mother Diabetes Brother Diabetes Social History Unable to assess alcohol history related to: Unable to respond and Unknown Alcohol intake: never Patient Tobacco Use Status: Never used Tobacco Social History: lives with of 35 yrs. has 3 adult children and 5 grandchildren Substance History: none Trauma History: yes Coding Level of Care Code Est Pt Level 4 (50042) Diagnoses Insomnia due to mental condition F51.05 Generalized anxiety disorder with panic attacks F41.1; F41.0 Major depressive disorder, recurrent episode, in partial remission with mixed features F33.41
--- OUTSIDE RECORDS SUMMARY | 2024-11-22 11:48 | XMS_ITS | Clinical Summary ---
Author Organization [facility] Address [address] [place] [address] Phone Care Team Providers Care Barber Instructor Name Role Phone Sheree Dick MD Primary Care Provid er Allergies Active Allergy Reactions Criticality Noted Date Comments Amoxicillin-Pot Clavulanate 10/31/2024 SDRIFFE rash Azathioprine Rash,Hives 09/06/2018 Celecoxib Rash 10/31/2024 Latex, Natural Rubber Hives,Itching,Palp it ations,Swelling Low 04/30/2023 Metformin Diarrhea,GI intolerance,Unknown 09/06/2018 Nsaids (Non-Steroidal Anti-Inflammatory Drug) 09/06/2018 Other Reaction(s): GI BLEEDS Oxycodone Itching,Flushing,Hiv es,Nausea And Vomiting,Palpitation s Low 09/06/2018 Medications methocarbamoL (ROBAXIN) 750 mg tablet Take 1 tablet (750 mg total) by mouth 4 (four) times a day for 10 days. 40 each 5 Active lidocaine 4 % patch Apply 1 patch topically 1 (one) time each day. 30 each 5 12/01/19 25 Active Encounters Date Type Department Care Team Description 10/31/2024 10:24 AM EDT - 10/31/2024 2:17 PM EDT Emergency [facility] Emergency [address] [place] [address] Acute left-sided low back pain without sciatica (Primary Dx) Discharge Disposition: Home or Self Care from Last 3 Months Social History Tobacco Use Types Packs/Day Years Used Date Smoking Tobacco: Never Assessed Comments Unknown Sex and Gender Information Value Date Recorded Sex Assigned at Female 10/31/2024 12:55 PM EDT Legal Sex Female 12:45 PM EST Gender Identity Female 10/31/2024 12:55 PM EDT Sexual Orientation Straight 10/31/2024 12 :55 PM EDT Last Filed Vital Signs Vital Sign Reading Time Taken Comments Blood Pressure 117/76 10/31/2024 2:13 PM EDT Pulse 67 10/31/2024 2:13 PM EDT Temperature 36.7 ??C (98.1 ??F) 10/31/2024 2:13 PM ED T Respiratory Rate 16 10/31/2024 2:13 PM EDT Oxygen Saturation 98% 10/31/2024 2:13 PM EDT Inhaled Oxygen Concentration - - Weight 69.9 kg (154 lb) 10/31/2024 9:58 AM EDT Height 160 cm (5' 3 ) 10/31/2024 9:58 AM EDT Body Mass Index 27.28 10/31/2024 9:58 AM EDT Plan of Treatment Health Maintenance Due Date Last Done Comments Breast Cancer Screening 1962 DTaP,Tdap,and Td Vaccines (1 - Tdap) 1981 Cervical Cancer Screening: Pap Smear 1983 Pneumococcal Vaccine: 50+ Years (1 of 1 - PCV) 01/13/2012 Colorectal Cancer Screening: Colonoscopy 08/11/2023 Depression Screening 08/11/2023 HIV Screening 08/11/2023 Hepatitis C Screening 08/11/2023 Social Influencers of Health Screening 08/11/2023 COVID-19 Vaccine ( season) 2024 06/09/2023, 07/16/2022, 01/02/2022, Additional history exists Influenza Vaccine (Season Ended) 2025 05/02/2021, 05/09/2020, 05/03/2014 RSV Immunization Adult Patients (1 - 1-dose 75+ series) 2037 Zoster Vaccines Completed 06/09/2023, 03/19/2023 HIB Vaccines Aged Out No longer eligi [...] age to complete this topic Meningococcal B Vaccine Aged Out No l onger eligible based on patient's age to complete this topic Pneumococcal Vaccine: Pediatrics (0 to 5 Years) and At-Risk Patients (6 to 64 Years) Aged Out No longer eligible based on patient's age to complete this topic RSV Immunization Patients Under 20 months Aged Out No longer eligible based on patient's age to complete this topic Varicella Vaccines Aged Out No longer eligible based on patient's age to complete this topic Procedures Procedure Name Priority Date/Time Associated Diagnosis Comments CT ABDOMEN PELVIS W CONTRAST STAT 10/31/2024 1:08 PM EDT ALVA URINE CULTURE TUBE STAT 10/31/2024 10:56 AM EDT URINALYSIS WITH REFLEX MICROSCOPIC AND CULTURE STAT 10/31/2024 10:56 AM EDT URINALYSIS WITH REFLEX MICROSCOPIC AND CULTURE STAT 10/31/2024 10:56 AM EDT CBC WITH AUTO DIFFERENTIAL STAT 10/31/2024 10:15 AM EDT COMPREHENSIVE METABOLIC PANEL STAT 10/31/2024 10:15 AM EDT CBC AND DIFFERENTIAL STAT 10/31/2024 10:15 AM EDT from Last 3 Months Results * CT Abdomen Pelvis w Contrast (10/31/2024 1:08 PM EDT) Anatomical Region Laterality Modality Body Computed Tomogra phy 10/31/2024 1:37 PM EDT Impressions 10/31/2024 1:41 PM EDT Extensive colonic diverticulosis without evidence for acute diverticulitis. -------- FINAL REPORT -------- Dictated By: Schuyler Silverio Dictated Date: 10/31/2024 13:37 ET Assigned Physician: Schuyler Silverio Reviewed and Electronically Signed By: Schuyler Silverio Signed Date: 10/31/2024 13:41 ET Workstation ID: [id number] Transcribed By: Self Edit Transcribed Date: 10/31/2024 13:37 ET Narrative 10/31/2024 1:41 PM EDT PROCEDURE: CT ABDOMEN/PELVIS WITH CONTRAST INDICATION: left lower back, recent hx of diverticulitis TECHNIQUE: CT of the abdomen and pelvis following the intravenous administration of 90cc Isovue 370. Multiplanar reformats. The examination was performed utilizing dose reduction techniques. Total DLP 818 COMPARISON: ??No priors available. FINDINGS: ?? LOWER THORAX: Lung bases are clear. HEPATOBILIARY: Atrophy left hepatic lobe. ??No suspicious lesion. No cholelithiasis or biliary duct dilatation. SPLEEN: Splenectomy. PANCREAS: No focal mass or ductal dilatation. ADRENALS: No nodules. KIDNEYS/URETERS: No hydronephrosis, stones, or solid mass. PELVIC ORGANS/BLADDER: Small fibroid. ??No suspicious mass. PERITONEUM / RETROPERITONEUM: No ascites or free air. No retroperitoneal lymphadenopathy. VESSELS: No aneurysm. GI TRACT: Extensive colonic diverticulosis without evidence for acute diverticulitis. ??Appendectomy. BONES AND SOFT TISSUES: Scattered degenerative changes seen throughout the bones. Soft tissues are unremarkable. Procedure Note Schuyler Silverio MD - 10/31/2024 PROCEDURE: CT ABDOMEN/PELVIS WITH CONTRAST INDICATION: left lower back, recent hx of diverticulitis TECHNIQUE: CT of the abdomen and pelvis following the intravenousadministration of 90cc Isovue 370. Multiplanar reformats. The examinationwas performed utilizing dose reduction techniques. Total DLP 818 COMPARISON: No priors available. FINDINGS: LOWER THORAX: Lung bases are clear. HEPATOBILIARY: Atrophy left hepatic lobe. No suspicious lesion. Nocholelithiasis or biliary duct dilatation. SPLEEN: Splenectomy. PANCREAS: No focal mass or ductal dilatation. ADRENALS: No nodules. KIDNEYS/URETERS: No hydronephrosis, stones, or solid mass. PELVIC ORGANS/BLADDER: Small fibroid. No suspicious mass. PERITONEUM / RETROPERITONEUM: No ascites or free air. No retroperitoneallymphadenopathy. VESSELS: No aneurysm. GI TRACT: Extensive colonic diverticulosis without evidence for acutediverticulitis. Appendectomy. BONES AND SOFT TISSUES: Scattered degenerative changes seen throughout thebones. Soft tissues are unremarkable. IMPRESSION: Extensive colonic diverticulosis without evidence for acutediverticulitis. -------- FINAL REPORT -------- Dictated By: Schuyler Silverio Dictated Date: 10/31/2024 13:37 ET Assigned Physician: Schuyler Silverio Reviewed and Electronically Signed By: Schuyler Silverio Signed Date: 10/31/2024 13:41 ET Workstation ID: [id number] Transcribed By: Self Edit Transcribed Date: 10/31/2024 13:37 ET Jocy HAGEN IMG CT PROCEDURES Final Re sult * Urinalysis with reflex microscopic and culture (10/31/2024 10:56 AM EDT) Specific [place] Urine 1.015 1.003 - 1.030 LAB URINALYSIS - AUTOMATED METHOD 10/31/2024 11:39 AM [facility] pH, Urine 7.0 5.0 - 8.0 pH LAB URINALYSIS - AUTOMATED METHOD 10/31/2024 11:39 AM [facility] Leukocytes, Urine Negative Negative LAB URINALYSIS - AUTOMATED METHOD 10/31/2024 11:39 AM [facility] Nitrite, Urine Negative Negative LAB URINALYSIS - AUTOMATED METHOD 10/31/2024 11:39 AM [facility] Protein, Urine Negative <=Trace mg/dL LAB URINALYSIS - AUTOMATED METHOD 10/31/2024 11:39 AM [facility] Glucose, Urine Negative Negative mg/dL LAB URINALYSIS - AUTOMATED METHOD 10/31/2024 11:39 AM [facility] Ketones, Urine Negative Negative mg/dL LAB URINALYSIS - AUTOMATED METHOD 10/31/2024 11:39 AM [facility] Urobilinogen, Urine 0.2 0.2 - 1.0 mg/dL LAB URINALYSIS - AUTOMATED METHOD 10/31/2024 11:[address] [facility] Bilirubin, Urine Negative Negative LAB URINALYSIS - AUTOMATED METHOD 10/31/2024 11:[address] [facility] Blood, Urine Negative Negative LAB URINALYSIS - AUTOMATED METHOD 10/31/2024 11:[address] [facility] Urine Urine specimen obtained by clean catch procedure / Unknown Non-blood Collection / Unknown 10/31/2024 10:56 AM EDT 10/31/2024 11:28 AM EDT us Chintan Serrano MD LAB URINE ORDERABLES Final Resu lt Performing Organization Address City/[facility]/ZIP Co de Phone Number [facility] [address] [place] [address], [place] [phone] * Alva urine culture tube (10/31/2024 10:56 AM EDT) Extra Tube Hold for add-ons. 10/31/2024 1:[address] [facility] Comment:Auto resulted. Urine Urine specimen obtained by clean catch procedure / Unknown Non-blood Collection / Unknown 10/31/2024 10:56 AM EDT 10/31/2024 11:28 AM EDT us Chintan Serrano MD LAB URINE ORDERABLES Final Resu lt [facility] [address] [place] [address], [place] [phone] * (ABNORMAL) CBC auto differential (10/31/2024 10:15 AM EDT) WBC 6.2 4.8 - 10.8 K/mcL LAB HEMETOLOGY METHOD 10/31/2024 10:52 AM [facility] RBC 4.20 3.80 - 4.80 M/mcL LAB HEMETOLOGY METHOD 10/31/2024 10:52 AM [facility] Hemoglobin 13.6 11.5 - 16.0 g/dL LAB HEMETOLOGY METHOD 10/31/2024 10:52 AM [facility] Hematocrit 41.8 35.0 - 47.0 % LAB HEMETOLOGY METHOD 10/31/2024 10:52 AM [facility] MCV 98.8(H) 79.0 - 98.0 FL LAB HEMETOLOGY METHOD 10/31/2024 10:52 AM [facility] MCH 32.2(H) 27.0 - 32.0 pcg LAB HEMETOLOGY METHOD 10/31/2024 10:52 AM [facility] MCHC 32.5 32.0 - 37.0 g/dL LAB HEMETOLOGY METHOD 10/31/2024 10:52 AM [facility] RDW 14.1 11.0 - 15.0 % LAB HEMETOLOGY METHOD 10/31/2024 10:52 AM [facility] Platelets 283 130 - 400 K/mcL LAB HEMETOLOGY METHOD 10/31/2024 10:52 AM [facility] MPV 10.4 7.0 - 11.0 FL LAB HEMETOLOGY METHOD 10/31/2024 10:52 AM [facility] NRBC 0.0 <1.0 % LAB HEMETOLOGY METHOD 10/31/2024 10:52 AM [facility] NRBC Absolute 0.00 <0.10 K/mcL LAB HEMETOLOGY METHOD 10/31/2024 10:52 AM [facility] Neutrophils Relative 35.7 % LAB HEMETOLOGY METHOD 10/31/2024 10:52 AM [facility] Lymphocytes Relative 48.0 % LAB HEMETOLOGY METHOD 10/31/2024 10:[address] [facility] Monocytes Relative 10.4 % LAB HEMETOLOGY METHOD 10/31/2024 10:52 AM [facility] Eosinophils Relative 4.2 % LAB HEMETOLOGY METHOD 10/31/2024 10:[address] [facility] Basophils Relative 1.5 % LAB HEMETOLOGY METHOD 10/31/2024 10:52 AM [facility] Immature Granulocytes Relative 0.2 % LAB HEMETOLOGY METHOD 10/31/2024 10:52 AM [facility] Neutrophils Absolute 2.21 1.50 - 7.00 K/mcL LAB HEMETOLOGY METHOD 10/31/2024 10:52 AM [facility] Lymphocytes Absolute 2.96 1.00 - 5.00 K/mcL LAB HEMETOLOGY METHOD 10/31/2024 10:52 AM [facility] Monocytes Absolute 0.64 0.20 - 1.00 K/mcL LAB HEMETOLOGY METHOD 10/31/2024 10:52 AM [facility] Eosinophils Absolute 0.26 0.00 - 0.50 K/mcL LAB HEMETOLOGY METHOD 10/31/2024 10:52 AM [facility] Basophils Absolute 0.09 0.00 - 0.20 K/mcL LAB HEMETOLOGY METHOD 10/31/2024 10:52 AM [facility] Immature Granulocytes Absolute 0.01 0.00 - 0.03 K/mcL LAB HEMETOLOGY METHOD 10/31/2024 10:52 AM [facility] Blood Venous blood specimen / Unknown Venipuncture / Unknown 10/31/2024 10:15 AM EDT 10/31/2024 10:41 AM EDT us Chintan Serrano MD LAB BLOOD ORDERABLES Final Resu lt [facility] [address] [place] [address], * (ABNORMAL) Comprehensive metabolic panel (10/31/2024 10:15 AM EDT) Sodium 142 133 - 145 mmol/L LAB CHEMISTRY METHOD 10/31/2024 11:18 AM [facility] Potassium 4.2 3.5 - 5.5 mmol/L LAB CHEMISTRY METHOD 10/31/2024 11:18 AM [facility] Chloride 110 96 - 110 mmol/L LAB CHEMISTRY METHOD 10/31/2024 11:18 AM [facility] CO2 24 21 - 32 mmol/L LAB CHEMISTRY METHOD 10/31/2024 11:18 AM [facility] Anion Gap 8 3 - 11 LAB CHEMISTRY METHOD 10/31/2024 11:18 AM [facility] Glucose 132(H) 70 - 100 mg/dL LAB CHEMISTRY METHOD 10/31/2024 11:18 AM [facility] BUN 14 5 - 25 mg/dL LAB CHEMISTRY METHOD 10/31/2024 11:18 AM [facility] Creatinine 0.76 0.50 - 1.10 mg/dL LAB CHEMISTRY METHOD 10/31/2024 11:18 AM [facility] eGFR 89 >=60 mL/min/1. 73m2 LAB CHEMISTRY METHOD 10/31/2024 11:18 AM [facility] Comment:Calculation based on the??Chronic Kidney Disease Epidemiology Collaboration (CKD-EPI) equation refit??without adjustment for race. BUN/Creatinine Ratio 18.4 LAB CHEMISTRY METHOD 10/31/2024 11:18 AM [facility] Calcium 9.3 8.5 - 10.5 mg/dL LAB CHEMISTRY METHOD 10/31/2024 11:[address] [facility] AST (SGOT) 26 10 - 42 unit/L LAB CHEMISTRY METHOD 10/31/2024 11:[address] [facility] ALT (SGPT) 74(H) 10 - 60 unit/L LAB CHEMISTRY METHOD 10/31/2024 11:[address] [facility] Alkaline Phosphatase 78 42 - 121 unit/L LAB CHEMISTRY METHOD 10/31/2024 11:[address] [facility] Total Protein 7.4 6.0 - 8.0 g/dL LAB CHEMISTRY METHOD 10/31/2024 11:[address] [facility] Albumin 3.4 3.2 - 5.0 g/dL LAB CHEMISTRY METHOD 10/31/2024 11:18 AM [facility] Total Bilirubin 0.3 0.0 - 1.4 mg/dL LAB CHEMISTRY METHOD 10/31/2024 11:[address] [facility] Blood Venous blood specimen / Unknown Venipuncture / Unknown 10/31/2024 10:15 AM EDT 10/31/2024 10:42 AM EDT us Chintan Serrano MD LAB BLOOD ORDERABLES Final Resu lt [facility] [address] [place] [address], from Last 3 Months Insurance MEDICARE [employer] Care Teams Barber Instructor Relationship Specialty Start Date End Date Sheree Dick MD [address] [place] [address] [address] [place] [address] PCP - General Endocrinology 10/31/24
--- OUTSIDE RECORDS SUMMARY | 2024-11-22 11:48 | XMS_ITS | Continuity of Care Document ---
Author Organization [facility] [address] [place] [address] Phone [phone] Problems Active Problems Provider Date Autoimmune hemolytic [...] Qnty Indications Order ing Provider Date Amlodipine Jdlxgckk4zj Tablets 1 by mouth every day 90tabs Sheree Dick M.D. 04/06/2024 Losartan Nlfwyuqux136nd Tablets 1 by mouth every day 90tabs [...] 30tabs Sheree Dick M.D. 03/06/2023 Albuterol Sulfate [id number](90Base) mcg/Act Aerosol use 2 puffs every 4 to 6 hours as needed 6.700gm Sheree Dick M.D. 12/30/2022 Fluticasone Zspkszjrci06ezt/Act Suspension Use 2 Sprays In Each Nostril Once Daily as Needed 48units Sheree Dick M.D. 07/10/2022 Citalopram Gembiskubplq46pv Tablets Take One Tablets Daily 135tabs Sheree Dick M.D. 04/06/2022 Qzhjjhkbbxh3jp Tablets Unknown Buspirone WXK82sn Tablets 1 by mouth twice a day Unknown Pantoprazole Mvwsvr04nu Tablets DR 1 by mouth every day Unknown Dicyclomine WCK52mp Capsules prn Unknown Rhhqmrdschjp61zlw Capsules take 2capsule by mouth daily Unknown Qxfgsifdxl670ni Capsules take 1 capsules by mouth every day at bedtime Unknown Vitamin J778nvr (1000 Ut) Capsules 2 by mouth every day Sheree Dick M.D. Fiyaict7vi Tablets Take 1 Tablet By Mouth Twice A Day 180tadejah Dick M.D. Xmekpbmtciqnei76ub Tablets Take 1 Tablet Twice A Day as Directed 180tadejah Dick M.D. Lgcyu955Ffra Solution Rec Every 3 months Sheree Dick M.D. Acetaminophen Extra Ioywvndz770ia Tablets take as directed when needed Unknown Lidocaine5% Patches apply for 12 hours, remove for 12 hours for back pain 30units Sheree Dick M.D. Betamethasone Dipropionate0.05% Cream Apply twice daily as needed Unknown Clindamycin Phosphate1% Lotion Apply To Back Once Daily In Am. Unknown Pramipexole Dihydrochloride0.5mg Tablets Take 1 Tablet By Mouth Every Evening For RLS 90tabs Sheree Dick M.D. Hydroxychloroquine Wvilvqi595nz Tablets Take 1 tablet twice daily Unknown [...] (SGPT) 23 IU/L 0-32 Lipid Panel 12/30/2022 [facility] Cholesterol, Total 239 mg/dL High (<200) Triglyceride 74 mg/dL (<150) HDL Chol 97 mg/dL (>39) LDL Cholesterol , Calculated 127 mg/dL (0-130) Non HDL Cholesterol (Calc) 142 mg/dL (<160) Hemoglobin A1c 12/30/2022 [facility] Hemoglobin A1c 5.5 % (4.0-5.6) 3 Basic Metabolic Panel 12/30/2022 [facility] Glucose 96 mg/dL (70-99) BUN 13 mg/dL (8-23) Creatinine 0.7 mg/dL (0.5-1.0) Sodium 136 mmol/L (133-145) Potassium 4.7 mmol/L (3.6-5.2) Chloride 101 mmol/L (98-107) Bicarbonate 24 mmol/L (22-29) Anion Gap 11 (4-17) Calcium 9.5 mg/dL (8.6-10.5) Estimated GFR Creatinine 99 ML/MIN/1. 73M2 4 Glucose Fingerstick 12/30/2022 Inhouse Glucose Fingerstick 94 High Fasting Canc Ant-125 10/23/2022 [facility] Canc Ant-125 7 U/ML (0-35) 5 Canc Ant-125 10/22/2022 [facility] Canc Ant-125 <pending> Glucose Fingerstick 08/28/2022 Inhouse Glucose Fingerstick 127 Glucose Fingerstick 05/01/2022 Inhouse Glucose Fingerstick 121 1 Prediabetes: 5.7 - 6 .4 Diabetes: >6.4 Glycemic control for adults with diabetes: <7.0 2 Vitamin D deficiency has been defined by the [place] of Medicine and an Endocrine Society practice guideline as a level of serum 25-OH vitamin D less than 20 ng/mL (1,2). The Endocrine Society went on to further define vitamin D insufficiency as a level between 21 and 29 ng/mL (2). 1. IOM ([place] of Medicine). 2010. Dietary reference intakes for calcium and D. [place]: The National Academies Press. 2. Delmy SEGAL, Purvi KULKARNI, Meliton COLLIER, et al. Evaluation, treatment, and prevention of vitamin D deficiency: an Endocrine Society clinical practice guideline. JCEM. 2010; 96(7):1911-30. 3 MONITORING: In known diabetic patients, hemoglobin A1c targets should be discussed with health care provider. DIAGNOSTIC USE: The [place] Diabetes Association (ADA) and the World Health [...] therapy. Procedures Date Code Description Status 08/04/2024 17210 Collection Of Venous Blood B y Venipuncture Completed 12/11/2023 60584 Electrocardiogram Complete C ompleted 12/11/2023 48521 Collection Of Venous Blood B y Venipuncture Completed 12/30/2022 01493 Collection Of Venous Blood B y Venipuncture Completed 12/24/2021 76015 Electrocardiogram Complete C ompleted 10/09/2021 61856 Collection Of Capillary Bloo d Specimen Completed [...] 08/04/2024 M32.9 Systemic lupus erythematosus NOS Sheree Dcik M.D. 08/04/2024 J30.9 Allergic rhinitis, unspecifi ed [...] Reason for Referral Status Appt Arik e [facility] Allergy Chronic cough/elevated I GE Closed [address] [place] [address] [phone] [facility] Pulmonary DYSPNEA, REDUCED DIFFUSION CAPACITY Closed 04/13/2024 [address] [place] [address] [phone] [facility] Pulmonary PULMONARY FUNCTION T EST EVALUATE DYSPNEA ON EXERTION R/O ASTHMA Closed 01/25/2024 [address] [place] [address] [phone] [facility] Lupus and Fibromyalgia Clos ed [address] [place] [address] [phone] [facility] Neurology & S lee Domi memory issues/ cognitive and impaired judgment Closed 07/23/2023 [address] [facility], [address] [place] [address] [phone] Donna Rodgers MD ELBOW TENDINITIS/LATERAL EPICONDYLITIS Closed [address] [place] [address] [phone] Adal Sexton MD COGNITIVE IMPAIRMENT Closed [address] [place] [address] [phone] [facility] Neurology DECLAIMING MEMORY Closed 03/[address] [address] [phone]
== END 2024-11-22 10:57 | disposition home or self-care (01) ==
LOC: HO.HOP 10:37
PROVIDERS: PCP Internal Medicine Endocrinology, Diabetes & Metabolism; Visit Provider Clinical Nurse Specialist Psychiatric/Mental Health
DX: F51.05 Insomnia due to other mental disorder (principal); F41.1 Generalized anxiety disorder; F41.0 Panic disorder [episodic paroxysmal anxiety]; F33.41 Major depressive disorder, recurrent, in partial remission
CPT/HCPCS: 99214

== ENCOUNTER → 2024-11-22 10:37 | Outpatient (BNVA) | payer OTHER, SELFPAY | PROVIDERS: PCP Internal Medicine Endocrinology, Diabetes & Metabolism; Visit Provider Clinical Nurse Specialist Psychiatric/Mental Health | DX: Z79.899 Other long term (current) drug therapy (principal) ==

== ENCOUNTER 2024-12-22 10:25 | Outpatient (AMB) | payer OTHER, SELFPAY ==
--- NOTE | 2024-12-22 10:30 | A.OFFVIS_ITS ---
Vital Signs 12/22/24 10:35 Height 5 ft 3 in Weight 158 lb 4 oz BMI 28.0 BP 132/88 Blood Pressure Location Lt brachial Position Sitting Pulse 68 Pulse Source Pulse Oximeter Pulse Oximetry (%) 96 Oxygen Delivery Method Room Air Intake Visit Reasons: 3 mnts f/u Intake Note: Patient presents follow up RLS. EMG in chart Project Management Manager Required: No Accompanied by: Self / Same As Patient Allergies acetaminophen [From Percocet] Allergy (Mild, Verified 12/22/24 10:35) Migraine azathioprine [From Imuran] Allergy (Mild, Verified 12/22/24 10:35) Unknown celecoxib [From Celebrex] Allergy (Mild, Verified 12/22/24 10:35) Unknown latex Allergy (Mild, Verified 12/22/24 10:35) Unknown metformin Allergy (Mild, Verified 12/22/24 10:35) unknown oxycodone [From Percocet] Allergy (Mild, Verified 12/22/24 10:35) Migraine amoxicillin [From Augmentin] Allergy (Unknown, Verified 12/22/24 10:35) sdriffe Rash clavulanic acid [From Augmentin] Allergy (Unknown, Verified 12/22/24 10:35) sdriffe Rash HPI Comments Details: 64 year old female with H/O anxiety, panic attacks and Cognitive decline presents today for a f/u. 2024 ED visit [facility] Diverticulitis and managed with cipro and flagyl for 2 weeks, +fluids. 10/31/2024 ED Ju severe flank pain, muscle or nerve? going to PT then will f/u with physiotrist. 12/11/2024 ED Ju N/V and Diarrhea trip to [facility], had multiple rutherford cocktails for Gastroenteritis. HST 12/2024 [facility] pending results for Inspire titration. She is being followed by Rheumatology for SLE and Raynaud's. Goes to bed at 11pm and wakes up at 4am then she can not fall asleep she is now on Lunesta and Melatonin. She had moderate to severe sleep apnea and cpap and did not tolerate cpap use and mask, now she is on Inspire Therapy followed by sleep center at [facility], Dr. Umanzor. She continues to have general anxiety with spiraling and intrusive thoughts, she is taking Buspirone 10mg PO BID, managed by psychiatrist. Panic attacks are much better now, her mood has improved since last visit, and BP is managed. She is seeing Claudia Sal at [facility] for therapy and on Lunesta 2mg PO and feels it is sedating. She says her RLS symptoms are better with Pramipexole 0.75mg, however she has bilateral hand spasms, when cold or hot water touches her fingers with numbness and tingling that intensifies. She was dx with small fiber neuropathy by [facility], she continues to take 100mg Gabapentin at night. She still has difficulty with STM, word finding, recall, lacks attention and focus. She has to complete one task at a time purposefully and mindfully. Patient education provided on self care today. She likes to cook has to turn the seasoning jars upside down to remember which ones were used, uses stickies at home, and a timer for laundry. She gets confused when driving long distances and using the GPS navigation though she is adapting with coping strategies. She is socially active with her adventism, community and social activities. She walks daily as tolerable and is continuing with PT. MMSE is 29/30 today Request inspire therapy logs with Dr. Umanzor. [facility] Medical History Carpal tunnel syndrome of right wrist Restless legs syndrome (RLS) Numbness and tingling Cognitive disorder Prediabetes HTN (hypertension) Gastritis Hereditary spherocytosis Osteopenia GERD (gastroesophageal reflux disease) Small fiber neuropathy DVT (deep vein thrombosis) in Pulmonary emboli SLE (systemic lupus erythematosus related syndrome) Kidney stone Fibromyalgia SVT (supraventricular tachycardia) PVC (premature ventricular contraction) IBS (irritable bowel syndrome) Depression Anxiety PCOD (polycystic ovarian disease) Autoimmune hemolytic anemia Retinal detachment History of open sigmoidectomy Family History Father Diabetes Mother Diabetes Brother Diabetes Social History Unable to assess alcohol history related to: Unable to respond and Unknown Alcohol intake: never Patient Tobacco Use Status: Never used Tobacco Physical Exam Vital Signs: Last Vital Signs Pulse 68 12/22/24 10:35 BP 132/88 12/22/24 10:35 Pulse Ox 96 12/22/24 10:35 Oxygen Delivery Method Room Air 12/22/24 10:35 BMI result Body Mass Index 28.0 Const General: cooperative, comfortable and no acute distress Nutritional Appearance: average body habitus Orientation/consciousness: patient oriented x3 Eyes General: appearance normal, both eyes and all related structures Pupils: Equal, round and reactive pupils present, Pupils normal by confrontation and Pupil accommodation reflex normal Neck Neck: Yes full ROM and Yes supple Resp Effort & Inspection: normal respiratory effort and able to speak in complete sentences Neuro Other: oral tics, coarse tongue tremors, is shaky, due to titration of Inspire and implant in HG nerve? Risperidall use? R. side facial asymmetry, r side is lower than left side of the face, denies stroke or bells palsy General: patient oriented x3, tone normal, moves all extremities, Normal light touch and pain sensation and CN's II-XI intact bilaterally Cranial nerves: Yes CN's II-XII intact bilaterally, Yes Facial sensation intact/muscles of mastication intact, Yes Equal, round and reactive pupils present, Yes Normal facial strength present, Yes Midline tongue present, Yes Ability to bilaterally rotate head present and Yes Ability to bilaterally elevate shoulders present Gait exam (Neuro): Normal gait present Motor exam (neuro): 5/5 motor strength present throughout and Normal motor muscle tone present throughout Coordination: aapssc-bc-sbuq test normal Psych Appearance: grossly normal Speech and movement: Normal speech and movement present Affect: No normal affect Thought process: Normal thought process present Orientation What is the (year) (season) (date) (day) (month)?: year, season, date, day and month Where are we (state) (county) (town or city) (hospital) (floor)?: state, county, town or city, hospital/clinic and floor Registration Name of 3 unrelated objects clearly and slowly, then ask patient to repeat all 3 of them. (1st repeat determines score. Make sure they can repeat all three): object 1, object 2 and object 3 Attention & Calculation (CHOOSE ONE) Spell WORLD backwards (DLROW): 5 letters Recall Ask patient to repeat the 3 items from question #3.: object 1, object 2 and object 3 Language Show patient a wristwatch & ask what it is. Repeat for pencil.: watch and pencil Ask the patient to repeat the phrase 'No ifs, ands, or buts' after you.: correct Ask the patient to 'take a piece of paper with their right hand' 'fold paper in half' 'place paper on floor': take paper in right hand, fold paper in half and place paper on floor Print the sentence 'CLOSE YOUR EYES' on a piece. If patient actually closes eyes then score.: followed written direction Give patient a blank piece of paper & ask to write a sentence. Score if it contains a noun & verb.: sentence contains subject and verb Score Score: 29 Results Reviewed Results Reviewed: Ct head- No evidence of acute intracranial hemorrhage or edematous territorial infarction. NCS/EMG carpal tunnels 2. Moderate underlying microangiopathy and generalized cerebral volume loss. IMPRESSION: Mild right median neuropathy across carpal tunnel. 08/2023 EEG r/o seizures IMPRESSION: This waking EEG is within normal limits. Assessment & Plan Assessment & Plan (1) Restless legs syndrome (RLS): Code(s): G25.81 - Restless legs syndrome Category: Medical (2) Cognitive disorder: Code(s): F09 - Unspecified mental disorder due to known physiological condition Category: Medical (3) Anxiety: Code(s): F41.9 - Anxiety disorder, unspecified Category: Medical (4) Bilateral finger numbness: Code(s): R20.0 - Anesthesia of skin Category: Medical (5) Cognitive decline: Code(s): R41.89 - Other symptoms and signs involving cognitive functions and awareness Category: Medical Plan ALETHA on Inspire [facility] sleep ctr dr. umanzor notes pending for titration is at optimal therapy now. Sleep Difficulties continue Lunesta 2mg PO daily and melatonin 3-6mg PO For Restless Leg Syndrome continue Pramiprexole 0.75mg PO at bedtime. Mood and Anxiety Continue Buspirone to 10mg BID, as she continues to have anxiety. Continue Citalopram 20mg PO Numbness and tingling in fingers bilateral hands NCS has SLE and Raynauds, Rheumatology referral is pending Sep 2024. Cognitive Difficulties STM, will monitor and MMSE was 29/30 today will f/u with MRI? (model of inspire implant not clear) Continue Therapy with Claudia Sal at [facility] continue to walk and socialize, staying active, doing puzzles. Oral tics? SE of medication? Risperidall? Inspire therapy adjustment? Lunesta? Orders: Orders MR head/brain wo/w con Today R41.89 - Other symptoms and signs involving cognitive functions and awareness Patient Instructions: Sleep Hygiene provided: set a scheduled bedtime and wake time to help regulate the circadian rhythm and balance the release of pituitary hormones. Sleep in a dark room, temperatures below 68 degrees, and no devices n bed. Limit caffeinated products 6 hours prior to bed, and limit fluids 2-4 hours prior to bed. Gentle night yoga, diffusing essential oils, and playing soft music can be relaxing. Coding Level of Care Code Est Pt Level 4 (03076) Complex EM visit Add On G2211 Diagnoses Restless legs syndrome (RLS) G25.81 Cognitive disorder F09 Anxiety F41.9 Bilateral finger numbness R20.0 Cognitive decline R41.89 Time Spent (min) 40 Comment Improving
[2024-12-22 10:35] VITALS: BP 132/88; PULSE 68; O2SAT 96; BMI 28.0
--- OUTSIDE RECORDS SUMMARY | 2024-12-22 12:07 | XMS_ITS | Continuity of Care Document ---
Author Organization [facility] [address] [facility] [address] [place] [address] Phone [phone] Problems Active Problems Provider Date Autoimmune hemolytic [...] Ons et: 05/01/2022 Systemic lupus erythematosus Sheree brousasrd M.D. Onset: 05/01/2022 Pulmonary embolism Sheree Dick [...] Social History Type Date Description Comments Sex Female Sex Unknown Lives With Spouse Lives With [...] Qnty Indications Order ing Provider Date Amlodipine Lnrzqcti8iy Tablets 1 by mouth every day 90tabs Sheree Dick M.D. 04/06/2024 Losartan Jxylizauo016pa Tablets 1 by mouth every day 90tabs [...] 30tabs Sheree Dick M.D. 03/06/2023 Albuterol Sulfate JZF302(90Base) mcg/Act Aerosol use 2 puffs every 4 to 6 hours as needed 6.700gm Sheree Dick M.D. 12/30/2022 Fluticasone Rvofxbxqyw44rov/Act Suspension Use 2 Sprays In Each Nostril Once Daily as Needed 48units Sheree Dick M.D. 07/10/2022 Citalopram Gsdlnsbtsgoo76di Tablets Take One And One-Half Tablets Daily 135tabs Sheree Dick M.D. 04/06/2022 Thspcvwzdfu9fe Tablets Unknown Buspirone PJA35og Tablets 1 by mouth twice a day Unknown Pantoprazole Coakte05ge Tablets DR 1 by mouth every day Unknown Dicyclomine CIP53gw Capsules prn Unknown Gpumtrublxfd42iyl Capsules take 2capsule by mouth daily Unknown Bymkanpssf810jc Capsules take 1 capsules by mouth every day at bedtime Unknown Vitamin X301duj (1000 Ut) Capsules 2 by mouth every day Sheree Dick M.D. Drhzcfz1fw Tablets Take 1 Tablet Twice A Day 180tadejah Dick M.D. Vhkkpvjdedsrkh34xf Tablets Take 1 Tablet Twice A Day as Directed 180tadejah Dick M.D. Nkkib635Nvab Solution Rec Every 3 months Sheree Dick M.D. Acetaminophen Extra Bdavtfod335vj Tablets take as directed when needed Unknown Lidocaine5% Patches apply for 12 hours, remove for 12 hours for back pain 30units Sheree Dick M.D. Betamethasone Dipropionate0.05% Cream Apply twice daily as needed Unknown Clindamycin Phosphate1% Lotion Apply To Back Once Daily In Am. Unknown Pramipexole Dihydrochloride0.5mg Tablets Take 1 Tablet By Mouth Every Evening For RLS 90tabs Sheree Dick M.D. Hydroxychloroquine Asfvfwf232gh Tablets Take 1 tablet twice daily 180tabs Sheree Dick M.D. Vital Signs Date Vital Result Comment 08/04/2024 [...] (SGPT) 23 IU/L 0-32 Lipid Panel 12/30/2022 [facility] Cholesterol, Total 239 mg/dL High (<200) Triglyceride 74 mg/dL (<150) HDL Chol 97 mg/dL (>39) LDL Cholesterol , Calculated 127 mg/dL (0-130) Non HDL Cholesterol (Calc) 142 mg/dL (<160) Hemoglobin A1c 12/30/2022 [facility] Hemoglobin A1c 5.5 % (4.0-5.6) 3 Basic Metabolic Panel 12/30/2022 [facility] Glucose 96 mg/dL (70-99) BUN 13 mg/dL (8-23) Creatinine 0.7 mg/dL (0.5-1.0) Sodium 136 mmol/L (133-145) Potassium 4.7 mmol/L (3.6-5.2) Chloride 101 mmol/L (98-107) Bicarbonate 24 mmol/L (22-29) Anion Gap 11 (4-17) Calcium 9.5 mg/dL (8.6-10.5) Estimated GFR Creatinine 99 ML/MIN/1. 73M2 4 Glucose Fingerstick 12/30/2022 Inhouse Glucose Fingerstick 94 High Fasting Canc Ant-125 10/23/2022 [facility] Canc Ant-125 7 U/ML (0-35) 5 Canc Ant-125 10/22/2022 [facility] Canc Ant-125 <pending> Glucose Fingerstick 08/28/2022 Inhouse Glucose Fingerstick 127 Glucose Fingerstick 05/01/2022 Inhouse Glucose Fingerstick 121 1 Prediabetes: 5.7 - 6 .4 Diabetes: >6.4 Glycemic control for adults with diabetes: <7.0 2 Vitamin D deficiency has been defined by the [place] of [employer] and an Endocrine Society practice guideline as a level of serum 25-OH vitamin D less than 20 ng/mL (1,2). The Endocrine Society went on to further define vitamin D insufficiency as a level between 21 and 29 ng/mL (2). 1. IOM ([place] of [employer]). 2010. Dietary reference intakes for calcium and D. [place]: The National Academies Press. 2. Delmy MF, Purvi NC, Meliton COLLIER, et al. Evaluation, treatment, and prevention of vitamin D deficiency: an Endocrine Society clinical practice guideline. JCEM. 2010; 96():1911-30. 3 MONITORING: In known diabetic patients, hemoglobin A1c targets should be discussed with health care provider. DIAGNOSTIC USE: The [place] Diabetes Association (ADA) and the World Health [...] therapy. Procedures Date Code Description Status 08/04/2024 21134 Collection Of Venous Blood B y Venipuncture Completed 12/11/2023 16785 Electrocardiogram Complete C ompleted 12/11/2023 71544 Collection Of Venous Blood B y Venipuncture Completed 12/30/2022 48199 Collection Of Venous Blood B y Venipuncture Completed 12/24/2021 15069 Electrocardiogram Complete C ompleted 10/09/2021 95767 Collection Of Capillary Bloo d Specimen Completed [...] Reason for Referral Status Appt Arik e [facility] Allergy Chronic cough/elevated I GE Closed [address] [place] [address] [phone] [facility] DYSPNEA, REDUCED DIFFUSION CAPACITY Closed 04/13/2024 [address] [place] [address] [phone] [facility] PULMONARY FUNCTION T EST EVALUATE DYSPNEA ON EXERTION R/O ASTHMA Closed 01/25/2024 [address] [place] [address] [phone] [facility] Lupus and Fibromyalgia Clos ed [address] [place] [address] [phone] [facility] Neurology & S lee Domi memory issues/ cognitive and impaired judgment Closed 07/23/2023 [address] [facility], [address] [place] [address] [phone] Donna Rodgers MD ELBOW TENDINITIS/LATERAL EPICONDYLITIS Closed [address] [place] [address] [phone] Adal Sexton MD COGNITIVE IMPAIRMENT Closed [address] [facility] [address] [place] [address] [phone] [facility] DECLAIMING MEMORY Closed 03/[address] [address] [phone]
== END 2024-12-22 11:54 | disposition home or self-care (01) ==
LOC: HO.HSMS 10:26
PROVIDERS: PCP Internal Medicine Endocrinology, Diabetes & Metabolism; Visit Provider Physician Assistant Medical
DX: G25.81 Restless legs syndrome (principal); F41.9 Anxiety disorder, unspecified; R20.0 Anesthesia of skin; R41.89 Other symptoms and signs involving cognitive functions and awareness
CPT/HCPCS: 99214

== ENCOUNTER 2025-01-21 12:41 | Outpatient (REF) | payer OTHER, SELFPAY ==
--- NOTE | ~2025-01-21 | MR_ITS ---
CLINICAL HISTORY: R41.89 - Other symptoms and signs involving cognitive functions and awar... --- Additional Notes or Special Instructions: Max scan time 30 mins due to implant. unable to give contrast MR brain without gadolinium Comparison: None provided Findings: No acute signal abnormalities noted on diffusion-weighted imaging. No acute intracranial fluid collection, hematoma or signal abnormality. Minimal chronic ischemic white matter disease noted. Midline structures are intact and within normal limits. Normal flow voids are noted within the vascular structures. Sinuses and mastoids are clear. Impression: No significant abnormalities. This document has been electronically signed by: Naldo Ruiz MD on 01/23/2025 20:01:57
== END 2025-01-21 12:42 | disposition home or self-care (01) ==
LOC: HO.MRI 12:41
PROVIDERS: PCP Internal Medicine Endocrinology, Diabetes & Metabolism; Visit Provider Physician Assistant Medical
DX: R41.89 Other symptoms and signs involving cognitive functions and awareness (principal)
CPT/HCPCS: 70551

== ENCOUNTER → 2025-01-21 12:55 | Outpatient (BNV) | payer OTHER, SELFPAY | PROVIDERS: PCP Internal Medicine Endocrinology, Diabetes & Metabolism; Visit Provider Radiology Diagnostic Radiology | DX: R41.89 Other symptoms and signs involving cognitive functions and awareness (principal) | CPT/HCPCS: 70551 ==

== ENCOUNTER 2025-02-21 11:10 | Outpatient (AMB) | payer OTHER, SELFPAY ==
--- NOTE | 2025-02-21 11:14 | A.OFFPSYCH_ITS ---
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 Allergies acetaminophen (From Percocet) Allergy (Mild, Verified 12/22/24 10:35) Migraine azathioprine (From Imuran) Allergy (Mild, Verified 12/22/24 10:35) Unknown celecoxib (From Celebrex) Allergy (Mild, Verified 12/22/24 10:35) Unknown latex Allergy (Mild, Verified 12/22/24 10:35) Unknown metformin Allergy (Mild, Verified 12/22/24 10:35) unknown oxycodone (From Percocet) Allergy (Mild, Verified 12/22/24 10:35) Migraine amoxicillin (From Augmentin) Allergy (Unknown, Verified 12/22/24 10:35) sdriffe Rash clavulanic acid (From Augmentin) Allergy (Unknown, Verified 12/22/24 10:35) sdriffe Rash Medication List - Last Reconciled 02/21/25 by Claudia Crook APRN amlodipine 5 mg PO DAILY apixaban (Eliquis) 5 mg PO BID buspirone 10 mg PO BID 3 months cholecalciferol (vitamin D3) 75 mcg PO DAILY citalopram (Celexa) 20 mg PO DAILY dicyclomine 10 mg PO BID PRN eszopiclone (Lunesta) 1 mg PO BEDTIME fluticasone propionate 50 mcg/actuation sprays intranasal gabapentin 100 mg PO BEDTIME hydroxychloroquine 200 mg PO BID lidocaine 5% 1 patch topical Q12H loratadine 10 mg PO DAILY losartan 100 mg PO DAILY melatonin 3 mg PO BEDTIME PRN onabotulinumtoxinA (Botox) IM ondansetron HCl 4 mg PO Q8H PRN pantoprazole 40 mg PO BID pramipexole 0.75 mg PO BEDTIME prucalopride 2 mg PO DAILY spironolactone 50 mg PO BID HPI- Psychiatric Chief Complaint: consult follow up HPI Narrative: pt reports improved mood, improved anxiety and improved sleep. She reports melatonin and lunesta 1mg has improved her sleep; she wakes feeling rested. She is less overwhelmed and less worried. she is tolerating medications without side effects. She takes celexa 20mg daily and buspar 10mg BID daily. She denies any side effects; she feels that the medication has brought her level of anxiety down to a very manageable level. She has recently started a mindfulness class. she denies any SI or HI. She is feeling stable and will retrun to neurology for follow up; Her PCP is unwilling at this time to take over her psychiatric medications: celexa, buspar, lunesta, and melatonin OTC. Past Psychiatric History: Two 24 stays at [facility] after overdose on pills 2013 Subjective Subjective Subjective Medication Compliance: Yes Side effects from medications: No Review of Systems Medical Review of Systems: unchanged Mental Status Exam Mental Status Exam Patient Appearance: Well Grooomed and Appropriate Patient Orientation: Person, Place, Time and Situation Level of Consciousness: Awake, Appropriate and Alert Patient Behavior: Appropriate and Cooperative Mood Description: Happy Affect Description: Happy Patient Cognition Impaired: No Ability to Follow Directions: Good Speech Pattern: Clear Memory Description: Intact Hallucinations: None Delusions: Not Present Thought Process: Intact and Goal Oriented Thought Content: positive for Intact and positive for Goal Oriented Judgement: Good Assessment and Plan Assessment & Plan (1) Insomnia due to mental condition: Status: Acute Code(s): F51.05 - Insomnia due to other mental disorder (2) Generalized anxiety disorder with panic attacks: Status: Acute Code(s): F41.1 - Generalized anxiety disorder; F41.0 - Panic disorder [episodic paroxysmal anxiety] (3) Major depressive disorder, recurrent episode, in partial remission with mixed features: Status: Acute Code(s): F33.41 - Major depressive disorder, recurrent, in partial remission Plan continue celexa, buspar and lunesta pt will follow up with neurology and may retrun in future if status changes. Medications: Refilled buspirone 10 mg PO BID 180 tabs 2RF 3 months citalopram (Celexa) 20 mg PO DAILY 90 tabs 2RF eszopiclone (Lunesta) 1 mg PO BEDTIME 90 tabs 2RF Counseling and coordination of Care Pt. Self Management counseling: Maintenance-social rhythm, Mod caffeine/ETOH intake, Nutrition education and improvement and General coping skills Medication management counseling: Effectiveness, Side effects, Dosing range, Duration, Drug interaction and Adherence Diagnosis and Prognosis Counseling: Accuracy of diagnosis, Prognosis over time, Impact of diagnosis on life functions, Problematic behaviors secondary to diagnosis and Adequacy of current interventions Details: I spent 30 minutes reviewing the record, seeing the patient and documenting in the medical record. Counseling provided to the patient/caregiver as outlined below. Addressed patient/caregiver concerns regarding current medication regime including effective adherence. Addressed patient/caregiver concerns regarding diagnosis and prognosis including accuracy of diagnosis, prognosis over time, impact of diagnosis. Addressed patient/caregiver concerns regarding impact of recent stressors. [facility] Medical History Carpal tunnel syndrome of right wrist Restless legs syndrome (RLS) Numbness and tingling Cognitive disorder Prediabetes HTN (hypertension) Gastritis Hereditary spherocytosis Osteopenia GERD (gastroesophageal reflux disease) Small fiber neuropathy DVT (deep vein thrombosis) in Pulmonary emboli SLE (systemic lupus erythematosus related syndrome) Kidney stone Fibromyalgia SVT (supraventricular tachycardia) PVC (premature ventricular contraction) IBS (irritable bowel syndrome) Depression Anxiety PCOD (polycystic ovarian disease) Autoimmune hemolytic anemia Retinal detachment History of open sigmoidectomy Family History Father Diabetes Mother Diabetes Brother Diabetes Social History Unable to assess alcohol history related to: Unable to respond and Unknown Alcohol intake: never Patient Tobacco Use Status: Never used Tobacco Social History: lives with of 35 yrs. has 3 adult children and 5 grandchildren Substance History: none Trauma History: yes Coding Level of Care Code Est Pt Level 4 (21376) Diagnoses Insomnia due to mental condition F51.05 Generalized anxiety disorder with panic attacks F41.1; F41.0 Major depressive disorder, recurrent episode, in partial remission with mixed features F33.41
--- OUTSIDE RECORDS SUMMARY | 2025-02-21 12:17 | XMS_ITS | Encounter Summary ---
Author Organization [facility] Address [address] [place] [address] Phone Care Team Providers Care Professional Poker Player Name Role Phone Sheree Dick MD Primary Care Prov ider Reason for Referral * Physical Therapy (Routine) - Closed Specialty Diagnoses / Procedures Referred By Brandon rosario Referred To Contact Physical Therapy Hetal Nunez, TUSHAR [address] [facility] [address] [place] [address] Phone: tel: [address] [address] Phone: tel: Referral ID Status Reason Start Date Expiration Date Visits Re quested Visits Authorized [id number] Closed 03/30/2020 03/30/2021 1 1 Encounter Details Date Type Department Care Team (Late st Contact Info) Description 03/30/2020 Transcribe Orders [facility] [address] [place] [id number] Hetal Nunez APRN [address] [place] [address] Social History Tobacco Use Types Packs/Day Years Used Date Smoking Tobacco: Never Comments Unknown Sex and Gender Information Value Date Recorded Sex Assigned at Not on file Legal Sex Female 4:07 PM EST Gender Identity Not on file Sexual Orientation Not on file documented as of this encounter Plan of Treatment Scheduled Referrals Name Type Priority Associated Diagnoses Order Schedule Ambulatory referral to [facility] Physical Therapy Outpatient Referral Routine Ordered: 03/30/2020 documented as of this encounter Visit Diagnoses Not on filedocumented in this encounter Care Teams Professional Poker Player Relationship Specialty Start Date End Date Sheree Dick MD [address] [place] [address] [place] [address] PCP - General 11/16/14 documented as of this encounter Additional Source Comments The information contained in this document represents components of the legal health record. It is not the complete legal health record.[facility]
--- OUTSIDE RECORDS SUMMARY | 2025-02-21 12:18 | XMS_ITS | Continuity of Care Document ---
Author Organization [facility] [address] [facility] [address] [place] [address] Phone [phone] Problems Active Problems Provider Date Autoimmune hemolytic [...] Use Start: Unknown Patient has never smoked Allergies and adverse reactions Active Allergies Criticality Reaction Severity Comments Date Celebrex Unable to assess criticality 05/01/2022 Imuran Unable to assess criticality 05/01/2022 Metformin Unable to assess criticality 05/01/2022 Percocet Unable to assess criticality 05/01/2022 Latex Unable to assess criticality 05/01/2022 Amoxicillin / Clavulanate Unable to assess criticality 08/04/2024 Medications Active Medications SIG Qnty Indications Order ing Provider Date Amlodipine Nagwakkc7jh Tablets 1 by mouth every day 90tabs Sheree Dick M.D. 04/06/2024 Losartan Xpjalnxao153sr Tablets 1 by mouth every day 90tabs Sheree Dick M.D. 12/11/2023 Onetouch VerioStrips use 1 strip to check glucose once daily 100units R73.02 Sheree Dick M.D. 12/11/2023 Onetouch Delica Plus Lancets Fine 30GPlus 30G Misc use 1 to skin once daily 100units R73.02 Sheree Dick M.D. 12/11/2023 Ondansetron HCL4mg Tablets take 1 tablet by mouth every 8 hours as needed 30tadejah Dick M.D. 03/06/2023 Albuterol Sulfate JDX235(90Base) mcg/Act Aerosol use 2 puffs every 4 to 6 hours as needed 6.700gm Sheree Dick M.D. 12/30/2022 Fluticasone Qodqlahvyi03spe/Act Suspension Use 2 Sprays In Each Nostril Once Daily as Needed 48units Sheree Dick M.D. 07/10/2022 Citalopram Urdcooelltrc18ba Tablets Take One And One-Half Tablets Daily 135tabs Sheree Dick M.D. 04/06/2022 Zyrtec Ekxbvfl81pg Capsules take 1 capsule daily as needed Unknown Prucalopride Wgmqtxsec2gu Tablets 1 qd Unknown Tkeqxdfxrhq3ys Tablets 1 qhs Unknown Buspirone RAA34wd Tablets 1 by mouth twice a day Unknown Pantoprazole Yldmpz58dz Tablets DR 1 by mouth every day Unknown Dicyclomine BAD73hr Capsules prn Unknown Frmomwqacq409ab Capsules take 1 capsules by mouth every day at bedtime Unknown Vitamin G766eoo (1000 Ut) Capsules 2 by mouth every day Sheree Dick M.D. Rdwdvkw8sk Tablets Take 1 Tablet Twice A Day 180tadejah Dick M.D. Ofwvpqgzeyyrjl92jy Tablets Take 1 Tablet Twice A Day as Directed 180tadejah Dick M.D. Pqxev532Ptth Solution Rec Every 3 months Sheree Dick M.D. Acetaminophen Extra Dptlyqmx077id Tablets take as directed when needed Unknown Lidocaine5% Patches apply for 12 hours, remove for 12 hours for back pain 30units Sheree Dick M.D. Betamethasone Dipropionate0.05% Cream Apply twice daily as needed Unknown Clindamycin Phosphate1% Lotion Apply To Back Once Daily In Am. Unknown Pramipexole Dihydrochloride0.5mg Tablets Take 1 Tablet By Mouth Every Evening For RLS 90tabs Sheree Dick M.D. Hydroxychloroquine Vyrejxh322ut Tablets Take 1 tablet twice daily 180tabs Sheree Dick M.D. Vital Signs Date Vital Result Comment 01/06/2025 1:22pm BP Systolic 110 mmHg BP Diastolic 66 mmHg Heart Rate 73 /min Height 63 inches 5'3 Weight 160.00 lb BMI (Body Mass Index) 28.3 kg/m2 Results Test Acquired Date Facility Test Result H/L Range Note Lipid Panel 01/07/2025 [facility] Cholesterol, Total 220 mg/dL High 100-199 Triglycerides 88 mg/dL 0-149 HDL Cholesterol 77 mg/dL >39 VLDL Cholestero l [facility] 15 mg/dL 5-40 LDL Chol Calc ([facility]) 128 mg/dL High 0-99 LDL Calc Comment: TNP Hemoglobin A1c 01/07/2025 [facility] Hemoglobin A1c 5.3 % 4.8-5.6 1 CBC With Differential/Pl atelet 01/07/2025 [facility] WBC 7.6 x10E3/uL 3.4-10.8 RBC 4.35 x10E6/uL 3.77-5.28 Hemoglobin 14.0 g/dL 11.1-15.9 Hematocrit 41.3 % 34.0-46.6 MCV 95 fL 79-97 MCH 32.2 pg 26.6-33.0 MCHC 33.9 g/dL 31.5-35.7 RDW 12.4 % 11.7-15.4 Platelets 223 x10E3/uL 150-450 Neutrophils 49 % Not Estab. Lymphs 38 % Not Estab. Monocytes 8 % Not Estab. Eos 4 % Not Estab. Basos 1 % Not Estab. Immature Cells TNP Neutrophils (Absolute) 3.7 x10E3/uL 1.4-7.0 Lymphs (Absolute) 2.9 x10E3/uL 0.7-3.1 Monocytes(Absol u te) 0.6 x10E3/uL 0.1-0.9 Eos (Absolute) 0.3 x10E3/uL 0.0-0.4 Baso (Absolute) 0.1 x10E3/uL 0.0-0.2 Immature Granulocytes 0 % Not Estab. Immature Grans (Abs) 0.0 x10E3/uL 0.0-0.1 NRBC TNP Hematology Comments: TNP Comp. Metabolic Panel (14) 01/07/2025 [facility] Glucose 101 mg/dL High 70-99 BUN 17 mg/dL 8-27 Creatinine 0.72 mg/dL 0.57-1.00 eGFR 94 mL/min/1. 73 >59 BUN/Creatinine Ratio 24 - Sodium 140 mmol/L 134-144 Potassium 4.4 mmol/L 3.5-5.2 Chloride 106 mmol/L 96-106 Carbon Dioxide, Total 21 mmol/L 20-29 Calcium 9.1 mg/dL 8.7-10.3 Protein, Total 7.0 g/dL 6.0-8.5 Albumin 4.1 g/dL 3.9-4.9 Globulin, Total 2.9 g/dL 1.5-4.5 Bilirubin, Total 0.6 mg/dL 0.0-1 .2 Alkaline Phosphatase 80 IU/L 44-121 Ast (Sgot) 20 IU/L 0-40 Alt (SGPT) 20 IU/L 0-32 Glucose Fingerstick 01/06/2025 Inhouse Glucose Fingerstick 111 Comp. Metabolic Panel (14) 08/04/2024 [facility] Glucose 79 mg/dL 70-99 BUN 14 mg/dL 8-27 Creatinine 0.79 mg/dL 0.57-1.00 eGFR 85 mL/min/1. 73 >59 BUN/Creatinine Ratio 18 - Sodium 139 mmol/L 134-144 Potassium 4.2 mmol/L 3.5-5.2 Chloride 100 mmol/L 96-106 Carbon Dioxide, Total 20 mmol/L 20-29 Calcium 9.5 mg/dL 8.7-10.3 Protein, Total 7.6 g/dL 6.0-8.5 Albumin 4.2 g/dL 3.9-4.9 Globulin, Total 3.4 g/dL 1.5-4.5 Bilirubin, Total 0.5 mg/dL 0.0-1 .2 Alkaline Phosphatase 99 IU/L 44-121 Ast (Sgot) 19 IU/L 0-40 Alt (SGPT) 19 IU/L 0-32 Hemoglobin A1c 08/04/2024 [facility] Hemoglobin A1c 5.6 % 4.8-5.6 2 CBC With Differential/Pl atelet 08/04/2024 [facility] WBC [...] Glucose Fingerstick 08/04/2024 Inhouse Glucose Fingerstick 103 Glucose Fingerstick 04/06/2024 Inhouse Glucose Fingerstick 135 CBC With Differential/Pl atelet 12/11/2023 [facility] WBC [...] NRBC TNP Hematology Comments: TNP Glucose Fingerstick 12/11/2023 Inhouse Glucose Fingerstick 271 Vitamin D, 25-Hydroxy 12/11/2023 [facility] Vitamin D, 25-Hydroxy 24.5 ng/mL Low 30.0-100.0 3 TSH Rfx on Abnormal to Free T4 12/11/2023 [facility] TSH Rfx on Abnormal to Free T4 1.540 uIU/mL 0.450-4.50 0 Comp. Metabolic Panel (14) 12/11/2023 [facility] Glucose [...] (SGPT) 23 IU/L 0-32 Lipid Panel 12/30/2022 [facility] Cholesterol, Total 239 mg/dL High (<200) Triglyceride 74 mg/dL (<150) HDL Chol 97 mg/dL (>39) LDL Cholesterol , Calculated 127 mg/dL (0-130) Non HDL Cholesterol (Calc) 142 mg/dL (<160) Hemoglobin A1c 12/30/2022 [facility] Hemoglobin A1c 5.5 % (4.0-5.6) 4 Basic Metabolic Panel 12/30/2022 [facility] Glucose 96 mg/dL (70-99) BUN 13 mg/dL (8-23) Creatinine 0.7 mg/dL (0.5-1.0) Sodium 136 mmol/L (133-145) Potassium 4.7 mmol/L (3.6-5.2) Chloride 101 mmol/L (98-107) Bicarbonate 24 mmol/L (22-29) Anion Gap 11 (4-17) Calcium 9.5 mg/dL (8.6-10.5) Estimated GFR Creatinine 99 ML/MIN/1. 73M2 5 Glucose Fingerstick 12/30/2022 Inhouse Glucose Fingerstick 94 High Fasting Canc Ant-125 10/23/2022 [facility] Canc Ant-125 7 U/ML (0-35) 6 Canc Ant-125 10/22/2022 [facility] Canc Ant-125 <pending> Glucose Fingerstick 08/28/2022 Inhouse Glucose Fingerstick 127 Glucose Fingerstick 05/01/2022 Inhouse Glucose Fingerstick 121 1 Prediabetes: 5.7 - 6 .4 Diabetes: >6.4 Glycemic control for adults with diabetes: <7.0 2 Prediabetes: 5.7 - 6 .4 Diabetes: >6.4 Glycemic control for adults with diabetes: <7.0 3 Vitamin D deficiency has been defined by the [place] of Medicine and an Endocrine Society practice guideline as a level of serum 25-OH vitamin D less than 20 ng/mL (1,2). The Endocrine Society went on to further define vitamin D insufficiency as a level between 21 and 29 ng/mL (2). 1. IOM ([place] of Medicine). 2010. Dietary reference intakes for calcium and D. [place]: The National Academies Press. 2. Delmy MF, Purvi NC, Meliton COLLIER, et al. Evaluation, treatment, and prevention of vitamin D deficiency: an Endocrine Society clinical practice guideline. JCEM. 2010; 96(7):1911-30. 4 MONITORING: In known diabetic patients, hemoglobin A1c targets should be discussed with health care provider. DIAGNOSTIC USE: The [place] Diabetes Association (ADA) and the World Health [...] Research and Education Volume 43, Supplement 1 5 Creatinine based est imated glomerular filtration (eGFR) in adults is calculated using the National Kidney Foundation recommended 2020 CKD-EPI equation. Estimates GFR from serum creatinine, age and sex. 6 Testing performed us ing the [employer] Electrochemilluminescence CA125 assay. Values obtained with other assay methods or kits cannot be used interchangeably. Use results with caution when patient is on monoclonal antibody therapy. Procedures Date Code Description Status 08/04/2024 05355 Collection Of Venous Blood B y Venipuncture Completed 12/11/2023 20502 Electrocardiogram Complete C ompleted 12/11/2023 82591 Collection Of Venous Blood B y Venipuncture Completed 12/30/2022 47329 Collection Of Venous Blood B y Venipuncture Completed 12/24/2021 26147 Electrocardiogram Complete C ompleted 10/09/2021 35331 Collection Of Capillary Bloo d Specimen Completed Medical Devices Description No Information Available Encounters Type Date Location Provider Dx Diagnosis Office Visit 01/06/2025 1:15p Main Office Sheree Fischer M.D. R73.03 Prediabetes M32.9 Systemic lupus eryth ematosus, unspecified F41.1 Generalized anxiety disorder J30.9 Allergic rhinitis, u nspecified I10 Essential (primary) hypertension G31.84 Mild cognitive impai rment of uncertain or unknown etiology Z86.718 Personal history of other venous thrombosis and embolism G47.33 Obstructive sleep ap jimmie (adult) (pediatric) E78.00 Pure hypercholestero lemia, unspecified K21.00 Gastro-esophageal re flux dis with esophagitis, without bleed K58.1 Irritable bowel synd arsalan with constipation Assessments Date Code Description Provider 01/06/2025 R73.03 Prediabetes Sheree Linares M.D. 01/06/2025 M32.9 Systemic lupus erythematosus NOS Sheree Dick M.D. 01/06/2025 F41.1 Generalized anxiety disorder Sheree Dick M.D. 01/06/2025 J30.9 Allergic rhinitis, unspecifi ed Sheree Dick M.D. 01/06/2025 I10 Essential (primary) hyperten julienne Sheree Dick M.D. 01/06/2025 G31.84 Mild cognitive disorder NOS Sheree Dick M.D. 01/06/2025 Z86.718 Personal history of other venous thrombosis and embolism Sheree Dick M.D. 01/06/2025 G47.33 Obstructive slee p apnea (adult) (pediatric) Sheree Dick M.D. 01/06/2025 E78.00 Pure hypercholes terolemia, unspecified Sheree Dick M.D. 01/06/2025 K21.00 Gastro-esophagea l reflux disease with esophagitis, without bleeding Sheree Dick M.D. 01/06/2025 K58.1 Irritable bowel syndrome with constipation Sheree Dick M.D. Plan of Treatment Future Appointment(s):* 05/08/2025 2:30 pm - Sheree Dick M.D. at Main Office 01/06/2025 - Sheree Dick M.D.* R73.03 Prediabetes * M32.9 Systemic lupus erythematosus NOS * F41.1 Generalized anxiety disorder * J30.9 Allergic rhinitis, unspecified * I10 Essential (primary) hypertension * G31.84 Mild cognitive disorder NOS * Z86.718 Personal history of other venous thrombosis and embolism * G47.33 Obstructive sleep apnea (adult) (pediatric) * E78.00 Pure hypercholesterolemia, unspecified * K21.00 Gastro-esophageal reflux disease with esophagitis, without bleeding * K58.1 Irritable bowel syndrome with constipation Functional Status Description No Information Available Mental Status Description No Information Available Referrals Refer to Dr Reason for Referral Status Appt Arik e [facility] Allergy Chronic cough/elevated I GE Closed [address] [place] [address] [phone] [facility] DYSPNEA, REDUCED DIFFUSION CAPACITY Closed 04/13/2024 [address] [place] [address] [phone] [facility] PULMONARY FUNCTION T EST EVALUATE DYSPNEA ON EXERTION R/O ASTHMA Closed 01/25/2024 [address] [place] [address] [phone] [facility] Lupus and Fibromyalgia Clos ed [address] [place] [address] [phone] [facility] Dom[facility] memory issues/ cognitive and impaired judgment Closed 07/23/2023 [address] [facility], [address] [place] [address] [phone] Donna Rodgers MD ELBOW TENDINITIS/LATERAL EPICONDYLITIS Closed [address] [facility] [address] [place] [address] [phone] Adal Sexton MD COGNITIVE IMPAIRMENT Closed [address] [facility] [address] [place] [address] [phone] [facility] DECLAIMING MEMORY Closed 03/[address] [address] [phone]
--- OUTSIDE RECORDS SUMMARY | 2025-02-21 12:18 | XMS_ITS | Clinical Summary ---
Author Organization [facility] Address [address] [place] [address] Phone Care Team Providers Care Lumber Tallier Name Role Phone Sheree Dick MD Primary [...] a day for 10 days. 40 each 10/31/2024 Active Active Problems No known active problems Encounters Date Type Department Care Team Description 12/11/2024 7:06 AM EDT - 12/11/2024 10:32 AM EDT Emergency [facility] Emergency [address] [place] [address] Gastroenteritis (Primary Dx); Chest pain, unspecified type Discharge Disposition: Home or Self Care from Last 3 Months Medical History Medical History Date Comments Hypertension Lupus (systemic lupus erythematosus) (CMS/HCC V2 4, CMS/HCC V28) Social History Tobacco Use Types Packs/Day Years Used Date Smoking Tobacco: Never Smokeless Tobacco: Never Tobacco Cessation:Counseling Given: Not Answered Alcohol Use Standard Drinks/Week Comments Yes 0 (1 standard drink = 0.6 oz pur e alcohol) socially Comments Unknown Sex and Gender Information Value Date Recorded Sex Assigned at Female 10/31/2024 12:55 PM EDT Legal Sex Female 12:45 PM EST Gender Identity Female 10/31/2024 12:55 PM EDT Sexual Orientation Straight 10/31/2024 12 :55 PM EDT Obstetrics History Last Filed Vital Signs Vital Sign Reading Time Taken Comments Blood Pressure 133/87 12/11/2024 9:25 AM EDT Pulse 67 12/11/2024 9:25 AM EDT Temperature 36.5 C (97.7 F) 12/11/2024 9:25 AM EDT Respiratory Rate 16 12/11/2024 9:25 AM EDT Oxygen Saturation 95% 12/11/2024 9:25 AM EDT Inhaled Oxygen Concentration - - Weight 70.8 kg (156 lb) 12/11/2024 6:12 AM EDT Height 160 cm (5' 3 ) 12/11/2024 6:12 AM EDT Body Mass Index 27.63 12/11/2024 6:12 AM EDT Plan of Treatment Health Maintenance Due Date Last Done Comments Breast Cancer Screening 1962 DTaP,Tdap,and Td Vaccines (1 - Tdap) 1981 Cervical Cancer Screening: Pap Smear 1983 Pneumococcal Vaccine: 50+ Years (1 of 1 - PCV) 01/13/2012 Cholesterol Screening (Lipid Panel) 08/11/2023 Colorectal Cancer Screening: Colonoscopy 08/11/2023 HIV Screening 08/11/2023 Hepatitis C Screening 08/11/2023 Social Influencers of Health Screening 08/11/2023 COVID-19 Vaccine ( season) 2024 06/09/2023, 07/16/2022, 01/02/2022, Additional history exists Depression Screening 07/13/2024 Influenza Vaccine (#1) 2025 , 05/09/2020, 05/03/2014 Hypertension/CHF/CAD Annual BMP Blood Test 12/11/2025 12/11/2024, 10/31/2024, 04/30/2023 RSV Immunization Adult Patients (1 - 1-dose [...] Procedure Name Priority Date/Time Associated Diagnosis Comments ECG ANNOTATED 12/13/2024 CT ANGIO CHEST WO AND/OR W CONTRAST STAT 12/11/2024 8:34 AM EDT Chest pain, unspecified type CT ABDOMEN PELVIS W CONTRAST STAT 12/11/2024 8:34 AM EDT ECG 12-LEAD Routine 12/11/2024 8:09 AM EDT TROPONIN I HIGH SENSITIVITY STAT 12/11/2024 7:58 AM EDT [id number], RSV, FLU A AND B QUALITATIVE RT-PCR, INTERNAL LAB STAT 12/11/2024 7:53 AM EDT XR CHEST 2 VIEWS STAT 12/11/2024 7:23 AM EDT CBC WITH AUTO DIFFERENTIAL STAT 12/11/2024 6:43 AM EDT B-TYPE NATRIURETIC PEPTIDE STAT 12/11/2024 6:43 AM EDT MAGNESIUM STAT 12/11/2024 6:43 AM EDT LIPASE STAT 12/11/2024 6:43 AM EDT COMPREHENSIVE METABOLIC PANEL STAT 12/11/2024 6:43 AM EDT CBC AND DIFFERENTIAL STAT 12/11/2024 6:43 AM EDT TROPONIN I HIGH SENSITIVITY STAT 12/11/2024 6:43 AM EDT ECG 12-LEAD STAT 12/11/2024 6:09 AM EDT from Last 3 Months Results * ECG-Annotated (12/13/2024) us Provider Onbase MD ECG ORDERABLES Final Result * CT Abdomen Pelvis w Contrast (12/11/2024 8:34 AM EDT) Anatomical Region Laterality Modality Body Computed Tomogra phy 12/11/2024 8:47 AM EDT Impressions 12/11/2024 8:50 AM EDT NO ACUTE INFECTIOUS OR INFLAMMATORY PROCESS EVIDENT IN THE ABDOMEN OR PELVIS. INCIDENTAL FINDINGS ABOVE.. -------- FINAL REPORT -------- Dictated By: Schuyler Silverio Dictated Date: 12/11/2024 08:47 ET Assigned Physician: Schuyler Silverio Reviewed and Electronically Signed By: Schuyler Silverio Signed Date: 12/11/2024 08:50 ET Workstation ID: [id number] Transcribed By: Self Edit Transcribed Date: 12/11/2024 08:47 ET Narrative 12/11/2024 8:50 AM EDT PROCEDURE: CT ABDOMEN/PELVIS WITH CONTRAST INDICATION: diffuse abd pain worse in epigastrium, N/V/D, fever TECHNIQUE: CT of the abdomen and pelvis following the intravenous administration of 90cc Isovue 370. Multiplanar reformats. The examination was performed utilizing dose reduction techniques. Total DLP 1024 COMPARISON: No priors available. FINDINGS: LOWER THORAX: Lung bases are clear. HEPATOBILIARY: No focal liver lesions. No cholelithiasis or biliary duct dilatation. SPLEEN: Splenectomy. PANCREAS: No focal mass or ductal dilatation. ADRENALS: No nodules. KIDNEYS/URETERS: No hydronephrosis, stones, or solid mass. PELVIC ORGANS/BLADDER: Unremarkable. PERITONEUM / RETROPERITONEUM: No ascites or free air. No retroperitoneal lymphadenopathy. VESSELS: Scattered atherosclerotic calcifications throughout the aorta and its major branches. No aneurysm. GI TRACT: Diverticulosis without evidence for acute diverticulitis. Thickening of the antrum nonspecific but can be seen in setting of gastritis. Fluid in the distal small bowel and cecum is nonspecific. Gastroenteritis could be considered in the proper clinical setting. BONES AND SOFT TISSUES: Degenerative changes. No acute osseous abnormality. Tiny fat-containing umbilical hernia. Procedure Note Schuyler Silverio MD - 12/11/2024 PROCEDURE: CT ABDOMEN/PELVIS WITH CONTRAST INDICATION: diffuse abd pain worse in epigastrium, N/V/D, fever TECHNIQUE: CT of the abdomen and pelvis following the intravenousadministration of 90cc Isovue 370. Multiplanar reformats. The examinationwas performed utilizing dose reduction techniques. Total DLP 1024 COMPARISON: No priors available. FINDINGS: LOWER THORAX: Lung bases are clear. HEPATOBILIARY: No focal liver lesions. No cholelithiasis or biliary ductdilatation. SPLEEN: Splenectomy. PANCREAS: No focal mass or ductal dilatation. ADRENALS: No nodules. KIDNEYS/URETERS: No hydronephrosis, stones, or solid mass. PELVIC ORGANS/BLADDER: Unremarkable. PERITONEUM / RETROPERITONEUM: No ascites or free air. No retroperitoneallymphadenopathy. VESSELS: Scattered atherosclerotic calcifications throughout the aorta andits major branches. No aneurysm. GI TRACT: Diverticulosis without evidence for acute diverticulitis.Thickening of the antrum nonspecific but can be seen in setting ofgastritis. Fluid in the distal small bowel and cecum is nonspecific.Gastroenteritis could be considered in the proper clinical setting. BONES AND SOFT TISSUES: Degenerative changes. No acute osseousabnormality. Tiny fat-containing umbilical hernia. IMPRESSION: NO ACUTE INFECTIOUS OR INFLAMMATORY PROCESS EVIDENT IN THE ABDOMEN ORPELVIS. INCIDENTAL FINDINGS ABOVE.. -------- FINAL REPORT -------- Dictated By: Schuyler Silverio Dictated Date: 12/11/2024 08:47 ET Assigned Physician: Schuyler Silverio Reviewed and Electronically Signed By: Schuyler Silverio Signed Date: 12/11/2024 08:50 ET Workstation ID: [id number] Transcribed By: Self Edit Transcribed Date: 12/11/2024 08:47 ET Fior HAGEN IMMing CT PROCEDURES Final Result * CT Angio Chest wo and/or w Contrast (12/11/2024 8:34 AM EDT) Anatomical Region Laterality Modality Body Computed Tomogra phy 12/11/2024 8:44 AM EDT Impressions 12/11/2024 8:46 AM EDT No acute cardiopulmonary disease. -------- FINAL REPORT -------- Dictated By: Schuyler Silverio Dictated Date: 12/11/2024 08:44 ET Assigned Physician: Schuyler Silverio Reviewed and Electronically Signed By: Schuyler Silverio Signed Date: 12/11/2024 08:46 ET Workstation ID: [id number] Transcribed By: Self Edit Transcribed Date: 12/11/2024 08:44 ET Narrative 12/11/2024 8:46 AM EDT PROCEDURE: CT ANGIO CHEST INDICATION: CP, SOB, hx PE, recent travel COMPARISON: None. TECHNIQUE: CT pulmonary angiogram performed following uneventful IV administration of ISOVUE contrast material with bolus timing technique from the thoracic inlet through the lung bases. 3-D multiplanar reformations were obtained by the technologist on an independent workstation. [employer] VCT dose reduction utilizing iterative reconstruction. Total exam DLP 1020 (mGy-cm) FINDINGS: There is no CT evidence of acute pulmonary embolism to the lobar level. Evaluation of the segmental and subsegmental pulmonary arteries is limited due to motion artifact and small peripheral pulmonary emboli cannot be excluded. The heart is within normal limits in size. There is no pericardial effusion. The thoracic aorta is normal in caliber. There is no evidence for mediastinal or hilar lymphadenopathy. No consolidation. There are no pleural effusions. The visualized portion of the upper abdomen demonstrates no acute findings however technique was not optimized for evaluation for more subtle lesions. Right chest wall stimulator pack. Splenectomy. No acute fracture. Procedure Note Schuyler Silverio MD - 12/11/2024 PROCEDURE: CT ANGIO CHEST INDICATION: CP, SOB, hx PE, recent travel COMPARISON: None. TECHNIQUE: CT pulmonary angiogram performed following uneventful IVadministration of ISOVUE contrast material with bolus timing techniquefrom the thoracic inlet through the lung bases. 3-D multiplanar reformations were obtained by the technologist on anindependent workstation. [employer] VCT dose reduction utilizing iterative reconstruction. Total exam DLP 1020 (mGy-cm) FINDINGS: There is no CT evidence of acute pulmonary embolism to the lobar level.Evaluation of the segmental and subsegmental pulmonary arteries is limiteddue to motion artifact and small peripheral pulmonary emboli cannot beexcluded. The heart is within normal limits in size. There is no pericardialeffusion. The thoracic aorta is normal in caliber. There is no evidence for mediastinal or hilar lymphadenopathy. No consolidation. There are no pleural effusions. The visualized portion of the upper abdomen demonstrates no acute findingshowever technique was not optimized for evaluation for more subtlelesions. Right chest wall stimulator pack. Splenectomy. No acute fracture. IMPRESSION: No acute cardiopulmonary disease. -------- FINAL REPORT -------- Dictated By: Schuyler Silverio Dictated Date: 12/11/2024 08:44 ET Assigned Physician: Schuyler Silverio Reviewed and Electronically Signed By: Schuyler Silverio Signed Date: 12/11/2024 08:46 ET Workstation ID: [id number] Transcribed By: Self Edit Transcribed Date: 12/11/2024 08:44 ET [address] PROCEDURES Final Result * ECG 12 lead (12/11/2024 8:09 AM EDT) Only the most recent of2 resultswithin the time period is included. Ventricular Rate ECG 71 BPM GEMUSE Atrial Rate 71 BPM GEMUSE P-R Interval 168 ms GEMUSE QRS Duration 90 ms GEMUSE Q-T Interval 426 ms GEMUSE QTc 462 ms GEMUSE P Wave Durant 18 degrees GEMUSE T Durant 7 degrees GEMUSE ECG Interpretation Normal sinus rhythm Normal ECG When compared with ECG of 11-DEC-2024 06:09, (unconfirmed) No significant change was found Confirmed by СЕРГЕЙ GORDILLO ([id number]) on 12/13/2024 9:14:44 AM GEMUSE 12/11/2024 8:09 AM EDT 12/13/2024 9:14 AM EDT Fior HAGEN ECG ORDERABLES Final Result Performing Organization Address [facility] de Phone Number GEMUSE * Troponin I high sensitivity (12/11/2024 7:58 AM EDT) Only the most recent of2 resultswithin the time period is included. [facility] High Sensitivity Troponin I 3 <=54 ng/L LAB CHEMISTRY METHOD 12/11/2024 9:14 AM EDT [facility] Blood Venous blood specimen / Unknown Venipuncture / Unknown 12/11/2024 7:58 AM EDT 12/11/2024 8:44 AM EDT Narrative [facility] - 12/11/2024 9:14 AM EDT High levels of biotin in samples may falsely decrease hsTroponin values. Use caution when interpreting hsTroponin results in patients taking biotin who exhibit renal impairment (eGFR <60) or in patients taking more than 20 mg/day of biotin. Patrice Headley MD LAB BLOOD ORDERABLES Final Resu lt Performing Organization Address [facility] Co de Phone Number [facility] [address] [place] [address], * [id number], RSV, Influenza A and B qualitative RT-PCR (12/11/2024 7:53 AM EDT) [facility] Influenza A PCR Not Detected Not Detected LAB MICROBIOLOGY METHOD 12/11/2024 9:26 AM EDT [facility] Influenza B PCR Not Detected Not Detected LAB MICROBIOLOGY METHOD 12/11/2024 9:26 AM EDT [facility] RSV PCR Not Detected Not Detected LAB MICROBIOLOGY METHOD 12/11/2024 9:26 AM EDT [facility] SARS COV-2 Not Detected Not Detected LAB MICROBIOLOGY METHOD 12/11/2024 9:26 AM EDT [facility] Swab Both anterior nares / Unknown Non-blood Collection / Unknown 12/11/2024 7:53 AM EDT 12/11/2024 8:44 AM EDT Narrative [facility] - 12/11/2024 9:26 AM EDT Disclaimer: Testing was performed using the [employer] GeneXpert Xpress SARS-CoV-2 _Flu_RSV PLUS PCR assay. The manner in which this information is used to guide patient care is the responsibility of the healthcare provider. Results should be correlated with the clinical history, epidemiological data, and other data available to the clinician evaluating the patient. Negative results do not preclude infection. This test has been authorized by the FDA under an Emergency Use Authorization (EUA). This test is only authorized for the duration of time the declaration that circumstances exist justifying the authorization of the emergency use of in vitro diagnostic tests for detection of SARS-CoV-2 virus and/or diagnosis of COVID-19 infection under section 564 (b) (1) of the Act, 21 U.S.C 360bbb-3 (b) (1), unless the authorization is terminated or revoked sooner. Reference Range: Not Detected Fact sheet for Healthcare providers can be found at https://www.fda.gov/media/059008/download. Fact sheet for Healthcare patients can be found at https://www.fda.gov/media/939721/download. us Fior HAGEN LAB MICROBIOLOGY - GENERAL ORD ERABLES Final Result [facility] [address] [place] [address], * XR Chest 2 Views (12/11/2024 7:23 AM EDT) Anatomical Region Laterality Modality Body Radiographic Dinora ging 12/11/2024 10:4 3 AM EDT Impressions 12/11/2024 10:44 AM EDT FINDINGS/IMPRESSION: Stimulator pack over the right chest wall. Lungs are clear. No congestive heart failure. Degenerative changes of the spine and shoulders. Surgical clips in the upper abdomen. -------- FINAL REPORT -------- Dictated By: Schuyler Silverio Dictated Date: 12/11/2024 10:43 ET Assigned Physician: Schuyler Silverio Reviewed and Electronically Signed By: Schuyler Silverio Signed Date: 12/11/2024 10:44 ET Workstation ID: [id number] Transcribed By: Self Edit Transcribed Date: 12/11/2024 10:43 ET Narrative 12/11/2024 10:44 AM EDT XR CHEST 2 VIEWS INDICATION: chest pain TECHNIQUE: XR CHEST 2 VIEWS COMPARISON: No priors available. Procedure Note Schuyler Silverio MD - 12/11/2024 XR CHEST 2 VIEWS INDICATION: chest pain TECHNIQUE: XR CHEST 2 VIEWS COMPARISON: No priors available. IMPRESSION: FINDINGS/IMPRESSION: Stimulator pack over the right chest wall. Lungs areclear. No congestive heart failure. Degenerative changes of the spineand shoulders. Surgical clips in the upper abdomen. -------- FINAL REPORT -------- Dictated By: Schuyler Silverio Dictated Date: 12/11/2024 10:43 ET Assigned Physician: Schuyler Silverio Reviewed and Electronically Signed By: Schuyler Silverio Signed Date: 12/11/2024 10:44 ET Workstation ID: [id number] Transcribed By: Self Edit Transcribed Date: 12/11/2024 10:43 ET Patrice Headley MD IMG XR PROCEDURES Final Result * (ABNORMAL) CBC auto differential (12/11/2024 6:43 AM EDT) WBC 4.3(L) 4.8 - 10.8 K/[facility] LAB HEMETOLOGY METHOD 12/11/2024 7:07 AM EDT [facility] RBC 4.30 3.80 - 4.80 M/mcL LAB HEMETOLOGY METHOD 12/11/2024 7:[address] [facility] Hemoglobin 14.3 11.5 - 16.0 g/dL LAB HEMETOLOGY METHOD 12/11/2024 7:[address] [facility] Hematocrit 43.0 35.0 - 47.0 % LAB HEMETOLOGY METHOD 12/11/2024 7:[address] [facility] MCV 99.3(H) 79.0 - 98.0 FL LAB HEMETOLOGY METHOD 12/11/2024 7:[address] [facility] MCH 33.0(H) 27.0 - 32.0 pcg LAB HEMETOLOGY METHOD 12/11/2024 7:[address] [facility] MCHC 33.3 32.0 - 37.0 g/dL LAB HEMETOLOGY METHOD 12/11/2024 7:[address] [facility] RDW 13.3 11.0 - 15.0 % LAB HEMETOLOGY METHOD 12/11/2024 7:[address] [facility] Platelets 237 130 - 400 K/mcL LAB HEMETOLOGY METHOD 12/11/2024 7:[address] [facility] MPV 9.8 7.0 - 11.0 FL LAB HEMETOLOGY METHOD 12/11/2024 7:[address] [facility] NRBC 0.0 <1.0 % LAB HEMETOLOGY METHOD 12/11/2024 7:[address] [facility] NRBC Absolute 0.00 <0.10 K/mcL LAB HEMETOLOGY METHOD 12/11/2024 7:[address] [facility] Neutrophils Relative 25.4 % LAB HEMETOLOGY METHOD 12/11/2024 7:[address] [facility] Lymphocytes Relative 58.3 % LAB HEMETOLOGY METHOD 12/11/2024 7:[address] [facility] Monocytes Relative 11.3 % LAB HEMETOLOGY METHOD 12/11/2024 7:[address] [facility] Eosinophils Relative 3.2 % LAB HEMETOLOGY METHOD 12/11/2024 7:[address] [facility] Basophils Relative 1.6 % LAB HEMETOLOGY METHOD 12/11/2024 7:[address] [facility] Immature Granulocytes Relative 0.2 % LAB HEMETOLOGY METHOD 12/11/2024 7:[address] [facility] Neutrophils Absolute 1.10(L) 1.50 - 7.00 K/mcL LAB HEMETOLOGY METHOD 12/11/2024 7:[address] [facility] Lymphocytes Absolute 2.53 1.00 - 5.00 K/mcL LAB HEMETOLOGY METHOD 12/11/2024 7:[address] [facility] Monocytes Absolute 0.49 0.20 - 1.00 K/mcL LAB HEMETOLOGY METHOD 12/11/2024 7:[address] [facility] Eosinophils Absolute 0.14 0.00 - 0.50 K/mcL LAB HEMETOLOGY METHOD 12/11/2024 7:[address] [facility] Basophils Absolute 0.07 0.00 - 0.20 K/mcL LAB HEMETOLOGY METHOD 12/11/2024 7:[address] [facility] Immature Granulocytes Absolute 0.01 0.00 - 0.03 K/mcL LAB HEMETOLOGY METHOD 12/11/2024 7:[address] [facility] Blood Venous blood specimen / Unknown Venipuncture / Unknown 12/11/2024 6:43 AM EDT 12/11/2024 7:01 AM EDT us Scot Conchita Headley MD LAB BLOOD ORDERABLES Final Resu lt Performing Organization Address [facility] Co de Phone Number [facility] [address] [place] [address], * B-type natriuretic peptide (12/11/2024 6:43 AM EDT) BNP 17 <=100 pcg/mL LAB CHEMISTRY METHOD 12/11/2024 8:37 AM EDT [facility] Blood Venous blood specimen / Unknown Venipuncture / Unknown 12/11/2024 6:43 AM EDT 12/11/2024 7:01 AM EDT us Patrice Headley MD LAB BLOOD ORDERABLES Final Resu lt Performing Organization Address [facility] de Phone Number [facility] [address] [place] [address], * Magnesium (12/11/2024 6:43 AM EDT) Pathologist [facility] Magnesium 1.9 1.9 - 2.6 mg/dL LAB CHEMISTRY METHOD 12/11/2024 7:28 AM EDT [facility] Blood Venous blood specimen / Unknown Venipuncture / Unknown 12/11/2024 6:43 AM EDT 12/11/2024 7:01 AM EDT us Patrice Headley MD LAB BLOOD ORDERABLES Final Resu lt Performing Organization Address [facility]/ZIP Co de Phone Number [facility] [address] [place] [address], [place] [phone] * Lipase (12/11/2024 6:43 AM EDT) Lipase 25 13 - 75 unit/L LAB CHEMISTRY METHOD 12/11/2024 7:28 AM EDT [facility] Blood Venous blood specimen / Unknown Venipuncture / Unknown 12/11/2024 6:43 AM EDT 12/11/2024 7:01 AM EDT us Patrice Headley MD LAB BLOOD ORDERABLES Final Resu lt [facility] [address] [place] [address], [place] [phone] * (ABNORMAL) Comprehensive metabolic panel (12/11/2024 6:43 AM EDT) Sodium 139 133 - 145 mmol/L LAB CHEMISTRY METHOD 12/11/2024 7:[address] [facility] Potassium 3.9 3.5 - 5.5 mmol/L LAB CHEMISTRY METHOD 12/11/2024 7:[address] [facility] Chloride 110 96 - 110 mmol/L LAB CHEMISTRY METHOD 12/11/2024 7:[address] [facility] CO2 24 21 - 32 mmol/L LAB CHEMISTRY METHOD 12/11/2024 7:[address] [facility] Anion Gap 5 3 - 11 LAB CHEMISTRY METHOD 12/11/2024 7:[address] [facility] Glucose 104(H) 70 - 100 mg/dL LAB CHEMISTRY METHOD 12/11/2024 7:[address] [facility] BUN 12 5 - 25 mg/dL LAB CHEMISTRY METHOD 12/11/2024 7:[address] [facility] Creatinine 0.72 0.50 - 1.10 mg/dL LAB CHEMISTRY METHOD 12/11/2024 7:[address] [facility] eGFR 95 >=60 mL/min/1. 73m2 LAB CHEMISTRY METHOD 12/11/2024 7:[address] [facility] Comment:Calculation based on the Chronic Kidney Disease Epidemiology Collaboration (CKD-EPI) equation refit without adjustment for race. BUN/Creatinine Ratio 16.7 LAB CHEMISTRY METHOD 12/11/2024 7:[address] [facility] Calcium 9.0 8.5 - 10.5 mg/dL LAB CHEMISTRY METHOD 12/11/2024 7:28 AM EDT [facility] AST (SGOT) 18 10 - 42 unit/L LAB CHE[facility]STRY [facility] ALT ([facility]PT[facility] 27 10 - 60 unit/L LAB CHEMISTRY METHOD 12/11/2024 7:28 AM EDT [facility] Alkaline Phosphatase 85 42 - 121 unit/L LAB CHEMISTRY METHOD 12/11/2024 7:28 AM EDT [facility] Total Protein 7.5 6.0 - 8.0 g/dL LAB CHEMISTRY METHOD 12/11/2024 7:[address] [facility] Albumin 3.4 3.2 - 5.0 g/dL LAB CHEMISTRY METHOD 12/11/2024 7:[address] [facility] Total Bilirubin 0.3 0.0 - 1.4 mg/dL LAB CHEMISTRY METHOD 12/11/2024 7:28 AM T [facility] Blood Venous blood specimen / Unknown Venipuncture / Unknown 12/11/2024 6:43 AM EDT 12/11/2024 7:01 AM EDT us aPtrice Headley MD LAB BLOOD ORDERABLES Final Resu lt [facility] [address] [place] [address], from Last 3 Months Insurance MEDICARE [employer] Care Teams Lumber Tallier Relationship Specialty Start Date End Date Sheree Dick MD PCP - General Endocrinology 10/31/24
== END 2025-02-21 11:26 | disposition home or self-care (01) ==
LOC: HO.HOP 11:10
PROVIDERS: PCP Internal Medicine Endocrinology, Diabetes & Metabolism; Visit Provider Clinical Nurse Specialist Psychiatric/Mental Health
DX: F51.05 Insomnia due to other mental disorder (principal); F41.1 Generalized anxiety disorder; F41.0 Panic disorder [episodic paroxysmal anxiety]; F33.41 Major depressive disorder, recurrent, in partial remission
CPT/HCPCS: 99214

== ENCOUNTER → 2025-03-14 17:43 | Outpatient (BNV) | payer OTHER, SELFPAY | PROVIDERS: PCP Internal Medicine Endocrinology, Diabetes & Metabolism; Visit Provider Radiology Diagnostic Radiology | DX: M46.1 Sacroiliitis, not elsewhere classified (principal) | CPT/HCPCS: 72148 ==

== ENCOUNTER 2025-03-14 18:40 | Outpatient (REF) | payer OTHER, SELFPAY ==
--- NOTE | ~2025-03-14 | MR_ITS ---
EXAMINATION: MR LUMBAR SPINE WITHOUT CONTRAST CLINICAL INFORMATION: Sacroiliitis COMPARISON: None available. TECHNIQUE: MRI of the lumbar spine was obtained using routine sequences without contrast. FINDINGS: Last rib-bearing vertebra labeled T12. Levoconvex curvature apex at L1-2. Bone marrow STIR signal in the posterior elements of right S1 no fully included in the nuqnd-ht-hjyp. Bone marrow inhomogeneity. Marginal osteophyte formation and disc desiccation pronounced at L3-4. There is normal alignment. Prominent epidural fat in a circumferential fashion from L3-4 to sacrum. Conus medullaris ends at intervertebral disc L1-2 with normal signal. T12-L1: No disc herniation. No neuroforamina stenosis. L1-2: No disc herniation. No neuroforamina stenosis. L2-3: Broad-based disc bulging. Facet joint hypertrophy. No compression upon neural elements. L3-4: Broad-based disc bulging. Facet joint hypertrophy. Reduced AP diameter of the thecal sac. No compression upon neural elements. L4-5: Prominent epidural fat in a circumferential fashion. Broad-based disc bulging. Facet joint and ligamentum flavum hypertrophy. Reduced AP diameter of the thecal sac and left neuroforamina narrowing. L5-S1: Prominent epidural fat in a circumferential fashion reducing the AP diameter of the thecal sac. Broad-based disc bulging. Facet joint hypertrophy. Left neuroforamina narrowing encroaching the left L5 exiting roots. No prevertebral compartment hematoma, mass or fluid collection. MR/MR lumbar spine wo con IMPRESSION: Bone marrow edema/contusion/inflammatory changes in the posterior elements left S1. Epidural lipomatosis at L5-S1 reducing the AP diameter of the thecal sac. Left neuroforamina narrowing on a degenerative basis at L5-S1 and to a lesser extent L4-5. Electronically signed by: Steven Nunez MD 03/15/2025 07:20 AM EDT
--- OUTSIDE RECORDS SUMMARY | 2025-03-14 18:47 | XMS_ITS | Continuity of Care Document ---
Author Organization [facility] [address] [place] [address] Phone [phone] Problems Active Problems Provider Date Autoimmune hemolytic [...] M.D. Onset: 05/01/2022 Small fiber neuropathy Iam Coleamn Onset: 05/01/2022 Gastroesophageal reflux disease Sheree Hart [...] Qnty Indications Order ing Provider Date Amlodipine Ghuxhuby2dg Tablets 1 by mouth every day 90tabs Sheree Dick M.D. 04/06/2024 Losartan Vkseybqgd672tf Tablets 1 by mouth every day 90tabs [...] needed 30tadejah Dick M.D. 03/06/2023 Albuterol Sulfate EEF353(90Base) mcg/Act Aerosol use 2 puffs every 4 to 6 hours as needed 6.700gm Sheree Dick M.D. 12/30/2022 Fluticasone Qzezbsnvsr20uyg/Act Suspension Use 2 Sprays In Each Nostril Once Daily as Needed 48units Sheree Dick M.D. 07/10/2022 Citalopram Akhektwbeeyq26vq Tablets Take One And One-Half Tablets Daily 135tabs Sheree Dick M.D. 04/06/2022 Zyrtec Isgtbzu33sp Capsules take 1 capsule daily as needed Unknown Prucalopride Fawydkryo2ps Tablets 1 qd Unknown Uxclpqbmhdp5uq Tablets 1 qhs Unknown Buspirone RJR06px Tablets 1 by mouth twice a day Unknown Pantoprazole Ecvqxi25tu Tablets DR 1 by mouth every day Unknown Dicyclomine SRX36na Capsules prn Unknown Efbupilizn733ee Capsules take 1 capsules by mouth every day at bedtime Unknown Vitamin Q798sto (1000 Ut) Capsules 2 by mouth every day Sheree Dick M.D. Rbimjuk4gw Tablets Take 1 Tablet Twice A Day 180tadejah Dick M.D. Vgnpzpdclurfwn34jd Tablets Take 1 Tablet Twice A Day as Directed 180tadejah Dick M.D. Jcrvx310Wola Solution Rec Every 3 months Sheree Dick M.D. Acetaminophen Extra Gurbngkd817oe Tablets take as directed when needed Unknown Lidocaine5% Patches apply for 12 hours, remove for 12 hours for back pain 30units Sheree Dick M.D. Betamethasone Dipropionate0.05% Cream Apply twice daily as needed Unknown Clindamycin Phosphate1% Lotion Apply To Back Once Daily In Am. Unknown Pramipexole Dihydrochloride0.5mg Tablets Take 1 Tablet By Mouth Every Evening For RLS 90tabs Sheree Dick M.D. Hydroxychloroquine Hgowlac011pa Tablets Take 1 tablet twice daily 180tabs [...] Christiano 15 mg/dL 5-40 LDL Chol Calc ([facility]) 128 mg/dL High 0-99 LDL Calc [...] (SGPT) 23 IU/L 0-32 Lipid Panel 12/30/2022 [facility] Cholesterol, Total 239 mg/dL High (<200) Triglyceride 74 mg/dL (<150) HDL Chol 97 mg/dL (>39) LDL Cholesterol , Calculated 127 mg/dL (0-130) Non HDL Cholesterol (Calc) 142 mg/dL (<160) Hemoglobin A1c 12/30/2022 [facility] Hemoglobin A1c 5.5 % (4.0-5.6) 4 Basic Metabolic Panel 12/30/2022 [facility] Glucose 96 mg/dL (70-99) BUN 13 mg/dL (8-23) Creatinine 0.7 mg/dL (0.5-1.0) Sodium 136 mmol/L (133-145) Potassium 4.7 mmol/L (3.6-5.2) Chloride 101 mmol/L (98-107) Bicarbonate 24 mmol/L (22-29) Anion Gap 11 (4-17) Calcium 9.5 mg/dL (8.6-10.5) Estimated GFR Creatinine 99 ML/MIN/1. 73M2 5 Glucose Fingerstick 12/30/2022 Inhouse Glucose Fingerstick 94 High Fasting Canc Ant-125 10/23/2022 [facility] Canc Ant-125 7 U/ML (0-35) 6 Canc Ant-125 10/22/2022 [facility] Canc Ant-125 <pending> Glucose Fingerstick 08/28/2022 Inhouse Glucose Fingerstick 127 Glucose Fingerstick 05/01/2022 Inhouse Glucose Fingerstick 121 1 Prediabetes: 5.7 - 6 .4 Diabetes: >6.4 Glycemic control for adults with diabetes: <7.0 2 Prediabetes: 5.7 - 6 .4 Diabetes: >6.4 Glycemic control for adults with diabetes: <7.0 3 Vitamin D deficiency has been defined by the [place] of [employer] and an Endocrine Society practice guideline as a level of serum 25-OH vitamin D less than 20 ng/mL (1,2). The Endocrine Society went on to further define vitamin D insufficiency as a level between 21 and 29 ng/mL (2). 1. IOM ([place] of Medicine). 2010. Dietary reference intakes for calcium and D. [place]: The National Academies Press. 2. Demly MF, Purvi NC, Meliton COLLIER, et al. Evaluation, treatment, and prevention of vitamin D deficiency: an Endocrine Society clinical practice guideline. JCEM. 2010; 96(7):1911-30. 4 MONITORING: In known diabetic patients, hemoglobin A1c targets should be discussed with health care provider. DIAGNOSTIC USE: The [place] Diabetes Association (ADA) and the World Health [...] therapy. Procedures Date Code Description Status 08/04/2024 92269 Collection Of Venous Blood B y Venipuncture Completed 12/11/2023 52584 Electrocardiogram Complete C ompleted 12/11/2023 06328 Collection Of Venous Blood B y Venipuncture Completed 12/30/2022 34468 Collection Of Venous Blood B y Venipuncture Completed 12/24/2021 02935 Electrocardiogram Complete C ompleted 10/09/2021 14667 Collection Of Capillary Bloo d Specimen Completed [...] Reason for Referral Status Appt Arik e [facility] Allergy Chronic cough/elevated I GE Closed [address] [place] [address] [phone] [facility] Pulmonary DYSPNEA, REDUCED DIFFUSION CAPACITY Closed 04/13/2024 [address] [place] [address] [phone] [facility] Pulmonary PULMONARY FUNCTION T EST EVALUATE DYSPNEA ON EXERTION R/O ASTHMA Closed 01/25/2024 [address] [place] [address] [phone] [facility] Lupus and Fibromyalgia Clos ed [address] [place] [address] [phone] [facility] Neurology & S lee Domi memory issues/ cognitive and impaired judgment Closed 07/23/2023 [address] [place] [address] [phone] Donna Rodgers MD ELBOW TENDINITIS/LATERAL EPICONDYLITIS Closed [address] [facility] [place] [address] [phone] Adal Sexton MD COGNITIVE IMPAIRMENT Closed [address] [place] [address] [phone] [facility] Neurology DECLAIMING MEMORY Closed 03/[address] [address] [phone]
--- OUTSIDE RECORDS SUMMARY | 2025-03-14 18:47 | XMS_ITS | Clinical Summary ---
Author Organization [facility] Address [address] [place] [address] Phone Care Team Providers Care Telecom Billing Analyst Name Role Phone Sheree Dick MD Primary Care Prov ider Allergies Active Allergy Reactions Criticality Noted Date Comments Latex, Natural Rubber Hives,Itching,Palp itations,Swel ling Low 04/30/2023 Metformin Diarrhea,GI Upset 04/30/2023 Oxycodone Flushing,Itching,Palpitations Low 2022 Medications amLODIPine (NORVASC) 10 MG tablet Take 1 tablet by mouth daily. Active apixaban (ELIQUIS) 5 mg tablet Take 5 mg by mouth daily. Active cholecalciferol, vitamin D3, (VITAMIN D3) 10 mcg (400 unit) capsule Take 1 tablet by mouth daily. Active citalopram (CELEXA) 20 MG tablet Take 1 tablet by mouth daily. 3 Active donepeziL (ARICEPT) 10 MG tablet Take 10 mg by mouth daily. Active losartan (COZAAR) 50 MG tablet Take 50 mg by mouth daily. 3 Active omeprazole (PRILOSEC) 40 MG capsule Take 40 mg by mouth daily. 3 Active botulinum toxin type A (BOTOX) 200 unit SolR Every 3 months A ctive ondansetron (ZOFRAN) 4 MG tablet Take 4 mg by mouth every 8 (eight) hours as needed. 3 Active pramipexole (MIRAPEX) 0.5 MG tablet Take 1 tablet by mouth nightly at bedtime. 3 Active spironolactone (ALDACTONE) 50 MG tablet Take 1 tablet by mouth daily. Active lidocaine (LIDODERM) 5 % Place 1 patch onto the skin daily. Remove & Discard patch within 12 hours or as directed by Active betamethasone, augmented, (DIPROLENE AF) 0.05 % cream Apply topically 2 (two) times a day. Active tacrolimus (PROTOPIC) 0.1 % ointment Apply topically 2 (two) times a day. Active methylPREDNISolo ne (MEDROL DOSEPACK) 4 mg tablet follow package directions 21 tablet 4 Active hydroxychloroqui ne (PLAQUENIL) 200 mg tabletIndication s:Systemic lupus erythematosus, unspecified SLE type, unspecified organ involvement status TAKE 1 TABLET TWICE A DAY 180 tablet 5 Active Active Problems Problem Noted Date Diagnosed Date Primary osteoarthritis involving multiple joints 05/07/2023 Assessment & Plan (05/07/2023 11:20 AM EDT): Degenerative osteoarthritis in multiple joints with stiffness and gelling but no active swelling. She can take Tylenol as needed for pain. Advised her to get daily physical activity to maintain her stamina and mobility. Osteopenia of multiple sites 05/07/2023 Assessment & Plan (05/07/2023 11:22 AM EDT): He has osteopenia in the spine and hip based on recent bone density from April 09, 2023. There is indication that there is decline in density compared to previous scan. She is already on a vitamin D supplement. Advised her to increase her daily intake of calcium and vitamin D through foods and supplements. She should also try and get regular weightbearing exercise. 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 She is on Aricept and seems to to have new neurologic deficits. She will be seeing a neurologist in mid July. She has no active lupus symptoms. Continue with Plaquenil. Fibromyalgia 04/30/2023 Assessment & Plan (05/07/2023 11:21 AM EDT): Diffuse muscle pain perhaps consistent with fibromyalgia. She is not on any medicine for fibromyalgia, except for Celexa. Encounters Date Type Department Care Team Description 12/13/2024 Refill [facility] Rheumatology [address] [place] [address] Maria Victoria Jones MD Medication Refill from Last 3 Months Family History Medical History Relation Comments Diabetes Brother Hypertension Brother Diabetes Father Heart disease Father Diabetes Mother Heart disease Mother Hypertension Mother Hypertension Sister Relation Status Comments Brother Alive Father Mother Sister Alive Social History Tobacco Use Types Packs/Day Years Used Date Smoking Tobacco: Never Smokeless Tobacco: Never Tobacco Cessation:Counseling Given: Not Answered Alcohol Use Standard Drinks/Week Comments Yes 2 (1 standard drink = 0.6 oz pur e alcohol) not every week Education Answer Date Recorded Are you interested in more education? Not on epi e 11/07/2022 Are you concerned about learning? Not on file 11/07/2022 No 11/07/2022 No 11/07/2022 Digital Access Answer Date Recorded No 12/08/2022 No 12/08/2022 Reliable internet access at home? Not on file 12/08/2022 Device with a working camera? Not on file Comments Unknown Sex and Gender Information Value Date Recorded Sex Assigned at Not on file Legal Sex Female 4:07 PM EST Gender Identity Not on file Sexual Orientation Not on file Last Filed Vital Signs Vital Sign Reading Time Taken Comments Blood Pressure 124/64 04/30/2023 11:14 AM EDT Pulse 81 04/30/2023 11:14 AM EDT Temperature 36.6 C (97.8 F) 01/03/2016 10:26 AM EDT Respiratory Rate - - Oxygen Saturation 98% 04/30/2023 11:14 AM EDT Inhaled Oxygen Concentration - - Weight 76.2 kg (168 lb) 04/30/2023 11:14 AM EDT Height 160 cm (5' 3 ) 04/30/2023 11:14 AM EDT Body Mass Index 29.76 04/30/2023 11:14 AM EDT Plan of Treatment Health Maintenance Due Date Last Done Comments Adult Td,Tdap Booster 1962 LIPID PANEL 1962 DEPRESSION SCREENING 1974 HEPATITIS C SCREENING 01/13/1980 HIV ONE-TIME SCREENING (18-65 YEARS) 01/13/1980 PAP SMEAR 1983 MAMMOGRAM 2002 COLOGUARD 2007 COLONOSCOPY 2007 COLORECTAL CANCER SCREENING 2007 FIT TEST 2007 FOBT 2007 SIGMOIDOSCOPY 2007 VIRTUAL COLONOSCOPY 2007 PNEUMOCOCCAL VACCINES (50+ years) (1 of 1 - PCV) 01/13/2012 ZOSTER VACCINES (2 of 2) 05/14/2023 03/19/2023 COVID-19 VACCINE ( season) 2024 07/16/2022, 01/02/2022, 05/07/2021, Additional history exists POTASSIUM LEVEL 04/30/2024 04/30/2023, 01/03/2016 INFLUENZA VACCINE (#1) 2025 , 05/09/2020, 05/03/2014 CREATININE LEVEL 05/30/2025 05/30/2024, , 01/03/2016 SCREENING FOR DIABETES 04/30/2026 04/30/2023 RSV VACCINE (1 - 1-dose 75+ series) 2037 SMOKING STATUS SCREENING (Once After 26 Yrs) Completed 04/30/2023 HEPATITIS A VACCINES Aged Out No long er eligible based on patient's age to complete this topic HIB VACCINES Aged Out No longer eligi ble based on patient's age to complete this topic MENINGOCOCCAL VACCINES (ACWY) Aged Out No longer eligible based on patient's age to complete this topic MENINGOCOCCAL VACCINES (B) Aged Out N o longer eligible based on patient's age to complete this topic Medical Devices Not on file Procedures Procedure Name Priority Date/Time Associated Diagnosis Comments COMPREHENSIVE METABOLIC PANEL Routine 05/30/2024 9:21 AM EST Systemic lupus erythematosus, unspecified SLE type, unspecified organ involvement status Long-term use of Plaquenil COMPREHENSIVE METABOLIC PANEL Routine 04/30/2023 12:12 PM EDT Systemic lupus erythematosus, unspecified SLE type, unspecified organ involvement status from Last 3 Months or Most Recently Relevant to Health Maintenance Results * Comprehensive metabolic panel (05/30/2024 9:21 AM EST) Only the most recent of2 resultswithin the time period is included. Blood us Maria Victoria Jones MD LAB BLOOD ORDERABLES Fin al Result EXTERNAL NON-INTERFACED REF LAB from Last 3 Months or Most Recently Relevant to Health Maintenance Insurance SHIN PPO CIGLINDY PPO CIGNA PPO CIGNA PPO CIGNA PPO CIGNA PPO Care Teams Telecom Billing Analyst Relationship Specialty Start Date End Date Sheree Dick MD [address] [place] [address] [place] [address] PCP - General 11/16/14 Additional Source Comments The information contained in this document represents components of the legal health record. It is not the complete legal health record.[facility]
--- OUTSIDE RECORDS SUMMARY | 2025-03-14 18:47 | XMS_ITS | Encounter Summary ---
Author Organization [facility] Address [address] [place] [address] Phone Care Team Providers Care Supervisor Finishing Room Name Role Phone Sheree Dick MD Primary Care Prov ider Reason for Referral * Physical Therapy (Routine) - Closed Specialty Diagnoses / Procedures Referred By Brandon rosario Referred To Contact Physical Therapy Hetal Nunez NP [address] [facility] [address] [place] [address] Phone: tel: [address] [address] Phone: tel: Referral ID Status Reason Start Date Expiration Date Visits Re quested Visits Authorized [id number] Closed 03/30/2020 03/30/2021 1 1 Encounter Details Date Type Department Care Team (Late st Contact Info) Description 03/30/2020 Transcribe Orders [facility] Rehabilitation Services [address] [place] [id number] Hetal Nunez NP [address] [place] [address] Social History Tobacco Use Types Packs/Day Years Used Date Smoking Tobacco: Never Comments Unknown Sex and Gender Information Value Date Recorded Sex Assigned at Not on file Legal Sex Female 4:07 PM EST Gender Identity Not on file Sexual Orientation Not on file documented as of this encounter Plan of Treatment Scheduled Referrals Name Type Priority Associated Diagnoses Order Schedule Ambulatory referral to [facility] Physical Therapy Outpatient Referral Routine Ordered: 03/30/2020 documented as of this encounter Visit Diagnoses Not on filedocumented in this encounter Care Teams Supervisor Finishing Room Relationship Specialty Start Date End Date Sheree Dick MD [address] [place] [address] [place] [address] PCP - General 11/16/14 documented as of this encounter Additional Source Comments The information contained in this document represents components of the legal health record. It is not the complete legal health record.[facility]
--- OUTSIDE RECORDS SUMMARY | 2025-03-14 18:47 | XMS_ITS | Clinical Summary ---
Author Organization [facility] Address [address] [place] [address] Phone Care Team Providers Care Medical Review Coordinator Name Role Phone Sheree Dick MD Primary [...] Active Active Problems No known active problems Medical History Medical History Date Comments Hypertension Lupus (systemic lupus erythematosus) (CMS/[facility] V2 4, CMS/[facility] V28) Social History Tobacco Use Types Packs/Day [...] Date/Time Associated Diagnosis Comments ECG ANNOTATED 12/13/2024 COMPREHENSIVE METABOLIC PANEL STAT 12/11/2024 6:43 AM EDT from Last 3 Months or Most Recently Relevant to Health Maintenance Results * ECG-Annotated (12/13/2024) Provider Onbase ECG ORDERABLES Final Result * (ABNORMAL) Comprehensive metabolic panel (12/11/2024 6:43 AM EDT) Sodium 139 133 - 145 mmol/L LAB CHEMISTRY METHOD 12/11/2024 7:28 AM [facility] Potassium 3.9 3.5 - 5.5 mmol/L LAB CHEMISTRY METHOD 12/11/2024 7:28 AM [facility] Chloride 110 96 - 110 mmol/L LAB CHEMISTRY METHOD 12/11/2024 7:28 AM [facility] CO2 24 21 - 32 mmol/L LAB CHEMISTRY METHOD 12/11/2024 7:28 AM [facility] Anion Gap 5 3 - 11 LAB CHEMISTRY METHOD 12/11/2024 7:28 AM [facility] Glucose 104(H) 70 - 100 mg/dL LAB CHEMISTRY METHOD 12/11/2024 7:28 AM [facility] BUN 12 5 - 25 mg/dL LAB CHEMISTRY METHOD 12/11/2024 7:28 AM [facility] Creatinine 0.72 0.50 - 1.10 mg/dL LAB CHEMISTRY METHOD 12/11/2024 7:28 AM [facility] eGFR 95 >=60 mL/min/1. 73m2 LAB CHEMISTRY METHOD 12/11/2024 7:28 AM [facility] Comment:Calculation based on the Chronic Kidney Disease Epidemiology Collaboration (CKD-EPI) equation refit without adjustment for race. BUN/Creatinine Ratio 16.7 LAB CHEMISTRY METHOD 12/11/2024 7:28 AM [facility] Calcium 9.0 8.5 - 10.5 mg/dL LAB CHEMISTRY METHOD 12/11/2024 7:28 AM [facility] AST (SGOT) 18 10 - 42 unit/L LAB CHEMISTRY METHOD 12/11/2024 7:28 AM [facility] ALT (SGPT) 27 10 - 60 unit/L LAB CHEMISTRY METHOD 12/11/2024 7:28 AM [facility] Alkaline Phosphatase 85 42 - 121 unit/L LAB CHEMISTRY METHOD 12/11/2024 7:28 AM [facility] Total Protein 7.5 6.0 - 8.0 g/dL LAB CHEMISTRY METHOD 12/11/2024 7:28 AM [facility] Albumin 3.4 3.2 - 5.0 g/dL LAB CHEMISTRY METHOD 12/11/2024 7:28 AM [facility] Total Bilirubin 0.3 0.0 - 1.4 mg/dL LAB CHEMISTRY METHOD 12/11/2024 7:28 AM [facility] Blood Venous blood specimen / Unknown Venipuncture / Unknown 12/11/2024 6:43 AM EDT 12/11/2024 7:01 AM EDT us Patrice Headley MD LAB BLOOD ORDERABLES Final Resu lt JOE JAIMES [place] ([facility]) [facility] [address] [place] [address], [place] [phone] from Last 3 Months or Most Recently Relevant to Health Maintenance Insurance MEDICARE [facility] Care Teams Medical Review Coordinator Relationship Specialty Start Date End Date Sheree Dick MD PCP - General Endocrinology 10/31/24
== END 2025-03-14 18:41 | disposition home or self-care (01) ==
LOC: HO.MRI 18:40
PROVIDERS: PCP Internal Medicine Endocrinology, Diabetes & Metabolism; Visit Provider Physical Medicine & Rehabilitation
DX: M46.1 Sacroiliitis, not elsewhere classified (principal); M53.3 Sacrococcygeal disorders, not elsewhere classified
CPT/HCPCS: 72148

== ENCOUNTER 2025-03-28 10:45 | Outpatient (AMB) | payer OTHER, SELFPAY ==
[2025-03-28 11:07] VITALS: BP 112/74; PULSE 77; O2SAT 97; BMI 28.3
--- NOTE | 2025-03-28 11:07 | A.OFFVIS_ITS ---
Vital Signs 03/28/25 11:07 Height 5 ft 3 in Weight 159 lb 8 oz BMI 28.3 BP 112/74 Blood Pressure Location Rt brachial Position Sitting Pulse 77 Pulse Source Pulse Oximeter Pulse Oximetry (%) 97 Oxygen Delivery Method Room Air Intake Visit Reasons: 3 mo follow up Intake Note: Patient presents follow up RLS/Cognitive. MRI in chart. Patient was seen at [facility] for possible stoke TIA, March 15. MRI also done there as well. Accompanied by: Self / Same As Patient Allergies acetaminophen (From Percocet) Allergy (Mild, Verified 03/28/25 11:10) Migraine azathioprine (From Imuran) Allergy (Mild, Verified 03/28/25 11:10) Unknown celecoxib (From Celebrex) Allergy (Mild, Verified 03/28/25 11:10) Unknown latex Allergy (Mild, Verified 03/28/25 11:10) Unknown metformin Allergy (Mild, Verified 03/28/25 11:10) unknown oxycodone (From Percocet) Allergy (Mild, Verified 03/28/25 11:10) Migraine amoxicillin (From Augmentin) Allergy (Unknown, Verified 03/28/25 11:10) sdriffe Rash clavulanic acid (From Augmentin) Allergy (Unknown, Verified 03/28/25 11:10) sdriffe Rash HPI Comments Details: 64 year old female with H/O anxiety, panic attacks and Cognitive decline presents today for a f/u. January 2025 Physiotrist SI joint cortisone joint. 10/25/2024 ED visit [facility] Diverticulitis and managed with cipro and flagyl for 2 weeks, +fluids. 10/31/2024 ED Ju severe flank pain, muscle or nerve? going to PT then will f/u with physiotrist. 12/11/2024 ED Ju N/V and Diarrhea trip to [facility], had multiple rutherford cocktails for Gastroenteritis. HST 12/2024 [facility] pending results for Inspire titration. 03/14/2025 She experienced stroke-like symptoms of dysarthria, tongue pointing to the right side of mouth, clenching and stiffness of jaw, with r. arm paresthesias lasting for longer than 5 min, she had dysphagia was unable to follow directions during testing. Her drove her to the [facility] ER at 7:45pm, she was seen by a neurologist supervisor fiber locking. Complete work up with MRI were negative. She is on blood thinners had not been taking it for 3 days, since her r/f were not filled by express script. Hospital gave her 30 days of elliquis, then received 90 day supply from mail order. 03/15/2025 CT of head shows patent BRENT, MCA, INSTRUCTIONAL DESIGN SPECIALIST, no hemorrhagic changes, no proximal occlusion or high grade stenosis in the major arteries of the head and neck. Apr 14 Transforminal Epidural injection. INspire therapy she saw Dr. Umanzor via telehealth, he will f/u with her to ensure this stroke like activity does not coincide with the Inspire therapy She is being followed by Rheumatology for SLE and Raynaud's. Goes to bed at 11pm and wakes up at 4am then can not fall asleep she is now on Lunesta and Melatonin otc. She had moderate to severe sleep apnea and did not tolerate cpap use and or mask. She is on Inpire therapy. She continues to have general anxiety with spiraling, intrusive thoughts, she is taking Buspirone 10mg PO BID, managed by psychiatrist. Panic attacks have improved since last visit. She is seeing Claudia Sal at [facility] for therapy and on Lunesta 2mg PO and feels it is sedating. She says her RLS symptoms are better with Pramipexole 0.75mg, however she has bilateral hand spasms, when cold or hot water touches her fingers with numbness and tingling that intensifies. She was dx with small fiber neuropathy by [facility], she continues to take 100mg Gabapentin at night. She still has difficulty with STM, word finding difficulty and recall, lacks attention and focus. She has to complete one task at a time purposefully and mindfully. Patient education provided on self care today. She likes to cook has to turn the seasoning jars upside down to remember which ones were used, uses stickies at home, and a timer for laundry. She gets confused when driving and using the GPS navigation though she is adapting with coping strategies. No highway. She is socially active with her quaker, community and social activities. She walks daily as tolerable and is continuing with PT. MMSE is 29/30 today. Last week [place] to reassess the voltage and amplitude request inspire therapy logs with Dr. Umanzor, Mar. [facility]. Buspar-pcp Jun 26 at ten [facility] Medical History Carpal tunnel syndrome of right wrist Restless legs syndrome (RLS) Numbness and tingling Cognitive disorder Prediabetes HTN (hypertension) Gastritis Hereditary spherocytosis Osteopenia GERD (gastroesophageal reflux disease) Small fiber neuropathy DVT (deep vein thrombosis) in Pulmonary emboli SLE (systemic lupus erythematosus related syndrome) Kidney stone Fibromyalgia SVT (supraventricular tachycardia) PVC (premature ventricular contraction) IBS (irritable bowel syndrome) Depression Anxiety PCOD (polycystic ovarian disease) Autoimmune hemolytic anemia Retinal detachment History of open sigmoidectomy Family History Father Diabetes Mother Diabetes Brother Diabetes Social History Unable to assess alcohol history related to: Unable to respond and Unknown Alcohol intake: never Patient Tobacco Use Status: Never used Tobacco Physical Exam Vital Signs: Last Vital Signs Pulse 77 03/28/25 11:07 BP 112/74 03/28/25 11:07 Pulse Ox 97 03/28/25 11:07 Oxygen Delivery Method Room Air 03/28/25 11:07 BMI result Body Mass Index 28.3 Const General: cooperative, comfortable and no acute distress Nutritional Appearance: average body habitus Orientation/consciousness: patient oriented x3 Eyes General: appearance normal, both eyes and all related structures Pupils: Equal, round and reactive pupils present, Pupils normal by confrontation and Pupil accommodation reflex normal Neck Neck: Yes full ROM and Yes supple Resp Effort & Inspection: normal respiratory effort and able to speak in complete sentences Neuro Other: oral tics, coarse tongue tremors, is shaky, due to titration of Inspire and implant in HG nerve? Risperidall use? R. side facial asymmetry, r side is lower than left side of the face, denies stroke or bells palsy General: patient oriented x3, tone normal, moves all extremities, Normal light touch and pain sensation and CN's II-XI intact bilaterally Cranial nerves: Yes CN's II-XII intact bilaterally, Yes Facial sensation intact/muscles of mastication intact, Yes Equal, round and reactive pupils present, Yes Normal facial strength present, Yes Midline tongue present, Yes Ability to bilaterally rotate head present and Yes Ability to bilaterally elevate shoulders present Gait exam (Neuro): Normal gait present Motor exam (neuro): 5/5 motor strength present throughout and Normal motor muscle tone present throughout Coordination: ihvibu-ls-xion test normal Psych Appearance: grossly normal Speech and movement: Normal speech and movement present Affect: No normal affect Thought process: Normal thought process present Assessment & Plan Assessment & Plan (1) Restless legs syndrome (RLS): Code(s): G25.81 - Restless legs syndrome Category: Medical (2) Cognitive disorder: Code(s): F09 - Unspecified mental disorder due to known physiological condition Category: Medical (3) Anxiety: Code(s): F41.9 - Anxiety disorder, unspecified Category: Medical (4) Bilateral finger numbness: Code(s): R20.0 - Anesthesia of skin Category: Medical (5) Cognitive decline: Code(s): R41.89 - Other symptoms and signs involving cognitive functions and awareness Category: Medical Plan ALETHA on Inspire [facility] sleep ctr dr. umanzor notes pending for titration is at optimal therapy now. Sleep Difficulties continue Lunesta 2mg PO daily and melatonin 3-6mg PO For Restless Leg Syndrome continue Pramiprexole 0.75mg PO at bedtime. Mood and Anxiety Continue Buspirone to 10mg BID, as she continues to have anxiety. Continue Citalopram 20mg PO Numbness and tingling in fingers bilateral hands NCS has SLE and Raynauds, Rheumatology referral is pending Sep 2024. Cognitive Difficulties STM, will monitor and MMSE was 29/30 today will f/u with MRI? (model of inspire implant not clear) Continue [place] [facility] continue to walk and socialize, staying active, doing puzzles. Oral tics? SE of medication? Risperidall? Inspire therapy adjustment? Lunesta? Patient Instructions: F/U in 3 months. Scribe Plan - Not visible on output: MMSE next visit. Coding Level of Care Code Est Pt Level 4 (30656) Diagnoses Restless legs syndrome (RLS) G25.81 Cognitive disorder F09 Anxiety F41.9 Bilateral finger numbness R20.0 Cognitive decline R41.89
--- OUTSIDE RECORDS SUMMARY | 2025-03-28 14:22 | XMS_ITS | Encounter Summary ---
Author Organization [facility] Address [address] [place] [address] Phone Care Team Providers Care Paper Mill Superintendent Name Role Phone Sheree Dick MD Primary Care Prov ider Reason for Referral * Physical Therapy (Routine) - Closed Specialty Diagnoses / Procedures Referred By Brandon rosario Referred To Contact Physical Therapy Hetal Nunez, TUSHAR [address] [facility] [address] [place] [address] Phone: tel: [address] [address] Phone: tel: Referral ID Status Reason Start Date Expiration Date Visits Re quested Visits Authorized [id number] Closed 03/30/2020 03/30/2021 1 1 Encounter Details Date Type Department Care Team (Late st Contact Info) Description 03/30/2020 Transcribe Orders [facility] [address] [place] [address] Hetal Nunez APRN [address] [place] [address] Social History Tobacco Use Types Packs/Day Years Used Date Smoking Tobacco: Never Comments Unknown Sex and Gender Information Value Date Recorded Sex Assigned at Not on file Legal Sex Female 4:07 PM EST Gender Identity Not on file Sexual Orientation Not on file documented as of this encounter Plan of Treatment Scheduled Referrals Name Type Priority Associated Diagnoses Order Schedule Ambulatory referral to [facility] Physical Therapy Outpatient Referral Routine Ordered: 03/30/2020 documented as of this encounter Visit Diagnoses Not on filedocumented in this encounter Care Teams Paper Mill Superintendent Relationship Specialty Start Date End Date Sheree Dick MD [address] [place] [address] [place] [address] PCP - General 11/16/14 documented as of this encounter Additional Source Comments The information contained in this document represents components of the legal health record. It is not the complete legal health record.[facility]
--- OUTSIDE RECORDS SUMMARY | 2025-03-28 14:22 | XMS_ITS | Clinical Summary ---
Author Organization [facility] Address [address] [place] [address] Phone Care Team Providers Care Knotter Name Role Phone Sheree Dick MD Primary [...] any medicine for fibromyalgia, except for Celexa. Family History Medical History Relation Comments Diabetes [...] (2 of 2) 05/14/2023 03/19/2023 COVID-19 VACCINE (6 - season) 2024 07/16/2022, 01/02/2022, 05/07/2021, Additional history [...] Most Recently Relevant to Health Maintenance Insurance CIGNA PPO CIGNA PPO Member Subscriber Plan / Payer (Ef fective 2019-Present) Name:Lo Courtney Relation to Subscriber:Self Name:Lo Courtney Payer ID:[id number] (NAIC) Type:PPO Address: [place] [id number] CIGNA PPO CIGNA PPO CIGNA PPO CIGNA PPO Care Teams Knotter Relationship Specialty Start Date End Date Sheree Dick MD [address] [place] [address] [place] [address] PCP - General 11/16/14 Additional Source Comments The information contained in this document represents components of the legal health record. It is not the complete legal health record.[facility]
--- OUTSIDE RECORDS SUMMARY | 2025-03-28 14:22 | XMS_ITS | Continuity of Care Document ---
Author Organization [facility] [address] [place] [address] Phone [phone] Problems Active Problems Provider Date Autoimmune hemolytic [...] Onset: 05/01/2022 Obstructive sleep apnea syndrome Sheree iLnares M.D. Onset: 05/01/2022 Small fiber neuropathy Iam Coleman Onset: 05/01/2022 Gastroesophageal reflux disease Sheree Hart M.D. Onset: 05/01/2022 Osteopenia Sheree Dick M.D. Ons et: 05/01/2022 Mild cognitive disorder Sheree Dick M.D. Onset: 05/01/2022 Retinal detachment Sheree Dick M.D. Onset: 05/01/2022 Hereditary spherocytosis Sheree Dick M.D. Onset: 05/01/2022 Helicobacter-associated gastritis Sheree Rodriguez M.D. Onset: 05/01/2022 Essential hypertension Iam oCleman Onset: 08/28/2022 Prediabetes Sheree Dick M.D. Ons [...] Qnty Indications Order ing Provider Date Amlodipine Fvnpjrba7qw Tablets 1 by mouth every day 90tabs Sheree Dick M.D. 04/06/2024 Losartan Gwcvpatrr912rq Tablets 1 by mouth every day 90tabs [...] needed 30tadejah Dick M.D. 03/06/2023 Albuterol Sulfate CCF178(90Base) mcg/Act Aerosol use 2 puffs every 4 to 6 hours as needed 6.700gm Sheree Dick M.D. 12/30/2022 Fluticasone Edqjktoelk29odr/Act Suspension Use 2 Sprays In Each Nostril Once Daily as Needed 48units Sheree Dick M.D. 07/10/2022 Citalopram Bavjhahgbcff09pn Tablets Take One And One-Half Tablets Daily 135tabs Sheree Dick M.D. 04/06/2022 Zyrtec Qfjgiql48ck Capsules take 1 capsule daily as needed Unknown Prucalopride Oazdeauvh4qr Tablets 1 qd Unknown Ehsfnevuikz8vc Tablets 1 qhs Unknown Buspirone ZEP29zz Tablets 1 by mouth twice a day Unknown Pantoprazole Icjefa10qa Tablets DR 1 by mouth every day Unknown Dicyclomine SEO59ze Capsules prn Unknown Hpbsviwthb296ny Capsules take 1 capsules by mouth every day at bedtime Unknown Vitamin B397pax (1000 Ut) Capsules 2 by mouth every day Sheree Dick M.D. Mskudjq2gy Tablets Take 1 Tablet Twice A Day 180tadejah Dick M.D. Kegpdevavlgyks73xx Tablets Take 1 Tablet Twice A Day as Directed 180tadejah Dick M.D. Fjubt832Fmqq Solution Rec Every 3 months Sheree Dick M.D. Acetaminophen Extra Wokyssse312oy Tablets take as directed when needed Unknown Lidocaine5% Patches apply for 12 hours, remove for 12 hours for back pain 30units Sheree Dick M.D. Betamethasone Dipropionate0.05% Cream Apply twice daily as needed Unknown Clindamycin Phosphate1% Lotion Apply To Back Once Daily In Am. Unknown Pramipexole Dihydrochloride0.5mg Tablets Take 1 Tablet By Mouth Every Evening For RLS 90tabs Sheree Dick M.D. Hydroxychloroquine Jxsgitd575js Tablets Take 1 tablet twice daily 180tabs [...] Christiano 15 mg/dL 5-40 LDL Chol Calc ([facility]) 128 mg/dL High 0-99 LDL Calc Comment: [...] (SGPT) 23 IU/L 0-32 Lipid Panel 12/30/2022 [facility] Cholesterol, Total 239 mg/dL High (<200) Triglyceride 74 mg/dL (<150) HDL Chol 97 mg/dL (>39) LDL Cholesterol , Calculated 127 mg/dL (0-130) Non HDL Cholesterol (Calc) 142 mg/dL (<160) Hemoglobin A1c 12/30/2022 [facility] Hemoglobin A1c 5.5 % (4.0-5.6) 4 Basic Metabolic Panel 12/30/2022 [facility] Glucose 96 mg/dL (70-99) BUN 13 mg/dL (8-23) Creatinine 0.7 mg/dL (0.5-1.0) Sodium 136 mmol/L (133-145) Potassium 4.7 mmol/L (3.6-5.2) Chloride 101 mmol/L (98-107) Bicarbonate 24 mmol/L (22-29) Anion Gap 11 (4-17) Calcium 9.5 mg/dL (8.6-10.5) Estimated GFR Creatinine 99 ML/MIN/1. 73M2 5 Glucose Fingerstick 12/30/2022 Inhouse Glucose Fingerstick 94 High Fasting Canc Ant-125 10/23/2022 [facility] Canc Ant-125 7 U/ML (0-35) 6 Canc Ant-125 10/22/2022 [facility] Canc Ant-125 <pending> Glucose Fingerstick 08/28/2022 Inhouse Glucose Fingerstick 127 Glucose Fingerstick 05/01/2022 Inhouse Glucose Fingerstick 121 1 Prediabetes: 5.7 - 6 .4 Diabetes: >6.4 Glycemic control for adults with diabetes: <7.0 2 Prediabetes: 5.7 - 6 .4 Diabetes: >6.4 Glycemic control for adults with diabetes: <7.0 3 Vitamin D deficiency has been defined by the [place] of [employer] and an Endocrine Society practice guideline as a level of serum 25-OH vitamin D less than 20 ng/mL (1,2). The Endocrine Society went on to further define vitamin D insufficiency as a level between 21 and 29 ng/mL (2). 1. IOM ([place] of [employer]). 2010. Dietary reference intakes for calcium and D. [place]: The National Academies Press. 2. Delmy MF, Purvi NC, Meliton COLLIER, et al. Evaluation, treatment, and prevention of vitamin D deficiency: an Endocrine Society clinical practice guideline. JCEM. 2010; 96(7):1911-30. 4 MONITORING: In known diabetic patients, hemoglobin A1c targets should be discussed with health care provider. DIAGNOSTIC USE: The [place] Diabetes Association (ADA) and the World Health [...] therapy. Procedures Date Code Description Status 08/04/2024 08287 Collection Of Venous Blood B y Venipuncture Completed 12/11/2023 16717 Electrocardiogram Complete C ompleted 12/11/2023 05571 Collection Of Venous Blood B y Venipuncture Completed 12/30/2022 11161 Collection Of Venous Blood B y Venipuncture Completed 12/24/2021 52838 Electrocardiogram Complete C ompleted 10/09/2021 21305 Collection Of Capillary Bloo d Specimen Completed [...] M.D. 01/06/2025 M32.9 Systemic lupus erythematosus NOS Shreee Dick M.D. 01/06/2025 F41.1 Generalized anxiety disorder [...] Reason for Referral Status Appt Arik e [facility] Allergy Chronic cough/elevated I GE Closed [address] [place] [address] [phone] [facility] Pulmonary DYSPNEA, REDUCED DIFFUSION CAPACITY Closed 04/13/2024 [address] [place] [address] [phone] [facility] PULMONARY FUNCTION T EST EVALUATE DYSPNEA ON EXERTION R/O ASTHMA Closed 01/25/2024 [address] [place] [address] [phone] [facility] Lupus and Fibromyalgia Clos ed [address] [place] [address] [phone] [facility] Neurology & S lee Domi memory issues/ cognitive and impaired judgment Closed 07/23/2023 [address] [facility], [address] [place] [address] [phone] Donna Rodgers MD ELBOW TENDINITIS/LATERAL EPICONDYLITIS Closed [address] [facility] [address] [facility] [address] [place] [address] [phone] Adal Sexton MD COGNITIVE IMPAIRMENT Closed [address] [facility] [address] [place] [address] [phone] [facility] Neurology DECLAIMING MEMORY Closed 03/[address] [address] [phone]
--- OUTSIDE RECORDS SUMMARY | 2025-03-28 14:22 | XMS_ITS | Clinical Summary ---
Author Organization [facility] Address [address] [place] [address] Phone Care Team Providers Care Prefabricated Houses Trimmer Name Role Phone Sheree Dick MD Primary [...] Date Comments Hypertension Lupus (systemic lupus erythematosus) (CMS/[facility]ER[facility] V2 4, CMS/FORMERLY [facility] V28) Social History Tobacco Use Types Packs/Day [...] 08/11/2023 Social Influencers of Health Screening 08/11/2023 Depression Screening 07/13/2024 COVID-19 Vaccine ( season) 2025 06/09/2023, 07/16/2022, 01/02/2022, Additional history exists Influenza Vaccine (#1) 2025 , 05/09/2020, 05/03/2014 [...] Date/Time Associated Diagnosis Comments COMPREHENSIVE METABOLIC PANEL STAT 12/11/2024 6:43 AM EDT from Last 3 Months or Most Recently Relevant to Health Maintenance Results * (ABNORMAL) Comprehensive metabolic panel (12/11/2024 6:43 [...] MD LAB BLOOD ORDERABLES Final Resu lt [facility] [address] [place] [address], from Last 3 Months or Most Recently Relevant to Health Maintenance Insurance MEDICARE [facility] Care Teams Prefabricated Houses Trimmer Relationship Specialty Start Date End Date Sheree Dick MD PCP - General Endocrinology 10/31/24
== END 2025-03-28 11:56 | disposition home or self-care (01) ==
LOC: HO.HSMS 10:46
PROVIDERS: PCP Internal Medicine Endocrinology, Diabetes & Metabolism; Visit Provider Physician Assistant Medical
DX: G25.81 Restless legs syndrome (principal); F41.9 Anxiety disorder, unspecified; R20.0 Anesthesia of skin; R41.89 Other symptoms and signs involving cognitive functions and awareness
CPT/HCPCS: 99214

== ENCOUNTER → 2025-06-26 09:57 | Outpatient (AMB) | payer OTHER, SELFPAY ==
--- NOTE | 2025-06-26 09:58 | A.OFFVIS_ITS ---
Vital Signs 06/26/25 09:59 Height 5 ft 3 in Weight 165 lb 4 oz BMI 29.3 BP 136/82 Blood Pressure Location Rt brachial Position Sitting Pulse 83 Pulse Source Pulse Oximeter Pulse Oximetry (%) 98 Oxygen Delivery Method Room Air Intake Visit Reasons: 6 mo follow up Intake Note: Follow up RLS, Cognitive mental and function disorder and decline, Anxiety and bilateral finger numbness Crew Manager Required: No Accompanied by: Self / Same As Patient Allergies acetaminophen (From Percocet) Allergy (Mild, Verified 06/26/25 09:59) Migraine azathioprine (From Imuran) Allergy (Mild, Verified 06/26/25 09:59) Unknown celecoxib (From Celebrex) Allergy (Mild, Verified 06/26/25 09:59) Unknown latex Allergy (Mild, Verified 06/26/25 09:59) Unknown metformin Allergy (Mild, Verified 06/26/25 09:59) unknown oxycodone (From Percocet) Allergy (Mild, Verified 06/26/25 09:59) Migraine amoxicillin (From Augmentin) Allergy (Unknown, Verified 06/26/25 09:59) sdriffe Rash clavulanic acid (From Augmentin) Allergy (Unknown, Verified 06/26/25 09:59) sdriffe Rash Medication List - Last Reconciled 06/26/25 by Domi Andres MD amlodipine 5 mg PO DAILY apixaban (Eliquis) 5 mg PO BID buspirone 10 mg PO BID 3 months cholecalciferol (vitamin D3) 75 mcg PO DAILY citalopram (Celexa) 20 mg PO DAILY dicyclomine 10 mg PO BID PRN fluticasone propionate 50 mcg/actuation sprays intranasal gabapentin 100 mg PO BEDTIME hydroxychloroquine 200 mg PO BID lidocaine 5% 1 patch topical Q12H loratadine 10 mg PO DAILY losartan 100 mg PO DAILY onabotulinumtoxinA (Botox) IM ondansetron HCl 4 mg PO Q8H PRN pantoprazole 40 mg PO BID pramipexole 0.75 mg PO BEDTIME prucalopride 2 mg PO DAILY spironolactone 50 mg PO BID HPI Comments Details: 65 year old female with H/O anxiety, panic attacks and Cognitive decline presents today for a f/u. cognition is stable. On mar 15 she wnet to [facility] ER for slurring of speech , right face and right Ue numbness. It lasted 20 minutes. Stroke was ruled out.she had MRI and was asked to continue Eliquis for h/o DVT PE she also has sleep apnea -on [facility] f/u at [facility]. she is taking Buspirone 10mg PO BID, Panic attacks have improved since last visit.Anxiety is better. Claudia Sal discharged her from therapy as she was stable. She stopped lunesta She says her RLS symptoms are better with Pramipexole 0.75mg, but symptoms are starting early in the evening She was dx with small fiber neuropathy by [facility], she continues to take 100mg Gabapentin at night. She still has difficulty with STM, word finding difficulty and recall, lacks attention and focus. She has to complete one task at a time purposefully and mindfully. Patient education provided on self care today. She likes to cook has to turn the seasoning jars upside down to remember which ones were used, uses stickies at home, and a timer for laundry. She gets confused when driving and using the GPS navigation though she is adapting with coping strategies. No highway. She is socially active with her jehovah's witness, community and social activities. [facility] Medical History Carpal tunnel syndrome of right wrist Restless legs syndrome (RLS) Numbness and tingling Cognitive disorder Prediabetes HTN (hypertension) Gastritis Hereditary spherocytosis Osteopenia GERD (gastroesophageal reflux disease) Small fiber neuropathy DVT (deep vein thrombosis) in Pulmonary emboli SLE (systemic lupus erythematosus related syndrome) Kidney stone Fibromyalgia SVT (supraventricular tachycardia) PVC (premature ventricular contraction) IBS (irritable bowel syndrome) Depression Anxiety PCOD (polycystic ovarian disease) Autoimmune hemolytic anemia Retinal detachment History of open sigmoidectomy Family History Father Diabetes Mother Diabetes Brother Diabetes Social History Unable to assess alcohol history related to: Unable to respond and Unknown Alcohol intake: never Patient Tobacco Use Status: Never used Tobacco Physical Exam Vital Signs: Last Vital Signs Pulse 83 06/26/25 09:59 BP 136/82 06/26/25 09:59 Pulse Ox 98 06/26/25 09:59 Oxygen Delivery Method Room Air 06/26/25 09:59 BMI result Body Mass Index 29.3 Const General: cooperative, comfortable and no acute distress Nutritional Appearance: average body habitus Orientation/consciousness: patient oriented x3 Eyes General: appearance normal, both eyes and all related structures Pupils: Equal, round and reactive pupils present, Pupils normal by confrontation and Pupil accommodation reflex normal Neck Neck: Yes full ROM and Yes supple Resp Effort & Inspection: normal respiratory effort and able to speak in complete sentences Neuro Other: General: patient oriented x3, tone normal, moves all extremities, Normal light touch and pain sensation and CN's II-XI intact bilaterally Cranial nerves: Yes CN's II-XII intact bilaterally, Yes Facial sensation intact/muscles of mastication intact, Yes Equal, round and reactive pupils present, Yes Normal facial strength present, Yes Midline tongue present, Yes Ability to bilaterally rotate head present and Yes Ability to bilaterally elevate shoulders present Gait exam (Neuro): Normal gait present Motor exam (neuro): 5/5 motor strength present throughout and Normal motor mus kasie tone present throughout Coordination: [id number] test normal Psych Appearance: grossly normal Speech and movement: Normal speech and movement present Affect: No normal affect Thought process: Normal thought process present Assessment & Plan Assessment & Plan (1) Restless legs syndrome (RLS): Code(s): G25.81 - Restless legs syndrome Category: Medical (2) Cognitive disorder: Code(s): F09 - Unspecified mental disorder due to known physiological condition Category: Medical (3) Anxiety: Code(s): F41.9 - Anxiety disorder, unspecified Category: Medical (4) Cognitive decline: Code(s): R41.89 - Other symptoms and signs involving cognitive functions and awareness Category: Medical Plan ER and neuro notes form [facility] for review of her recent admissions Change Pramiprexole 0.75mg PO q 4 pm and gabapentin 100mg at bedtime Continue Buspirone to 10mg BID, as she continues to have anxiety. Continue Citalopram 20mg PO F/u [facility] sleep for [facility] therapy monitoring. Scribe Plan - Not visible on output: MMSE next visit. Coding Level of Care Code Est Pt Level 4 (03681) Add On Problem Visit Only Diagnoses Restless legs syndrome (RLS) G25.81 Cognitive disorder F09 Anxiety F41.9 Cognitive decline R41.89
[2025-06-26 09:59] VITALS: BP 136/82; PULSE 83; O2SAT 98; BMI 29.3
== END ==
LOC: HO.HSMS 09:58
PROVIDERS: PCP Internal Medicine Endocrinology, Diabetes & Metabolism; Visit Provider Psychiatry & Neurology Neurology
DX: G25.81 Restless legs syndrome (principal); R41.89 Other symptoms and signs involving cognitive functions and awareness; F41.9 Anxiety disorder, unspecified
CPT/HCPCS: 99214

== ENCOUNTER 2025-07-11 08:50 | Outpatient (AMB) | payer OTHER, SELFPAY ==
--- OUTSIDE RECORDS SUMMARY | 2025-07-08 06:13 | XMS_ITS | Encounter Summary ---
Author Organization [facility] Address [address] [place] [address] Care Team Providers Care Salesperson Furs Name Role Phone Sheree Dick MD Primary Care Provid er Encounter Details Date Type Department Care Team (Late st Contact Info) Description 07/08/2025 6:13 AM EST - 07/08/2025 8:21 AM EST [facility] Emergency [address] [place] [id number] Discharge Disposition: Home or Self Care Social History Tobacco Use Types Packs/Day Years Used Date Smoking Tobacco: Never Smokeless Tobacco: Never Alcohol Use Standard Drinks/Week Comments Yes 0 (1 standard drink = 0.6 oz pur e alcohol) socially Comments Unknown Sex and Gender Information Value Date Recorded Sex Assigned at Female 10/31/2024 12:55 PM EDT Legal Sex Female 12:45 PM EST Gender Identity Female 10/31/2024 12:55 PM EDT Sexual Orientation Straight 10/31/2024 12 :55 PM EDT documented as of this encounter Discharge Disposition Disposition Code Departure Means Destination Home or Self Care documented in this encounter Plan of Treatment Not on file documented as of this encounter Visit Diagnoses Not on filedocumented in this encounter Care Teams Salesperson Furs Relationship Specialty Start Date End Date Sheree Dick MD PCP - General Endocrinology 10/31/24 documented as of this encounter
[2025-07-11 08:52] VITALS: BMI 28.3
--- NOTE | 2025-07-11 08:52 | A.PHYSOV ---
Vital Signs 07/11/25 08:52 Height 5 ft 3 in Weight 160 lb BMI 28.3 Intake Visit Reasons: severe buttock pain Intake Note: Patient is a 65 year old female here for severe sciatic pain left side into thigh. Patient also notes leg numbness, intermittent. Molder Apprentice Required: No Allergies acetaminophen (From Percocet) Allergy (Mild, Verified 07/11/25 08:55) Migraine azathioprine (From Imuran) Allergy (Mild, Verified 07/11/25 08:55) Unknown celecoxib (From Celebrex) Allergy (Mild, Verified 07/11/25 08:55) Unknown latex Allergy (Mild, Verified 07/11/25 08:55) Unknown metformin Allergy (Mild, Verified 07/11/25 08:55) unknown oxycodone (From Percocet) Allergy (Mild, Verified 07/11/25 08:55) Migraine amoxicillin (From Augmentin) Allergy (Unknown, Verified 07/11/25 08:55) sdriffe Rash clavulanic acid (From Augmentin) Allergy (Unknown, Verified 07/11/25 08:55) sdriffe Rash HPI Comments Details: History of Present Illness The patient is a 65 year old female presenting for evaluation of excruciating back and buttock pain with radiation into the leg. Patient did undergo left L5 TFESI 04/14/2025 with 2 months of greater than 50% reduction of her pain Her symptoms began approximately two weeks ago and have become excruciating. She describes a burning, throbbing pain that radiates through her buttock and down to her thigh, which is a new characteristic for her pain. The patient also reports associated numbness and tingling in her leg. Her pain is exacerbated by prolonged sitting or standing. She has tried extra-strength Tylenol and a muscle relaxer without obtaining relief. She reports taking gabapentin 100 mg at night. The patient has a history of two prior back injections, with the last one occurring in April, but she is uncertain which provided more benefit. She is on a blood thinner, which precludes the use of NSAIDs. She denies a history of diabetes. Pain Description - Onset: Started approximately two weeks ago and has become excruciating. - Location: Pain originates in the buttock area. - Radiation: Pain travels down to the thigh. - Quality: Described as a burning and throbbing sensation. - Associated symptoms: Reports numbness and tingling in the leg. - Exacerbating factors: Prolonged sitting or standing. - Interference with function: Inability to sit or stand for extended periods. Results [facility] Medical History Carpal tunnel syndrome of right wrist Restless legs syndrome (RLS) Numbness and tingling Cognitive disorder Prediabetes HTN (hypertension) Gastritis Hereditary spherocytosis Osteopenia GERD (gastroesophageal reflux disease) Small fiber neuropathy DVT (deep vein thrombosis) in Pulmonary emboli SLE (systemic lupus erythematosus related syndrome) Kidney stone Fibromyalgia SVT (supraventricular tachycardia) PVC (premature ventricular contraction) IBS (irritable bowel syndrome) Depression Anxiety PCOD (polycystic ovarian disease) Autoimmune hemolytic anemia Retinal detachment History of open sigmoidectomy Family History Father Diabetes Mother Diabetes Brother Diabetes Social History Alcohol intake: never Patient Tobacco Use Status: Never used Tobacco Review of Systems Narrative Review of Systems - Musculoskeletal: Reports back pain and buttock pain. - Neurological: Reports pain radiating to the thigh with associated numbness and tingling in the leg. - Endocrine: Denies diabetes. Physical Exam Exam Exam: Physical Exam Lumbar Spine: She is tender to the left lower lumbar facets. She has full range of motion of the lumbar spine. She does have an increase in pain with facet loading. Special Tests: Lhermittes sign was negative Heel Toe walk is normal Left straight leg raise: Negative Right straight leg raise: Negative Special tests Breanna test is negative Ganslen's test is negative SI Joint compression test negative Nga test negative Piriformis stretch is negative Lower Extremities: Full range of motion bilateral lower extremities. No calf pain or edema. Neuro: Sensation: Intact to lower extremities bilaterally Strength L2 (Psoas): 5/5 on the left and 5/5 on the right. L3 (Quads): 5/5 on the left and 5/5 on the right. L4 (Ant tibialis): 5/5 on the left and 5/5 on the right. L5 (EHL) 5/5 on the left and 5/5 on the right. S1 (Gastroc): 5/5 on the left and 5/5 on the right. DTR L4: (Patellar) Left 2 Right 2 S1: (Achilles) Left 2 Right 2 Babinski Downgoing No pathologic clonus. No involuntary movement. Vital Signs: BMI result Body Mass Index 28.3 Assessment & Plan Assessment & Plan (1) Lumbar radiculopathy: Code(s): M54.16 - Radiculopathy, lumbar region Category: Medical Plan Pain Management - Analgesia: The patient reports taking extra-strength Tylenol and a muscle relaxer without relief. - She also takes gabapentin 100 mg at night for nerve pain. - She is unable to take NSAIDs due to being on a blood thinner. - Activities of daily living: Pain limits her ability to sit or stand for long periods. - Affect: Reports she could be better. Plan Patient was informed and verbally consented to the use of an ambient scribe for clinic note documentation during this visit. 1. Lumbago With Sciatica The patient's presentation with excruciating, burning, throbbing pain radiating to the thigh, accompanied by numbness and tingling, is consistent with acute nerve-related pain. Given her use of a blood thinner, which contraindicates NSAIDs, an oral steroid course is an appropriate alternative to manage inflammation. I also recommend left L5 TFESI and she is eager to proceed. We will obtain prior authorization for her injection and contact her once we have done so. The plan includes prescribing a 9-day prednisone taper to calm down the inflammation. It was also noted that her current gabapentin dosage of 100 mg is low, and an increase can be considered for better management of neuropathic pain. Additionally, a request for insurance approval will be submitted to repeat her second, more nerve-focused injection. Discussion Notes I explained to the patient that her symptoms, including the burning, throbbing pain and the numbness and tingling in her leg, are indicative of nerve pain. We discussed several treatment options, including adjusting her medications or proceeding with another injection. I recommended starting a 9-day course of oral prednisone to help reduce inflammation, noting that this is a safe alternative to NSAIDs given her use of a blood thinner. I also advised her that her current dose of gabapentin is very low and could be increased to better control her nerve pain. We will request insurance authorization to repeat the second type of injection she received previously, as it is more targeted for nerve pain. I informed her that the injection cannot be performed today and that it typically takes a couple of weeks to receive approval and schedule the procedure. Our office will contact her as soon as we have approval. Patient Instructions - Take the prednisone prescription as directed for a 9-day course to help with pain and inflammation. - You may increase your gabapentin dose, as your current dose is very low for treating nerve pain. - Do not take anti-inflammatory medicines like ibuprofen or naproxen because you are on a blood thinner. - We are requesting approval from your insurance for another back injection. - Our office will call you to schedule the injection once it is approved, which may take a couple of weeks. Medications: New prednisone 3 tabs po for 3 days, 2 tabs po for 3 days, 1 tabs po for 3 days 20 mg PO DAILY 18 tabs 0RF 9 days M54.16 - Radiculopathy, lumbar region Coding Level of Care Code Est Pt Level 4 (06865) Diagnoses Lumbar radiculopathy M54.16
--- OUTSIDE RECORDS SUMMARY | 2025-07-11 10:48 | XMS_ITS | Encounter Summary ---
Author Organization [facility] Address [address] [place] [address] Phone Care Team Providers Care Computer Patternmaker Name Role Phone Sheree Dick MD Primary Care Prov ider Reason for Referral * Physical Therapy (Routine) - Closed Specialty Diagnoses / Procedures Referred By Brandon rosario Referred To Contact Physical Therapy Hetal Nunez APRN [address] [place] [address] Phone: tel: [address] [address] Phone: tel: Referral ID Status Reason Start Date Expiration Date Visits Re quested Visits Authorized [id number] Closed 03/30/2020 03/30/2021 1 1 Encounter Details Date Type Department Care Team (Late st Contact Info) Description 03/30/2020 Transcribe Orders [facility] [address] [place] [address] Hetal Nunez APRN [address] [place] [address] Social History Tobacco Use Types Packs/Day Years [...] Diagnoses Order Schedule Ambulatory referral to [facility] Physical Therapy Outpatient Referral Routine Ordered: 03/30/2020 documented as of this encounter Visit Diagnoses Not on filedocumented in this encounter Care Teams Computer Patternmaker Relationship Specialty Start Date End Date Sheree Dick MD [address] [place] [address] [place] [address] PCP - General 11/16/14 documented as of this encounter Additional Source Comments The information contained in this document represents components of the legal health record. It is not the complete legal health record.[facility]
--- OUTSIDE RECORDS SUMMARY | 2025-07-11 10:48 | XMS_ITS | Clinical Summary ---
Author Organization [facility] Address [address] [place] [address] Phone Care Team Providers Care Firewall Security Engineer Name Role Phone Sheree Dick MD Primary [...] ZOSTER VACCINES (2 of 2) 05/14/2023 03/19/2023 POTASSIUM LEVEL 04/30/2024 04/30/2023, 01/03/2016 INFLUENZA VACCINE (#1) 2025 , 05/09/2020, 05/03/2014 COVID-19 VACCINE ( season) 2025 07/16/2022, 01/02/2022, 05/07/2021, Additional history exists CREATININE LEVEL 05/30/2025 05/30/2024, , 01/03/2016 SCREENING [...] Date/Time Associated Diagnosis Comments COMPREHENSIVE METABOLIC PANEL (CMP) Routine 05/30/2024 9:21 AM EST Systemic lupus erythematosus, unspecified SLE type, unspecified organ involvement status Long-term use of Plaquenil COMPREHENSIVE METABOLIC PANEL (CMP) Routine 04/30/2023 12:12 PM EDT Systemic lupus erythematosus, unspecified SLE type, unspecified organ involvement status from Last 3 Months or Most Recently Relevant to Health Maintenance Results * Comprehensive metabolic panel (05/30/2024 9:21 AM EST) Only the most recent of2 resultswithin the time period is included. Blood us Maria Victoria Jones MD LAB BLOOD BKR ORDERABLES Final Result EXTERNAL NON-INTERFACED REF LAB from Last 3 Months or Most Recently Relevant to Health Maintenance Insurance [employer] PPO CIGNA PPO CIGNA PPO CIGNA PPO CIG[employer] PPO CIG[employer] PPO Care Teams Firewall Security Engineer Relationship Specialty Start Date End Date Sheree Dick MD [address] [place] [address] [place] [address] PCP - General 11/16/14 Additional Source Comments The information contained in this document represents components of the legal health record. It is not the complete legal health record.[facility]
--- OUTSIDE RECORDS SUMMARY | 2025-07-11 10:48 | XMS_ITS | Continuity of Care Document ---
Author Organization [facility] [address] [facility] [address] [place] [address] Phone [phone] Problems Active Problems Provider Date Autoimmune hemolytic [...] Patient has never smoked Smoking Status Reviewed: 05/08/25 Patient has never sm oked Allergies and [...] Qnty Indications Order ing Provider Date Amlodipine Mywyxfpp7or Tablets 1 by mouth every day 90tabs Sheree Dick M.D. 04/06/2024 Losartan Gwjheafkj334jm Tablets 1 by mouth every day 90tabs [...] 30tabs Sheree Dick M.D. 03/06/2023 Albuterol Sulfate WWG958(90Base) mcg/Act Aerosol use 2 puffs every 4 to 6 hours as needed 6.700gm Sheree Dick M.D. 12/30/2022 Fluticasone Krkobsajeo55amm/Act Suspension Use 2 Sprays In Each Nostril Once Daily as Needed 48gm Sheree Dick M.D. 07/10/2022 Citalopram Csizvyxmhfny51vx Tablets Take One Tablet Daily 135tabs Sheree Dick M.D. 04/06/2022 Zyrtec Kmamxew06tx Capsules take 1 capsule daily as needed Unknown Prucalopride Aidhcsdlg6wz Tablets 1 qd Unknown Tutftxqzlkn1jp Tablets 1 qhs Unknown Buspirone QLK80gt Tablets 1 by mouth twice a day Unknown Pantoprazole Hayadx21sw Tablets DR 1 by mouth every day Unknown Dicyclomine GXJ46hn Capsules prn Unknown Izbkkdimjz786ss Capsules take 1 capsules by mouth every day at bedtime Unknown Vitamin F269dpe (1000 Ut) Capsules 2 by mouth every day Sheree Dick M.D. Rdrgixn6gf Tablets Take 1 Tablet Twice A Day 180tadejah Dick M.D. Lymitlbbeubdzy07hc Tablets Take 1 Tablet Twice A Day as Directed 180tadejah Dick M.D. Vnjia234Ermb Solution Rec Every 3 months Sheree Dick M.D. Acetaminophen Extra Jzffiqam148tu Tablets take as directed when needed Unknown Lidocaine5% Patches apply for 12 hours, remove for 12 hours for back pain 30units Sheree Dick M.D. Betamethasone Dipropionate0.05% Cream Apply twice daily as needed Unknown Clindamycin Phosphate1% Lotion Apply To Back Once Daily In Am. Unknown Pramipexole Dihydrochloride0.5mg Tablets Take 1 Tablet By Mouth Every Evening For RLS 90tabs Sheree Dick M.D. Hydroxychloroquine Igyyuav158nd Tablets Take 1 tablet twice daily 180tabs Sheree Dick M.D. Vital Signs Date Vital Result Comment 05/08/2025 2:46pm BP Systolic 118 mmHg BP Diastolic 78 mmHg Heart Rate 75 /min Height 63 inches 5'3 Weight 161.38 lb BMI (Body Mass Index) 28.6 kg/m2 Results Test Acquired Date Facility Test Result H/L Range Note Glucose Fingerstick 05/08/2025 Inhouse Glucose Fingerstick 94 Lipid Panel 01/07/2025 [facility] Cholesterol, Total 220 mg/dL High 100-199 Triglycerides 88 mg/dL 0-149 HDL Cholesterol 77 mg/dL >39 VLDL Cholestero l Christiano 15 mg/dL 5-40 LDL Chol Calc ([facility]) 128 mg/dL High 0-99 LDL Calc Comment: TNP CBC With Differential/Pl atelet 01/07/2025 [facility] WBC [...] x10E3/uL 0.0-0.1 NRBC TNP Hematology Comments: TNP Hemoglobin A1c 01/07/2025 [facility] Hemoglobin A1c 5.3 % 4.8-5.6 1 Comp. Metabolic Panel (14) 01/07/2025 [facility] Glucose 101 mg/dL High 70-99 BUN 17 mg/dL 8-27 Creatinine 0.72 mg/dL 0.57-1.00 eGFR 94 mL/min/1. 73 >59 BUN/Creatinine Ratio 24 12-28 [...] Glucose Fingerstick 01/06/2025 Inhouse Glucose Fingerstick 111 CBC With Differential/Pl atelet 08/04/2024 [facility] WBC [...] Hematology Comments: TNP Comp. Metabolic Panel (14) 08/04/2024 [facility] Glucose [...] Alt (SGPT) 19 IU/L 0-32 Glucose Fingerstick 08/04/2024 Inhouse Glucose Fingerstick 103 Hemoglobin A1c 08/04/2024 [facility] Hemoglobin A1c 5.6 % 4.8-5.6 2 Glucose Fingerstick 04/06/2024 Inhouse Glucose Fingerstick 135 Comp. Metabolic [...] Alt (SGPT) 23 IU/L 0-32 CBC With Differential/Pl atelet 12/11/2023 [facility] WBC [...] x10E3/uL 0.0-0.1 NRBC TNP Hematology Comments: TNP TSH Rfx on Abnormal to Free T4 12/11/2023 [facility] TSH Rfx on Abnormal to Free T4 1.540 uIU/mL 0.450-4.50 0 Vitamin D, 25-Hydroxy 12/11/2023 [facility] Vitamin D, 25-Hydroxy 24.5 ng/mL Low 30.0-100.0 3 Glucose Fingerstick 12/11/2023 Inhouse Glucose Fingerstick 271 Lipid Panel 12/30/2022 [facility] Cholesterol, Total 239 mg/dL High (<200) Triglyceride 74 mg/dL (<150) HDL Chol 97 mg/dL (>39) LDL Cholesterol , Calculated 127 mg/dL (0-130) Non HDL Cholesterol (Calc) 142 mg/dL (<160) Hemoglobin A1c 12/30/2022 [facility] Hemoglobin A1c 5.5 % (4.0-5.6) 4 Basic Metabolic Panel 12/30/2022 [facility] Glucose 96 mg/dL (70-99) BUN 13 mg/dL (8-23) Creatinine 0.7 mg/dL (0.5-1.0) Sodium 136 mmol/L (133-145) Potassium 4.7 mmol/L (3.6-5.2) Chloride 101 mmol/L (98-107) Bicarbonate 24 mmol/L (22-29) Anion Gap 11 (4-17) Calcium 9.5 mg/dL (8.6-10.5) Estimated GFR Creatinine 99 ML/MIN/1. 73M2 5 Glucose Fingerstick 12/30/2022 Inhouse Glucose Fingerstick 94 High Fasting Canc Ant-125 10/23/2022 [facility] Canc Ant-125 7 U/ML (0-35) 6 Canc Ant-125 10/22/2022 [facility] Canc Ant-125 <pending> Glucose Fingerstick 08/28/2022 Inhouse Glucose Fingerstick 127 Glucose Fingerstick 05/01/2022 Inhouse Glucose Fingerstick 121 1 Prediabetes: 5.7 - 6 .4 Diabetes: >6.4 Glycemic control for adults with diabetes: <7.0 2 Prediabetes: 5.7 - 6 .4 Diabetes: >6.4 Glycemic control for adults with diabetes: <7.0 3 Vitamin D deficiency has been defined by the [place] [employer] and an Endocrine Society practice guideline as a level of serum 25-OH vitamin D less than 20 ng/mL (1,2). The Endocrine Society went on to further define vitamin D insufficiency as a level between 21 and 29 ng/mL (2). 1. IOM ([place] [employer]). 2010. Dietary reference intakes for calcium and D. [place]: The National Academies Press. 2. Delmy MF, Purvi KULKARNI, Meliton COLLIER, et al. Evaluation, treatment, and prevention of vitamin D deficiency: an Endocrine Society clinical practice guideline. JCEM. 2010; 96(7):1911-30. 4 MONITORING: In known diabetic patients, hemoglobin A1c targets should be discussed with health care provider. DIAGNOSTIC USE: The [place] Diabetes [employer] (ADA) and the World Health [...] therapy. Procedures Date Code Description Status 08/04/2024 19432 Collection Of Venous Blood B y Venipuncture Completed 12/11/2023 40241 Electrocardiogram Complete C ompleted 12/11/2023 27527 Collection Of Venous Blood B y Venipuncture Completed 12/30/2022 80301 Collection Of Venous Blood B y Venipuncture Completed 12/24/2021 02582 Electrocardiogram Complete C ompleted 10/09/2021 21893 Collection Of Capillary Bloo d Specimen Completed Medical Devices Description No Information Available Encounters Type Date Location Provider Dx Diagnosis Office Visit 05/08/2025 2:30p Main Office Sheree Fischer M.D. R73.03 Prediabetes M32.9 Systemic lupus eryth ematosus, unspecified F41.1 Generalized anxiety disorder I10 Essential (primary) hypertension G31.84 Mild cognitive impai rment of uncertain or unknown etiology Z86.718 Personal history of other venous thrombosis and embolism G47.33 Obstructive sleep ap jimmie (adult) (pediatric) K21.00 Gastro-esophageal re flux dis with esophagitis, without bleed K58.1 Irritable bowel synd arsalan with constipation Z86.73 Prsnl hx of TIA (TIA ), and cereb infrc w/o resid deficits Assessments Date Code Description Provider 05/08/2025 R73.03 Prediabetes Sheree Linares M.D. 05/08/2025 M32.9 Systemic lupus erythematosus NOS Sheree Dick M.D. 05/08/2025 F41.1 Generalized anxiety disorder Sheree Dick M.D. 05/08/2025 I10 Essential (primary) hyperten julienne Sheree Dick M.D. 05/08/2025 G31.84 Mild cognitive disorder NOS Sheree Dick M.D. 05/08/2025 Z86.718 Personal history of other venous thrombosis and embolism Sheree Dick M.D. 05/08/2025 G47.33 Obstructive slee p apnea (adult) (pediatric) Sheree Dick M.D. 05/08/2025 K21.00 Gastro-esophagea l reflux disease with esophagitis, without bleeding Sheree Dick M.D. 05/08/2025 K58.1 Irritable bowel syndrome with constipation Sheree Dick M.D. 05/08/2025 Z86.73 Personal history of transient ischemic attack (TIA), and cerebral infarction without residual deficits Sheree Dick M.D. Plan of Treatment Future Appointment(s):* 09/11/2025 1:00 pm - Sheree Dick M.D. at Main Office 05/08/2025 - Sheree Dick M.D.* R73.03 Prediabetes * M32.9 Systemic lupus erythematosus NOS * F41.1 Generalized anxiety disorder * I10 Essential (primary) hypertension * G31.84 Mild cognitive disorder NOS * Z86.718 Personal history of other venous thrombosis and embolism * G47.33 Obstructive sleep apnea (adult) (pediatric) * K21.00 Gastro-esophageal reflux disease with esophagitis, without bleeding * K58.1 Irritable bowel syndrome with constipation * Z86.73 Personal history of transient ischemic attack (TIA), and cerebral infarction without residual deficits Functional Status Description No Information Available Mental Status Description No Information Available Referrals Refer to Dr Reason for Referral Status Appt Arik e [facility] Allergy Chronic cough/elevated I GE Closed [address] [place] [address] [phone] [facility] Pulmonary DYSPNEA, REDUCED DIFFUSION CAPACITY Closed 04/13/2024 [address] [place] [address] [phone] [facility] Pulmonary PULMONARY FUNCTION T EST EVALUATE DYSPNEA ON EXERTION R/O ASTHMA Closed 01/25/2024 [address] [place] [address] [phone] [facility] Lupus and Fibromyalgia Clos ed [address] [place] [address] [phone] [facility] Neurology & [facility] Domi memory issues/ cognitive and impaired judgment Closed 07/23/2023 [address] [facility], [address] [place] [address] [phone] Donna Rodgers MD ELBOW TENDINITIS/LATERAL EPICONDYLITIS Closed [address] [facility] [address] [place] [address] [phone] Adal Sexton MD COGNITIVE IMPAIRMENT Closed [address] [facility] [address] [place] [address] [phone] [facility] Neurology DECLAIMING MEMORY Closed 03/[address] [facility] [place] [place] [address] [place] [address] [phone]
--- OUTSIDE RECORDS SUMMARY | 2025-07-11 10:48 | XMS_ITS | Clinical Summary ---
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 Role Phone Sheree Dick MD Primary [...] Encounters Date Type Department Care Team Description 07/08/2025 6:13 AM EST - 07/08/2025 8:21 AM EST Emergency [facility] Emergency [address] [place] [address] Discharge Disposition: Home or Self Care from [...] Last Done Comments Breast Cancer Screening 1962 Colorectal Cancer Screening: Colonoscopy 1962 Drug Screen 1962 Naloxone Order 1962 Opioid Substance Agreement 1962 Pain Assessment 1962 DTaP,Tdap,and Td Vaccines (1 - Tdap) 1981 Cervical Cancer Screening: Pap Smear 1983 Pneumococcal Vaccine: 50+ Years (1 of 1 - PCV) 01/13/2012 Cholesterol Screening (Lipid Panel) 08/11/2023 HIV Screening 08/11/2023 Hepatitis C Screening [...] mmol/L LAB CHEMISTRY METHOD 12/11/2024 7:28 AM EDT [facility] Potassium 3.9 3.5 - 5.5 mmol/L LAB CHEMISTRY METHOD 12/11/2024 7:28 AM [facility] Chloride 110 96 - 110 mmol/L LAB CHEMISTRY METHOD 12/11/2024 7:28 AM [facility] CO2 24 21 - 32 mmol/L LAB CHEMISTRY METHOD 12/11/2024 7:28 AM [facility] Anion Gap 5 3 - 11 LAB CHEMISTRY METHOD 12/11/2024 7:28 AM [facility] Glucose 104(H) 70 - 100 mg/dL LAB CHEMISTRY METHOD 12/11/2024 7:28 AM [facility] BUN 12 5 - 25 mg/dL LAB CHEMISTRY METHOD 12/11/2024 7:28 AM [facility] Creatinine 0.72 0.50 - 1.10 mg/dL LAB CHEMISTRY METHOD 12/11/2024 7:28 AM [facility] eGFR 95 >=60 mL/min/1. 73m2 LAB CHEMISTRY METHOD 12/11/2024 7:28 AM [facility] Comment:Calculation based on the Chronic Kidney Disease Epidemiology Collaboration (CKD-EPI) equation refit without adjustment for race. BUN/Creatinine Ratio 16.7 LAB CHEMISTRY METHOD 12/11/2024 7:28 AM [facility] Calcium 9.0 8.5 - 10.5 mg/dL LAB CHEMISTRY METHOD 12/11/2024 7:28 AM [facility] AST (SGOT) 18 10 - 42 unit/L LAB CHEMISTRY METHOD 12/11/2024 7:28 AM [facility] ALT (SGPT) 27 10 - 60 unit/L LAB CHEMISTRY METHOD 12/11/2024 7:28 AM [facility] Alkaline Phosphatase 85 42 - 121 unit/L LAB CHEMISTRY METHOD 12/11/2024 7:28 AM [facility] Total Protein 7.5 6.0 - 8.0 g/dL LAB CHEMISTRY METHOD 12/11/2024 7:28 AM [facility] Albumin 3.4 3.2 - 5.0 g/dL LAB CHEMISTRY METHOD 12/11/2024 7:28 AM [facility] Total Bilirubin 0.3 0.0 - 1.4 mg/dL LAB CHEMISTRY METHOD 12/11/2024 7:28 AM [facility] Blood Venous blood specimen / Unknown Venipuncture / Unknown 12/11/2024 6:43 AM EDT 12/11/2024 7:01 AM EDT Patrice Headley MD LAB BLOOD ORDERABLES [facility] [address] [place] [address], from Last 3 Months or Most Recently Relevant to Health Maintenance Insurance MEDICARE [facility] Care Teams Paper Coating Machine Operator Relationship Specialty Start Date End Date Sheree Dick MD PCP - General Endocrinology 10/31/24
== END 2025-07-11 09:04 | disposition home or self-care (01) ==
PROVIDERS: PCP Internal Medicine Endocrinology, Diabetes & Metabolism; Visit Provider Physician Assistant
DX: M54.16 Radiculopathy, lumbar region (principal)
CPT/HCPCS: 99214